=== PATIENT | female | born 1995 | race Caucasian/White ===

== ENCOUNTER → 2024-09-26 07:55 | Outpatient (CLI) | payer MEDICARE, MEDICAID, SELFPAY ==
--- OUTSIDE RECORDS SUMMARY | 2024-09-26 07:58 | XMS_ITS | Continuity of Care Document ---
Author Organization [facility], [facility] Address [address] [place] [address] Assessment No assessment recorded. Plan of Treatment Reminders Order Date Submit Date Provider Last Modified By Organization Details Last Modified Time Details Appointments None recorded. Lab None recorded. Referral physical therapist referral 2024 025 [email or web address] [facility], [address], [place], [address], 5 13:11:52 physical therapist referral 2024 025 [email or web address] [facility], [address], [place], [address], 5 13:11:52 Procedures None recorded. Surgeries None recorded. Imaging XR, knee, 3 view 2024 025 [email or web address] 8 Not available 13:19:42 XR, wrist, 3 or more view 2024 025 [email or web address] 8 [facility], [address] [place] [address] , [place], [address], 13:19:42 Medication Orders None recorded. Patient TargetsNo targets recorded. Patient InstructionsNo instructions recorded. Reason for Referral Physical Therapist Referral for Pain of right knee joint Referring Physician: [facility], Encounter Date: 09/21/2024 Physical Therapist Referral for Pain of left wrist Referring Physician: [facility], Encounter Date: 09/21/2024 Results Created Date Observation Date Name Description Value Unit Range Abnormal Flag Note LastModifiedBy Organization Detail LastModifiedTime 09/04/19 25 US, abdom en, compl ete No observ ation record ed. [email or web address] Not Available 2024 15:51:14 Result Notes None recorded. Problems Name Problem SNOMED Code Status Onset Date Resolution Date Notes Provider Name and Address Organization Details Recorded Time Fibromyalgia 494627585 Active 2024 Yahaira EvansCARLOS glover [address], [place], [address], [place] - [facility] 5 11:12:18 Obsessive-comp ulsive disorder 455376616 Active 2024 Yahaira PandeyROBBIEC [address], [place], [address], [place] - [facility] 5 11:12:28 Bipolar disorder 22538136 Active 2024 Yahaira EvansROBBIE gloverC [address], [place], [address], [place] - [facility] 5 11:12:36 Migraine 54976756 Active 2024 Yahaira Pandey ROBBIEC [address], [place], [address], [place] - [facility] 5 11:12:44 Iron deficiency 69921226 Active 2024 Yahaira Pandey ROBBIEC [address], [place], [address], [place] - [facility] 5 09:36:47 Problem Notes None recorded. Procedures Surgical History Date Name Laterality Status Provider Name and Address Organization Details Recorded Time 11/17/19 25 Hysterectomy completed Zonia Valadez [place] - [facility] 07/05/2024 10:21:49 12/10/19 24 Hysterectomy completed Zonia Allyson [place] - [facility] 06/26/2024 10:42:30 11/17/19 24 Adnexal surgery completed Zonia Valadez [place] - [facility] 07/05/2024 10:21:49 04/18/19 04 ENT Surgery completed Zonia Valadez [place] - [facility] 07/05/2024 10:21:49 Wrist arthroscopy/surge ry completed Zoniafaith Valadez [place] - [facility] 06/26/2024 10:41:14 Elbow arthroscopy/surge ry completed Zonia Allyson [place] - [facility] 06/26/2024 10:41:27 Ankle arthroscopy/surge ry completed Zonia Allyson [place] - [facility] 06/26/2024 10:41:34 tonsillectomy completed Zoniafaith Valadez [place] - [facility] 06/26/2024 10:41:45 adenoid excision completed Zonia Allyson [place] - [facility] 06/26/2024 10:41:59 Imaging Results None recorded. Procedure Notes None recorded. Medical Equipment None Reported. Medications Name Sig Start Date Stop Date Status Note LastModified by Organization Details LastModified Time naltrexone 50 mg tablet Take 1 tablet every day by oral route as directed . 2024 active Not Available Not Available Not Avai lable gabapentin 800 mg tablet Take 1 tablet 3 times a day by oral route as directed . active Not Available Not Available No t Available lithium carbonate 300 mg capsule Take 1 capsule twice a day by oral route as directed . active Not Available Not Available No t Available rizatriptan 10 mg disintegrati ng tablet Take 1 tablet as needed by oral route. 07/23 completed Not Available Not Available Not Available ferrous sulfate 325 mg (65 mg iron) tablet Take 1 tablet 3 times a day by oral route for 30 days. 2024 active Not Available Not Available Not Avai lable vitamin B complex tablet Take 1 tablet every day by oral route for 30 days. 2024 active Not Available Not Available Not Avai lable fluoxetine 20 mg capsule Take 1 capsule every day by oral route as directed . active Not Available Not Available No t Available Ubrelvy 100 mg tablet TAKE ONE (1) TABLET BY MOUTH NEEDED MAY REPEAT IN TWO HOURS IF NEEDED 2024 active Not Available Not Available Not Avai lable Caplyta 42 mg capsule Take 1 capsule every day by oral route as directed . active Not Available Not Available No t Available Qulipta 30 mg tablet active Not Available Not Available No t Available Vitals Date Recorded Body height Body mass index (BMI) Body weight Body temperature Heart rate Oxygen saturation Oxygen saturation in Arterial blood by Pulse oximetry Respiratory rate Systolic blood pressure Diastolic blood pressure Provider Name and Address Organization Details Last Updated DateTime 06/06/202 5 172.72 cm 35.8 kg/m2 604770. 61 g 98.2 [degF] 95 /min 99 % 99 % 18 /min 118 mm[Hg] 76 mm[Hg] Zonia Valadez [place] - [facility] 13:06:37 Social History Question Answer Notes LastModified by Organizat ion Details LastModified Time Tobacco Smoking Status Never Smoker Zonia Valadez null, [place] - [facility] 06/26/2024 10:40:46 Do You Have An Advance Directive? No Information not available 07/05/2024 Is Blood Transfusion Acceptable In An Emergency? Yes Information not available 07/05/2024 What Is Your Level Of Caffeine Consumption? Heavy Information not available 07/05/2024 How Much Tobacco Do You Chew? None Information not available 07/05/2024 Are You Deaf Or Do You Have Serious Difficulty Hearing? No Information not available 07/05/2024 What Type Of Diet Are You Following? SPECIFIC Information not available 07/05/2024 What Is The Highest Grade Or Level Of School You Have Completed Or The Highest Degree You Have Received? [id number] Information not available 07/05/2024 What Was The Date Of Your Most Recent Tobacco Screening? 06/26/2024 Information not available 06/26/2024 How Many Children Do You Have? 0 Information not available 07/05/2024 Do You Use Protection Against STDs? Always Information not available 07/05/2024 What Is Your Relationship Status? Single Information not available 07/05/2024 Do You Use Your Seat Belt Or Car Seat Routinely? Yes Information not available 07/05/2024 Are You Sexually Active? No Information not available 07/05/2024 Do You Have Smoke And Carbon Monoxide Detectors In Your Home? Yes Information not available 07/05/2024 Are You Passively Exposed To Smoke? No Information no t available 07/05/2024 Do You Use Sunscreen Routinely? Yes Information not available 07/05/2024 Sex: Female Functional Status Question Answer Note LastModified by Organizat ion Details LastModified Time How many times per week do you consume alcohol? Less than 1 time per week Information not available 06/26/2024 Do you use any illicit or recreational drugs? No Information not available 06/26/2024 Do you or have you ever used any other forms of tobacco or nicotine? No Information not available 06/26/2024 What is your level of alcohol consumption? None Information not available 07/05/2024 Do you or have you ever used smokeless tobacco? Never used smokeless tobacco Information not available 07/05/2024 Are you currently employed? No Information not available 07/05/2024 Are you able to care for yourself? Yes Information not available 07/05/2024 Do you or have you ever used e-cigarettes or vape? Never used electronic cigarettes Information not available 07/05/2024 What is your exercise level? Moderate Information not available 07/05/2024 Mental Status Question Answer Note LastModified by Organization D etails LastModified Time Do you feel stressed (tense, restless, nervous, or anxious, or unable to sleep at night)? [id number] Information not available 07/05/2024 Family History Relationship Description Onset Age of this Age Resolved Age Notes LastModified by Organization Details LastModified Time Father Heart disease [email or web address] Not available 2024 10:21:24 Father Depressive disorder [email or web address] Not available 2024 10:39:45 Father Hypercholest erolemia [email or web address] Not available 2024 10:21:24 Father Harmful pattern of use of alcohol [email or web address] Not available 2024 10:21:24 Father Hypertensive disorder [email or web address] Not available 2024 10:21:24 Father Osteoporosis [email or web address] Not avai lable 07/05/2024 10:21:24 Mother Anxiety disorder [email or web address] Not available 2024 10:40:04 Mother Depressive disorder [email or web address] Not available 2024 10:21:24 Maternal Grandmother Malignant tumor of breast tfogleman Not available 2024 10:21:24 Maternal Grandmother Malignant tumor of cervix tfogleman Not available 2024 10:21:24 Maternal Grandmother Malignant neoplasm of ovary tfogleman Not available 2024 10:21:24 Maternal Grandmother Arthritis tfogleman Not available 10:21:24 Sister Substance abuse [email or web address] Not available 2024 10:21:24 Medical History Condition Response Anxiety Disorder Y Eating Disorder Y Muscle, Joint, or Bone Problems Y Obesity Y Endometriosis Y Vision or Eye Problems Y Arthritis Y Ovarian Cyst Y Fibromyalgia Y Gynecological History Statement/Question Response Abnormal Pap N Flow Heavy Date of LMP 12/01/2023 Post Menopausal Bleeding N STIs/STDs N HPV Vaccine Y Duration of Flow (days) 0 Age at Menarche 17 Current Control Method Hysterectom y Frequency of Cycle (Q days) 0 Sexually Active? N Hormone Replacement Therapy N Obstetrics History GPAL:G 0 P 0 0 0 0 Past Encounters Encounter ID Performer Location Encounter Start Date Encounter Closed Date Diagnosis/Indication Diagnosis SNOMED-CT Code Diagnosis ICD10 Code Diagnosis Note [id number] Yahaira Pandey PA-C [facility] [address] [place] [address] 08/30/2024 09:35:23 08/30/2024 10:23:14 Iron deficiency 81768095 E61.1 Body mass index 30+ - obesity 364718543 Z68.36 Obesity 107150815 E66.9 Loss of hair 754673230 L 65.9 Abdominal discomfort 433 54153 R10.9 [id number] Yahaira Pandey PA-C [facility] [address] [place] [address] 09/21/2024 13:01:04 09/21/2024 13:19:42 Pain of right knee joint 1257628623 26591 M25.561 Pain of left wrist 98749 19176 62660 M25.532 Health Concerns Section Related Observation LastModified by Organization Detai ls LastModified Time None Recorded Concern Status LastModified by Organization Details LastModified Time None Recorded Payers Encounter Date Sequence Insurance Name Policy Number Policy Gaxiola Covered Member ID Gaxiola Member ID Guarantor Name 09/21/2024 1 [facility] (MEDICARE REPLACEMENT/A DVANTAGE - PPO) RICH Haynes [id number] Pravin Haynes Notes Date Note Type Note Provider Name and Address Organization Details Recorded Time 09/21/2024 text/html Pt is a 28 yo fe male with R knee pain that worsened Sep 01 2024 after stepping into a hole and hyperextending the knee. She reports having joint problems all her life. She is requesting custom made braces for the knee and wrist. I explained that braces take the place of the normal body anatomy and can decrease muscle tone, prevent the ability of strentfthening the joints and can prolong pain syndromes. Giving a brace at this juncture would be detrimental. She would be better served doing PT to strengthen her muscles to prevent future injuries. She is agreeable to PT. She also has L wrist pain. 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 Yahaira Pandey PA-C [address], [place], [address], [place] - [facility] 09/21/2024 13:22:52 OBGyn Episode No OBEpisode recorded.
--- OUTSIDE RECORDS SUMMARY | 2024-09-26 07:58 | XMS_ITS | Clinical Summary ---
Author Organization [facility] Address [address] [place] [address] Phone Care Team Providers Care Crop Picker Name Role Phone Marlene Nieto NP Primary Care Provider [phone] Shailesh Perez PT Unavailable Allergies Active Allergy Reactions Criticality Noted Date Comments Cottonseed Oil Hives,Itching 03/02/2023 Erythema and itching, swelling at injection site of testosterone CYPIONATE Fluoxetine Other (See Comments) 05/14/2019 Anxiety even with low dose Iodine Anaphylaxis High 04/29/2018 Shellfish Containing Products Anaphylaxis High 07/30/2021 Shellfish Derived Anaphylaxis High 08/24/2022 Shrimp Anaphylaxis High 07/22/2022 Medications testosterone enanthate (DELATESTRYL) 200 mg/mL IM Oil Inject 60 mg into the muscle once a week. 03/30/2023 Active BD TUBERCULIN SYRINGE 1 mL 25 gauge x 5/8 Misc Syringe Inject 1 Each into the muscle once a week. 02/24/2023 Active cetirizine (ZYRTEC) 10 mg Oral Tablet Take 10 mg by mouth daily. 04/12/2023 Active lurasidone (LATUDA) 40 mg Oral Tablet Take 40 mg by mouth daily. 04/19/2023 Active EPINEPHrine (EPIPEN) 0.3 mg/0.3 mL Inj Auto-InjectorIn dications:Fibro myalgia Inject 0.3 ml into the muscle as needed for Anaphylaxis. 2 mL 1 06/10/2023 Active Walker Misc MiscIndications :Weakness,Falls frequently,Fibr omyalgia 1 Each by Misc.(Non-Tremayne g; Combo Route) route daily. 07/01/2023 Active naltrexone (REVIA) 50 mg Oral Tablet Take 50 mg by mouth daily. 08/21/2023 Active lithium (LITHOBID) 300 mg Oral Tablet Sustained Release Take 300 mg by mouth 2 times daily. 08/03/2023 Active gabapentin (NEURONTIN) 400 mg Oral CapsuleIndicati ons:Fibromyalgi a Take 2 Capsules by mouth 3 times daily. 540 Capsule 2 02/28/2024 Active Active Problems Problem Noted Date Diagnosed Date Encounter for Medicare annual wellness exam 10/2023 Assessment & Plan (08/23/2023 11:42 AM EDT): Annual Medicare Wellness Visit completed. Lab work ordered. Care gaps addressed. Screenings reviewed. Patient to finish a HPV vaccination series through [employer]. Patient to inquire after cervical cancer screening through the [facility]. Generalized osteoarthritis of multiple sites 10/2023 Assessment & Plan (08/23/2023 11:39 AM EDT): Discussed presence of arthritis and recommended treatment therapies. Encourage increased physical activity and mobility exercises. Obsessive compulsive disorder 08/01/2023 Allergy to shellfish 06/06/2023 Assessment & Plan (06/06/2023 1:31 PM EST): Prescription for EpiPen sent to pharmacy. Patient aware to repeat use if no improvement of symptoms within 10 minutes if EMS has not responded. Patient aware to be seen in the emergency department if they do need to utilize an EpiPen. Bipolar disorder in partial remission 06/02/2023 Overview (06/06/2023): Last Assessment & Plan: Remains in care with counseling and psychiatry Falls frequently 05/19/2023 Assessment & Plan (08/23/2023 11:43 AM EDT): Utilizing Rolator. Falls decreased with use of rollator. Encouraged continued rollator use. Assessment & Plan (06/06/2023 1:31 PM EST): Utilizing cane. Assessment & Plan (05/19/2023 4:51 PM EST): Patient notes falling frequently at home. Utilizing cane in the home but would like wheelchair for assistance when out shopping. Chronic pain of both knees 05/19/2023 Assessment & Plan (05/19/2023 4:52 PM EST): Patient reports chronic pain in knees. Notes this makes ambulating difficult. Requesting wheelchair for ambulation assistance. Weakness 05/19/2023 Assessment & Plan (08/23/2023 11:41 AM EDT): PT recommended bariatric rollator. Prescription was sent to [facility]. Improvement of mobility and decrease falls with use of bariatric rollator. Assessment & Plan (05/19/2023 4:51 PM EST): Patient reports generalized weakness. Recommend referral to physical therapy for mobility assessment. Myalgia 05/19/2023 Otalgia of both ears 04/20/2023 Assessment & Plan (04/20/2023 11:59 AM EST): Symptoms intermittent. Likely secondary to eustachian tube dysfunction with allergy symptoms. Instructed to use Fluticasone nasal spray - 1 spray, ear nare, daily. Instructed to spray the medication in bilateral nares at a perpendicular angle then pinch nose and blow gently to milk the spray into the eustachian tube. Advised to continue use of Cetrizine 10 mg daily (or other preferred OTC antihistamine) until symptoms resolve. Injection site reaction 02/14/2023 Assessment & Plan (02/14/2023 3:15 PM EDT): Advised patient that it appears they are having an immunization injection site reaction with reactionary lymph nodes near the site of injection. No concern for cellulitis at this time. Only mild erythema at injection site. Encouraged to continue alternating acetaminophen/ibuprofen and encouraged to try utilizing heat/ice therapy for discomfort. Advised that if they develop erythema or swelling around the injection site, or if lymphadenopathy worsens/doesn't continue to improve, to follow up sooner in office. Patient already scheduled for annual wellness next week. Generalized anxiety disorder 11/15/2022 Post traumatic stress disorder (PTSD) 11/15/2022 Piercing 08/20/2022 Assessment & Plan (08/20/2022 4:05 PM EDT): Concern for infection around piercing. We will treat empirically with amoxicillin. Advised that if symptoms worsen or do not improve in the next 2-3 days, advised to call and we will add on Metronidazole. Gender dysphoria 07/26/2022 Overview (08/23/2023): Following with [facility] affirming services Assessment & Plan (08/23/2023 8:49 AM EDT): Currently undergoing HRT. Tolerating well. Assessment & Plan (08/20/2022 11:32 AM EDT): Currently undergoing HRT. Tolerating well. Morbid obesity 07/22/2022 Assessment & Plan (08/23/2023 11:40 AM EDT): Wt Readings from Last 3 Encounters: 08/23/23 290 lb (131.5 kg) 06/06/23 292 lb (132.5 kg) 05/19/23 296 lb (134.3 kg) Complicates care. Encouraged continued dietary and lifestyle modifications for weight loss. Encouraged increased overall activity, regular mobility exercise Assessment & Plan (06/06/2023 1:30 PM EST): Weight in office today 292 pounds, BMI 44.40 Weight at last office visit 286 lbs, BMI 43.49 Encouraged continued lifestyle modifications. Complicates care. Assessment & Plan (05/19/2023 4:49 PM EST): Weight at last office visit 286 lbs, BMI 43.49 Patient refused weight check again today. Encouraged continued lifestyle modifications. Complicates care. Assessment & Plan (08/20/2022 2:05 PM EDT): Weight at last office visit 286 lbs, BMI 43.49 Patient refused weight check today. Encouraged continued lifestyle modifications. Likely to see further weight loss with testosterone therapy and increased activity/dietary modifications. Assessment & Plan (07/22/2022 5:25 PM EDT): Weight in office 286 lb BMI 43.49. Patient notes that she started exercising recently. Advised patient that weight loss of 15 pounds over a 6-week timeframe is significant. Advised patient that a sustainable weight loss should have a goal of 1 to 2 pounds per week. Discussed the possibility of referral to [facility] surgical Associates. Encourage patient to look into the bariatric surgical information sessions provided by [facility]. Advised that she would be able to find further information regarding qualifications and expectations for these surgical and nonsurgical options. We will hold off on referral for now. Encouraged continued dietary and lifestyle modifications. Bipolar 1 disorder 07/22/2022 Assessment & Plan (08/23/2023 8:48 AM EDT): Following with psychiatry through [facility]. Assessment & Plan (08/20/2022 2:04 PM EDT): On the wait list to established with new psychiatry provider through [facility]. Assessment & Plan (07/22/2022 5:26 PM EDT): Patient given information for [place] therapy group and advised to reach out to them to establish care with local psychiatric provider. Personality disorder 07/22/2022 Assessment & Plan (08/23/2023 8:48 AM EDT): Following with psychiatry through [facility]. Also to establish with psychiatry through the [facility]. Other fpc (current) drug therapy Assessment & Plan (07/22/2022 5:26 PM EDT): Long-term use of antipsychotics which can cause increased lipid and blood glucose levels. Monitoring lab work ordered today. Lorenzo use 07/22/2022 Assessment & Plan (08/20/2022 11:29 AM EDT): Lorenzo levels within normal range. Assessment & Plan (07/22/2022 5:26 PM EDT): Level ordered today along with other monitoring lab work. Fibromyalgia 07/22/2022 Assessment & Plan (08/23/2023 8:46 AM EDT): Patient has established with the [facility]. Doing well on current treatment regimen. Assessment & Plan (06/06/2023 1:31 PM EST): Patient notes increased pain during flares. Requesting referral to pain management clinic. Referral to [facility] to be completed. Assessment & Plan (05/19/2023 4:50 PM EST): Taking gabapentin for pain. Patient reports regular low impact exercises. Patient notes increased pain and weakness secondary to fibromyalgia. Requesting wheelchair for ambulation assistance. Would recommend having a mobility examination as this is likely to be required by insurance prior to approval. Referral to PT placed today for mobility assessment. Assessment & Plan (08/20/2022 2:03 PM EDT): Improvement of pain with increased dose of gabapentin. Continue with current dosing. Follow-up in 6 months. Assessment & Plan (07/22/2022 5:29 PM EDT): Advised patient that I am happy to take over her gabapentin prescription until she is able to establish care with rheumatology. Advised that I would not recommend suddenly increasing dose to higher levels. Instructed to slowly increase dose of gabapentin. Instructed to take 800 mg in the AM, 400 mg in the afternoon, and 400 mg in the evening for 1-2 weeks, see if symptoms improve. If no improvement, increase to 800 mg in the AM, 800 mg in the afternoon, and 400 mg in the evening for 1-2 weeks, see if symptoms improve. If no improvement, increase to 800 mg three times a day for 1-2 weeks, see if symptoms improve. Follow up in 4 weeks to evaluate for improvement of symptoms. Obstructive sleep apnea 08/03/2021 Overview (08/23/2023): PSG 07/2021: AHI 6.1 (supine AHI 12, right side AHI 0) with 02 kumar of 88%. CPAP recommended due to daytime somnolence, as well as weight loss. Assessment & Plan (08/23/2023 8:47 AM EDT): Continue following with sleep medicine. Subclinical hypothyroidism 12/05/2019 Family history of breast cancer 05/21/2019 History of self injurious behavior 01/29/2019 Mixed anxiety and depressive disorder 01/29/2019 Resolved Problems Problem Noted Date Diagnosed Date Resolved Date Chronic midline low back toby n without sciatica 11/15/2023 01/23/2024 Fibromyalgia 06/20/2023 06/20/2023 General weakness 06/20/2023 06/20/2023 Frequent falls 06/20/2023 06/20/2023 Elevated blood pressure read ing in office without diagnosis of hypertension 07/22/20222023 Assessment & Plan (08/20/2022 2:05 PM EDT): Blood pressure in office 124/82. No current medications needed. Lab work up to date. Assessment & Plan (07/22/2022 5:33 PM EDT): Blood pressure elevated in office at 142/82. Patient is currently incorporating more dietary and lifestyle modifications. Patient notes anxiety with new appointment. Will recheck at next office visit in 1 month. Immunizations Immunization Administration Dates Next Due HPV 9 Valent 02/24/2023,10/10/2020 Influenza Patient Reported 03/01/2022,,03/17/2020,06/15 Influenza Vaccine Quadrivalent 02/12/2023 Influenza Vaccine Quadrivalent PF 2022,03/01/2022,03/17/2021,03/17,06/15/2019 Meningococcal Conjugate 11/22/2014 Moderna SARS-CoV-2 Vaccine 1 2+ Yrs (Light blue border) 04/08/2021,08/27/2020,07/30/2020 Tdap 06/15/2019 Surgical History Surgery Date Site/Laterality Comments WRIST SURGERY 04/18/2015 - 04/17/2016 Left ELBOW SURGERY 04/18/2015 - 04/17/2016 Right ANKLE SURGERY 04/18/2014 - 04/17/2015 Right Medical History Medical History Date Comments Anxiety disorder Bipolar disorder (HCC) Fibromyalgia Family History Medical History Relation Name Comments Mental Retardation Brother 1 autism Mental Retardation Brother 2 autism Depression Father Cancer Maternal Grandmother Mental Illness Maternal Grandmother bipol ar, anxiety Mental Illness Mother bipolar, anxi ety No Known Problems Sister Relation Name Status Comments Brother 1 Alive Brother 2 Alive Father Alive Maternal Grandmother Mother Alive Sister Alive Social History Tobacco Use Types Packs/Day Years Used Date Smoking Tobacco: Never Smokeless Tobacco: Never Tobacco Cessation:Counseling Given: Not Answered Alcohol Use Standard Drinks/Week Comments Not Currently 0 (1 standard drink = 0.6 oz pur e alcohol) Overall Financial Resource Strain (CARDIA) Answe r Date Recorded How hard is it for you to pa y for the very basics like food, housing, medical care, and heating? Hard 06/02/2023 PHQ-2 Answer Date Recorded PHQ-2 Total Score 4 08/18/2023 Hunger Vital Sign Answer Date Recorded Within the past 12 months, y ou worried that your food would run out before you got the money to buy more. Sometimes true Within the past 12 months, t he food you bought just didn't last and you didn't have money to get more. Often true PRAPARE - Transportation Answer Date Re corded In the past 12 months, has l ack of transportation kept you from medical appointments or from getting medications? Yes 05/19 In the past 12 months, has l ack of transportation kept you from meetings, work, or from getting things needed for daily living? Yes 06/02/2023 Housing Stability Vital Sign Answer Rafiq e Recorded In the last 12 months, was t here a time when you were not able to pay the mortgage or rent on time? No 06/02/2023 In the last 12 months, how many places have you lived? 1 06/02/2023 In the last 12 months, was t here a time when you did not have a steady place to sleep or slept in a fpc (including now)? No 06/02/2023 Comments No Sex and Gender Information Value Date Recorded Sex Assigned at Female 07/22/2022 3:11 PM EDT Legal Sex Female 3:08 PM EST Gender Identity asexual 07/22/2022 5:11 PM EDT Sexual Orientation Choose not to disclose 2022 3:11 PM EDT Obstetrics History Last Filed Vital Signs Vital Sign Reading Time Taken Comments Blood Pressure 119/72 12/25/2023 11:17 PM EDT Pulse 67 12/25/2023 11:17 PM EDT Temperature 37.1 C (98.8 F) 12/25/2023 8:57 PM EDT Respiratory Rate 22 12/25/2023 8:57 PM EDT Oxygen Saturation 98% 12/25/2023 11:17 PM EDT Inhaled Oxygen Concentration - - Weight 124 kg (273 lb 5.9 oz) 12/25/2023 8:57 PM EDT Height 172.7 cm (5' 8 ) 12/25/2023 8:57 PM EDT Body Mass Index 41.57 12/25/2023 8:57 PM EDT Plan of Treatment Health Maintenance Due Date Last Done Comments Pap Smear 2017 Cervical Cancer Screening 08/20/2020 COVID-19 Vaccine ( season) 2023 02/12/2023, 04/08/2021, 08/27/2020, Additional history exists Wellness Exam Medicare 08/23/2024 08/23/2023 HPV/Pap Cotest 2026 08/19/2020 DTaP/TDaP/Td (2 - Td or Tdap) 06/15/2029 06/15/2019 Influenza Vaccine Completed 01/18/2024, , 02/12/2023, Additional history exists HIV Screening Discontinued Hepatitis B Vaccine Discontinued Meningococcal B Vaccine Aged Out No l onger eligible based on patient's age to complete this topic Pneumococcal Vaccine 0-49 Aged Out No longer eligible based on patient's age to complete this topic Insurance MEDICAID [place] [employer] MEDICARE PPO MR Care Teams Crop Picker Relationship Specialty Start Date End Date Marlene Nieto NP [facility] [place] [address] PCP - General Nurse Practitioner-Family 07/22/22 Shailesh Perez, PT [facility] [place] [address] [place] [address] [phone] Physical Therapist Physical Therapist 06/20/23
--- OUTSIDE RECORDS SUMMARY | 2024-09-26 07:58 | XMS_ITS | Continuity of Care Document ---
Author Organization [facility] Address [address] [place] [address] Assessment No assessment recorded. Plan of Treatment Reminders Order Date Submit Date Provider Last Modified By Organization Details Last Modified Time Details Appointments None recorded. Lab hormone panel, serum or plasma 2024 025 [facility], [address], [address] [address], [place], [address], 22:09:17 iron + total iron-keith ng capacity (TIBC), serum 2024 025 [facility], [address], [place] [address], [place], [address], 5 22:09:18 ferritin, serum or plasma 2024 025 [facility], [address], [address] [address], [place], [address], 5 22:09:18 CBC w/ auto diff 2024 025 [facility], [address] [place] [address], [place], [address], 5 22:09:17 Referral None recorded. Procedures None recorded. Surgeries None recorded. Imaging US, abdomen, complete 2024 025 KERI Not available 13:56:50 Medication Orders None recorded. Patient TargetsNo targets recorded. Patient Instructions Encounter Date Encounter Id Patient Instructions Last Modified By Organization Details Last Modified Time 08/30/2024 [id number] learning about healthy weight ehimes Not available 08/30/2024 10:24:53 body mass index: care instructions ehimes Not available 08/30/2024 10:24:53 Will call with lab results ehimes Not available 08/30/2024 10:17:11 Reason for Referral None Reported. Results Created Date Observation Date Name Description Value Unit Range Abnormal Flag Note LastModifiedBy Organization Detail LastModifiedTime 09/04/19 25 US, abdom en, compl ete No observ ation record ed. [email or web address] Not Available 2024 15:51:14 Result Notes None recorded. Problems Name Problem SNOMED Code Status Onset Date Resolution Date Notes Provider Name and Address Organization Details Recorded Time Fibromyalgia 022848033 Active 2024 Yahaira Pandey PA-C [address], [place], [address], [place] - [facility] 5 11:12:18 Obsessive-comp ulsive disorder 899527525 Active 2024 Yahaira Pandey PA-C [address], [place], [address], [place] - [facility] 5 11:12:28 Bipolar disorder 87354076 Active 2024 Yahaira Pandey PA-C [address], [place], [address], [place] [facility] 5 11:12:36 Migraine 90835189 Active 2024 Yahaira Pandey PA-C [address], [place], [address], [place] [facility] 5 11:12:44 Iron deficiency 78570447 Active 2024 Yahaira Pandey PA-C [address], [place], [address], [place] - [facility] 5 09:36:47 Problem Notes None recorded. Procedures Surgical History Date Name Laterality Status Provider Name and Address Organization Details Recorded Time 11/17/19 25 Hysterectomy completed Zonia Valadez [place] - [facility] 07/05/2024 10:21:49 12/10/19 24 Hysterectomy completed Zonia Valadez [place] - [facility] 06/26/2024 10:42:30 08/01/20 24 Adnexal surgery completed Zonia Valadez [place] - [facility] 07/05/2024 10:21:49 04/18/19 04 ENT Surgery completed Zonia Allyson [place] - [facility] 07/05/2024 10:21:49 Wrist arthroscopy/surge ry completed Zonia Nathanman [place] - [facility] 06/26/2024 10:41:14 Elbow arthroscopy/surge ry completed Zonia Allyson [place] - [facility] 06/26/2024 10:41:27 Ankle arthroscopy/surge ry completed Zonia Nathanman [place] - [facility] 06/26/2024 10:41:34 tonsillectomy completed Zonia H[place] - [facility] 06/26/2024 10:41:45 adenoid excision completed Zonia HALE - [facility] 06/26/2024 10:41:59 Imaging Results [...] and Address Organization Details Last Updated DateTime 172.72 cm 36.9 kg/m2 898150. 15 g 98.2 [degF] 107 /min 99 % 99 % 18 /min 118 mm[Hg] 78 mm[Hg] Zonia Valadez [place] - [facility] 09:43:51 Social History Question Answer Notes LastModified by [...] Or The Highest Degree You Have Received? [id number] Information not available 07/05/2024 What Was The [...] anxious, or unable to sleep at night)? [id number] Information not available 07/05/2024 Family History Relationship [...] SNOMED-CT Code Diagnosis ICD10 Code Diagnosis Note [id number] Yahaira Pandey PA-C [facility] [address] [place] [address] 08/30/2024 09:35:23 08/30/2024 10:23:14 Iron deficiency 51219274 E61.1 Body mass index 30+ - obesity 500909789 Z68.36 Obesity 849652930 E66.9 Loss of hair 725502687 L 65.9 Abdominal discomfort 433 97994 R10.9 Health Concerns Section Related Observation LastModified by Organization Detai ls LastModified Time None Recorded Concern Status LastModified by Organization Details LastModified Time None Recorded Payers Encounter Date Sequence Insurance Name Policy Number Policy Gaxiola Covered Member ID Gaxiola Member ID Guarantor Name 08/30/2024 1 [facility] (MEDICARE REPLACEMENT/A DVANTAGE - PPO) RICH Haynes [id number] Pravin Haynes Notes Date Note Type Note Provider Name and Address Organization Details Recorded Time 08/30/2024 text/html Pt is a 28 yo female with hx of iron deficiency. We are rechecking labs today.She is concerned about hair loss. She wants her hormones checked. SHe has 1 ovary remaining.She also has abdominal discomfort since having her hysterectomy 11/2023.Also has lesions on the R shoulder, posterior aspect. Yahaira Pandey PA-C [address], [place], [address], [place] - [facility] 08/30/2024 10:21:30 OBGyn Episode No OBEpisode recorded.
--- OUTSIDE RECORDS SUMMARY | 2024-09-26 07:58 | XMS_ITS | Clinical Summary ---
Author Organization [facility] Address [address] [place] [address] Care Team Providers Care Mechanical Energy Engineer Name Role Phone Christine Ladd PA-C Primary Care Provider + Allergies Active Allergy Reactions Criticality Noted Date Comments Iodine Anaphylaxis High 07/30/2021 Shellfish Allergy Anaphylaxis High 07/30/2021 Social History Tobacco Use Types Packs/Day Years Used Date Smoking Tobacco: Never Assessed Sex and Gender Information Value Date Recorded Sex Assigned at Not on file Legal Sex Male 10:38 AM EDT Gender Identity Not on file Sexual Orientation Not on file Plan of Treatment Not on file Care Teams Mechanical Energy Engineer Relationship Specialty Start Date End Date Christine Ladd PA-C [address] [place] [address] PCP - General 07/13/21
--- OUTSIDE RECORDS SUMMARY | 2024-09-26 07:58 | XMS_ITS | Data Portability ---
Author Organization [facility] Address [address] [facility] [place] [address] Assessment Encounter Date Assessment Date Assessment LastModified by Organization Details LastModified Time 06/26/2024 06/26/2024 Supplied her with a hand/wrist brace for her left hand. Referral sent for a nerve conduction study. Recommended her to continue taking the Aleve as needed for pain relief and to rest it as much as possible. Pt understands to make a follow-up appointment after her nerve conduction study is completed. [email or web address] Not available 06/26/2024 11:46:11 Plan of Treatment Reminders Order Date Submit Date Provider Last Modified By Organization Details Last Modified Time Details Appointments None recorded. Lab hormone panel, serum or plasma 2024 025 KERI [facility], [address], [address], [place], [address], 22:09:17 iron + total iron-bindin g capacity (TIBC), serum 2024 025 KERI [facility], [address], [place] [address], [place], [address], 22:09:18 ferritin, serum or plasma 2024 025 KERI [facility], [address], [place] [address], [place], [address], 22:09:18 CBC w/ auto diff 2024 025 KERI [facility], [address], [address] [address], [place], [address], 5 22:09:17 magnesium, serum or plasma 2024 025 KERI [facility], [address], [address] [address], [place], [address], 5 09:15:57 vitamin D, 25-hydroxy, total, serum 2024 025 KERI [facility], [address], [place] [address], [place], [address], 5 09:15:55 CBC w/ auto diff 2024 025 KERI [facility], [address], [place] [address], [place], [address], 5 09:15:52 iron + total iron-bindin g capacity (TIBC), serum 2024 025 KERI [facility], [address], [place] [address], [place], [address], 5 09:15:54 TSH + free T4, serum 2024 025 KERI [facility], [address], [address] [address], [place], [address], 5 09:15:52 vitamin B12, serum 2024 025 KERI [facility], [address], [place] [address], [place], [address], 5 09:15:57 thiamine, QN, blood 2024 025 KERI [facility], [address], [place] [address], [place], [address], 5 09:15:56 vitamin B6 + metabolites panel, serum or plasma 2024 025 KERI [facility], [address], [address] [address], [place], [address], 5 09:15:55 BMP, serum or plasma 2024 025 KERI [facility], [address], [place], [address], 5 09:15:53 Referral physical therapist [facility] 2024 0[email or web address], [address], [place], [address], 5 13:11:52 physical therapist referral 2024 025 [email or web address], [address], [place], [address], 5 13:11:52 Procedures None recorded. Surgeries None recorded. Imaging XR, knee, 3 view 2024 025 [email or web address] 8 Not available 5 13:19:42 XR, wrist, 3 or more view 2024 025 [email or web address] 8 [facility], [address] [facility] , [place], [address], 5 13:19:42 US, abdomen, complete 2024 025 KERI Not available 13:56:50 electromyog lindsay + nerve conduction study 2024 025 [facility], [address] [facility] , [place], [address], 5 16:48:00 Medication Orders Qulipta 30 mg tablet 2024 025 KER[facility], [address], [place], [address], 5 15:26:09 Qulipta 30 mg tablet 2024 025 [facility], [address], [facility], [address], 10:37:14 Ubrelvy 100 mg tablet 2024 025 K[facility], [address], [place], [address], 10:37:14 Patient TargetsNo targets recorded. Patient Instructions Encounter Date Encounter Id Patient Instructions Last Modified By Organization Details Last Modified Time 07/05/2024 [id number] Rx and samples given of ubrelvy ehimes Not available 07/05/2024 10:44:29 08/30/2024 [id number] learning about healthy weight ehimes Not available 08/30/2024 10:24:53 body mass index: care instructions ehimes Not available 08/30/2024 10:24:53 Will call with lab results ehimes Not available 08/30/2024 10:17:11 Reason for Referral Physical Therapist Referral for Pain of right knee joint Referring Physician: [facility], Encounter Date: 09/21/2024 Physical Therapist Referral for Pain of left wrist Referring Physician: [facility], Encounter Date: 09/21/2024 Results Created Date Observation Date Name Description Value Unit Range Abnormal Flag Note LastModifiedBy Organization Detail LastModifiedTime 07/24/1907/24/2024 TSH+F REE T4 TSH 1.220 uIU/m L 0.450- 4.500 normal Not Available [facility] ([facility]) [address] [place], [address], 07/27/2024 09:15:52 07/24/1907/24/2024 TSH+F REE T4 T4,free(dire ct) 0.93 NG/dL 0.82-1 .77 normal Not Available [facility] ([facility]) [address] [facility], [place], [address], 07/27/2024 09:15:52 07/24/19 25 07/24/2024 CBC WITH DIFFE RENTI AL/PL ATELE T WBC 10.9 x10e3 /uL 3.4-10 .8 above high normal Not Available [facility] ([facility]) [address] [facility], [place], [address], 07/27/2024 09:15:52 07/24/19 25 07/24/2024 CBC WITH DIFFE RENTI AL/PL ATELE T RBC 4.84 x10e6 /uL 3.77-5 .28 normal Not Available [facility] ([facility]) [address] [place], [address], 07/27/2024 09:15:52 07/24/19 25 07/24/2024 CBC WITH DIFFE RENTI AL/PL ATELE T hemoglobin 13.4 g/dL 11.1-1 5.9 normal Not Available [facility] ([facility]) [address] [place], [address], 07/27/2024 09:15:52 07/24/19 25 07/24/2024 CBC WITH DIFFE RENTI AL/PL ATELE T hematocrit 42.5 % 34.0-4 6.6 normal Not Available [facility] ([facility]) [address] [place], [address], 07/27/2024 09:15:52 07/24/1907/24/2024 CBC WITH DIFFE RENTI AL/PL ATELE T MCV 88 fL 79-97 normal Not Available [facility] ([facility]) [address] [place], [address], 07/27/2024 09:15:52 07/24/19 25 07/24/2024 CBC WITH DIFFE RENTI AL/PL ATELE T MCH 27.7 pg 26.6-3 3.0 normal Not Available [facility] ([facility]) [address] [place], [address], 07/27/2024 09:15:52 07/24/19 25 07/24/2024 CBC WITH DIFFE RENTI AL/PL ATELE T MCHC 31.5 g/dL 31.5-3 5.7 normal Not Available [facility] ([facility]) [address] [facility], [place], [address], 07/27/2024 09:15:52 07/24/19 25 07/24/2024 CBC WITH DIFFE RENTI AL/PL ATELE T RDW 12.6 % 11.7-1 5.4 Not Available [facility] ([facility]) [address] [facility], [place], [address], 07/27/2024 09:15:52 07/24/19 25 07/24/2024 CBC WITH DIFFE RENTI AL/PL ATELE T platelets 386 x10e3 /uL 150-45 0 normal Not Available [facility] ([facility]) [address] [facility], [place], [address], 07/27/2024 09:15:52 07/24/19 25 07/24/2024 CBC WITH DIFFE RENTI AL/PL ATELE T neutrophils 66 % not estab. normal Not Available [facility] ([facility]) [address] [facility], [place], [address], 07/27/2024 09:15:52 07/24/19 25 07/24/2024 CBC WITH DIFFE RENTI AL/PL ATELE T lymphs 26 % not estab. normal Not Available [facility] ([facility]) [address] [facility], [place], [address], 07/27/2024 09:15:52 07/24/19 25 07/24/2024 CBC WITH DIFFE RENTI AL/PL ATELE T monocytes 5 % not estab. normal Not Available [facility] ([facility]) [address] [facility], [place], [address], 07/27/2024 09:15:52 07/24/19 25 07/24/2024 CBC WITH DIFFE RENTI AL/PL ATELE T eos 2 % not estab. normal Not Available [facility] ([facility]) [address] [place], [address], 07/27/2024 09:15:52 07/24/19 25 07/24/2024 CBC WITH DIFFE RENTI AL/PL ATELE T basos 1 % not estab. normal Not Available [facility] ([facility]) [address] [facility], [place], [address], 07/27/2024 09:15:52 07/24/19 25 07/24/2024 CBC WITH DIFFE RENTI AL/PL ATELE T immature cells BIOMETRICS HEAD Not Available [facility] ([facility]) [address] [place], [address], 07/27/2024 09:15:52 07/24/19 25 07/24/2024 CBC WITH DIFFE RENTI AL/PL ATELE T neutrophils (absolute) 7.2 x10e3 /uL 1.4-7. 0 above high normal Not Available [facility] ([facility]) [address] [place], [address], 07/27/2024 09:15:52 07/24/19 25 07/24/2024 CBC WITH DIFFE RENTI AL/PL ATELE T lymphs (absolute) 2.8 x10e3 /uL 0.7-3. 1 normal Not Available [facility] ([facility]) [address] [place], [address], 07/27/2024 09:15:52 07/24/19 25 07/24/2024 CBC WITH DIFFE RENTI AL/PL ATELE T monocytes(ab solute) 0.6 x10e3 /uL 0.1-0. 9 normal Not Available [facility] ([facility]) [address] [place], [address], 07/27/2024 09:15:52 07/24/19 25 07/24/2024 CBC WITH DIFFE RENTI AL/PL ATELE T eos (absolute) 0.2 x10e3 /uL 0.0-0. 4 normal Not Available [facility] ([facility]) [address] [facility], [place], [address], 07/27/2024 09:15:52 07/24/19 25 07/24/2024 CBC WITH DIFFE RENTI AL/PL ATELE T baso (absolute) 0.1 x10e3 /uL 0.0-0. 2 normal Not Available [facility] ([facility]) [address] [facility], [place], [address], 07/27/2024 09:15:52 07/24/19 25 07/24/2024 CBC WITH DIFFE RENTI AL/PL ATELE T immature granulocytes 0 % not estab. Not Available [facility] ([facility]) [address] [facility], [place], [address], 07/27/2024 09:15:52 07/24/19 25 07/24/2024 CBC WITH DIFFE RENTI AL/PL ATELE T immature grans (abs) 0.0 x10e3 /uL 0.0-0. 1 Not Available [facility] ([facility]) [address] [facility], [place], [address], 07/27/2024 09:15:52 07/24/19 25 07/24/2024 CBC WITH DIFFE RENTI AL/PL ATELE T NRBC BIOMETRICS HEAD Not Available [facility] ([facility]) [address] [facility], [place], [address], 07/27/2024 09:15:52 07/24/19 25 07/24/2024 CBC WITH DIFFE RENTI AL/PL ATELE T hematology comments: BIOMETRICS HEAD Not Available [facility] ([facility]) [address] [place], [address], 07/27/2024 09:15:52 07/24/19 25 07/24/2024 BASIC METAB OLIC PANEL (8) glucose 77 mg/dL 70-99 normal Not Available [facility] ([facility]) [address] [place], [address], 07/27/2024 09:15:53 07/24/19 25 07/24/2024 BASIC METAB OLIC PANEL (8) BUN 11 mg/dL 6-20 normal Not Available [facility] ([facility]) [address] [place], [address], 07/27/2024 09:15:53 07/24/19 25 07/24/2024 BASIC METAB OLIC PANEL (8) creatinine 0.98 mg/dL 0.57-1 .00 normal Not Available [facility] ([facility]) [address] [place], [address], 07/27/2024 09:15:53 07/24/19 25 07/24/2024 BASIC METAB OLIC PANEL (8) eGFR 81 mL/mi n/1.7 3 >59 normal Not Available [facility] ([facility]) [address] [place], [address], 07/27/2024 09:15:53 07/24/19 25 07/24/2024 BASIC METAB OLIC PANEL (8) BUN/creatini ne ratio 11 9-23 normal Not Available [facility] ([facility]) [address] [place], [address], 07/27/2024 09:15:53 07/24/19 25 07/24/2024 BASIC METAB OLIC PANEL (8) sodium 138 mmol/ L 134-14 4 normal Not Available [facility] ([facility]) [address] [place], [address], 07/27/2024 09:15:53 07/24/19 25 07/24/2024 BASIC METAB OLIC PANEL (8) potassium 4.8 mmol/ L 3.5-5. 2 normal Not Available [facility] ([facility]) [address] [facility] [place], [address], 07/27/2024 09:15:53 07/24/19 25 07/24/2024 BASIC METAB OLIC PANEL (8) chloride 104 mmol/ L 96-106 normal Not Available [facility] ([facility]) [address] [place], [address], 07/27/2024 09:15:53 07/24/19 25 07/24/2024 BASIC METAB OLIC PANEL (8) carbon dioxide, total 21 mmol/ L 20-29 normal Not Available [facility] ([facility]) [address] [place], [address], 07/27/2024 09:15:53 07/24/19 25 07/24/2024 BASIC METAB OLIC PANEL (8) calcium 9.1 mg/dL 8.7-10 .2 normal Not Available [facility] ([facility]) [address] [place], [address], 07/27/2024 09:15:53 07/24/19 25 07/24/2024 IRON AND TIBC iron bind.cap.(TI BC) 343 ug/dL 250-45 0 normal Not Available [facility] ([facility]) [address] [facility], [place], [address], 07/27/2024 09:15:54 07/24/19 25 07/24/2024 IRON AND TIBC UIBC 311 ug/dL 131-42 5 normal Not Available [facility] ([facility]) [address] [place], [address], 07/27/2024 09:15:54 07/24/19 25 07/24/2024 IRON AND TIBC iron 32 ug/dL 27-159 normal Not Available [facility] ([facility]) [address] [place], [address], 07/27/2024 09:15:54 07/24/19 25 07/24/2024 IRON AND TIBC iron saturation 9 % 15-55 alert low Not Available [facility] ([facility]) [address] [facility], [place], [address], 07/27/2024 09:15:54 07/24/19 25 07/25/2024 VITAM IN B6, PLASM A vitamin B6 10.9 ug/L 3.4-65 .2 normal Defic iency : <3.4 Rachana nal: 3.4 - 5.1 Adequ ate: >5.1 Not Available [facility] ([facility]) [address] [facility], [place], [address], 07/27/2024 09:15:55 07/24/19 25 07/24/2024 VITAM IN D, 25-HY DROXY vitamin D, 25-hydroxy 50.1 NG/mL 30.0-1 00.0 Vitam in D defic iency has been defin ed by the Insti tute of Medic ine and an Endoc rine Socie ty pract ice guide line as a level of serum 25-OH vitam in D less than 20 ng/mL (1,2) . The Endoc rine Socie ty went on to furth er defin e vitam in D insuf ficie ncy as a level betwe en 21 and 29 ng/mL (2). 1. IOM (Inst itute of Medic ine). 2010. Dieta ry refer ence zak es for calci um and D. Kelsey rashid [place]: The Natio nal [facility] Press . 2. Jammie pelaez MF, Leena friedman [place], [place] off-F errar i ROJO, et al. Evalu ation , treat ment, and preve ntion of vitam in D defic iency : an Endoc rine Socie ty clini sully pract ice guide line. JCEM. 2010; 96(7) :1911 -30. Not Available [facility] ([facility]) [address] [facility], [place], [address], 07/27/2024 09:15:55 07/24/1907/27/2024 VITAM IN B1 (THIA MINE) , BLOOD vit. B1, whole blood 162.9 nmol/ L 66.5-2 00.0 Not Available [facility] ([facility]) [address] [place], [address], 07/27/2024 09:15:56 07/24/19 25 07/24/2024 VITAM IN B12 vitamin B12 414 pg/mL 232-12 45 normal Not Available [facility] ([facility]) [address] [place], [address], 07/27/2024 09:15:57 07/24/19 25 07/24/2024 MAGNE SIUM magnesium 2.1 mg/dL 1.6-2. 3 normal Not Available [facility] ([facility]) [address] [place], [address], 07/27/2024 09:15:57 08/31/19 25 08/31/2024 LH+FS H+EST ROGEN LH 3.4 mIU/m L normal Adult Femal e Range Folli cular phase 2.4 - 12.6 Ovula tion phase 14.0 - 95.6 Lutea l phase 1.0 - 11.4 Postm enopa usal 7.7 - 58.5 Not Available [facility] ([facility]) [address] [place], [address], 09/01/2024 22:09:16 08/31/19 25 08/31/2024 LH+FS H+EST ROGEN FSH 1.2 mIU/m L Adult Femal e Range Folli cular phase 3.5 - 12.5 Ovula tion phase 4.7 - 21.5 Lutea l phase 1.7 - 7.7 Postm enopa usal 25.8 - 134.8 Not Available [facility] ([facility]) [address] [place], [address], 09/01/2024 22:09:16 08/31/1909/01/2024 LH+FS H+EST ROGEN estrogens, total 704 pg/mL normal Prepu yessica l < 40 Femal e Cycle : 1-10 Days 16 - 328 11-20 Days 34 - 501 21-30 Days 48 - 350 Post- Menop ausal 40 - 244 Not Available [facility] ([facility]) [address] [place], [address], 09/01/2024 22:09:16 08/31/1908/31/2024 CBC WITH DIFFE RENTI AL/PL ATELE T WBC 10.2 x10e3 /uL 3.4-10 .8 normal Not Available [facility] ([facility]) [address] [place], [address], 09/01/2024 22:09:17 08/31/19 25 08/31/2024 CBC WITH DIFFE RENTI AL/PL ATELE T RBC 4.49 x10e6 /uL 3.77-5 .28 normal Not Available [facility] ([facility]) [address] [place], [address], 09/01/2024 22:09:17 08/31/1908/31/2024 CBC WITH DIFFE RENTI AL/PL ATELE T hemoglobin 12.6 g/dL 11.1-1 5.9 normal Not Available [facility] ([facility]) [address] [place], [address], 09/01/2024 22:09:17 08/31/1908/31/2024 CBC WITH DIFFE RENTI AL/PL ATELE T hematocrit 40.4 % 34.0-4 6.6 normal Not Available [facility] ([facility]) [address] [place], [address], 09/01/2024 22:09:17 08/31/19 25 08/31/2024 CBC WITH DIFFE RENTI AL/PL ATELE T MCV 90 fL 79-97 normal Not Available [facility] ([facility]) [address] [place], [address], 09/01/2024 22:09:17 08/31/19 25 08/31/2024 CBC WITH DIFFE RENTI AL/PL ATELE T MCH 28.1 pg 26.6-3 3.0 normal Not Available [facility] ([facility]) [address] [facility], [place], [address], 09/01/2024 22:09:17 08/31/1908/31/2024 CBC WITH DIFFE RENTI AL/PL ATELE T MCHC 31.2 g/dL 31.5-3 5.7 below low normal Not Available [facility] ([facility]) [address] [facility], [place], [address], 09/01/2024 22:09:17 08/31/19 25 08/31/2024 CBC WITH DIFFE RENTI AL/PL ATELE T RDW 13.5 % 11.7-1 5.4 Not Available [facility] ([facility]) [address] [facility], [place], [address], 09/01/2024 22:09:17 08/31/1908/31/2024 CBC WITH DIFFE RENTI AL/PL ATELE T platelets 325 x10e3 /uL 150-45 0 normal Not Available [facility] ([facility]) [address] [place], [address], 09/01/2024 22:09:17 08/31/1908/31/2024 CBC WITH DIFFE RENTI AL/PL ATELE T neutrophils 61 % not estab. normal Not Available [facility] ([facility]) [address] [place], [address], 09/01/2024 22:09:17 08/31/1908/31/2024 CBC WITH DIFFE RENTI AL/PL ATELE T lymphs 28 % not estab. normal Not Available [facility] ([facility]) [address] [place], [address], 09/01/2024 22:09:17 08/31/19 25 08/31/2024 CBC WITH DIFFE RENTI AL/PL ATELE T monocytes 8 % not estab. normal Not Available [facility] ([facility]) [address] [place], [address], 09/01/2024 22:09:17 08/31/19 25 08/31/2024 CBC WITH DIFFE RENTI AL/PL ATELE T eos 2 % not estab. normal Not Available [facility] ([facility]) [address] [place], [address], 09/01/2024 22:09:17 08/31/19 25 08/31/2024 CBC WITH DIFFE RENTI AL/PL ATELE T basos 1 % not estab. normal Not Available [facility] ([facility]) [address] [place], [address], 09/01/2024 22:09:17 08/31/19 25 08/31/2024 CBC WITH DIFFE RENTI AL/PL ATELE T immature cells BIOMETRICS HEAD Not Available [facility] ([facility]) [address] [place], [address], 09/01/2024 22:09:17 08/31/19 25 08/31/2024 CBC WITH DIFFE RENTI AL/PL ATELE T neutrophils (absolute) 6.2 x10e3 /uL 1.4-7. 0 normal Not Available [facility] ([facility]) [address] [place], [address], 09/01/2024 22:09:17 08/31/19 25 08/31/2024 CBC WITH DIFFE RENTI AL/PL ATELE T lymphs (absolute) 2.8 x10e3 /uL 0.7-3. 1 normal Not Available [facility] ([facility]) [address] [place], [address], 09/01/2024 22:09:17 08/31/19 25 08/31/2024 CBC WITH DIFFE RENTI AL/PL ATELE T monocytes(ab solute) 0.8 x10e3 /uL 0.1-0. 9 normal Not Available [facility] ([facility]) [address] [facility], [place], [address], 09/01/2024 22:09:17 08/31/1908/31/2024 CBC WITH DIFFE RENTI AL/PL ATELE T eos (absolute) 0.2 x10e3 /uL 0.0-0. 4 normal Not Available [facility] ([facility]) [address] [place], [address], 09/01/2024 22:09:17 08/31/19 25 08/31/2024 CBC WITH DIFFE RENTI AL/PL ATELE T baso (absolute) 0.1 x10e3 /uL 0.0-0. 2 normal Not Available [facility] ([facility]) [address] [place], [address], 09/01/2024 22:09:17 08/31/1908/31/2024 CBC WITH DIFFE RENTI AL/PL ATELE T immature granulocytes 0 % not estab. Not Available [facility] ([facility]) [address] [place], [address], 09/01/2024 22:09:17 08/31/1908/31/2024 CBC WITH DIFFE RENTI AL/PL ATELE T immature grans (abs) 0.0 x10e3 /uL 0.0-0. 1 Not Available [facility] ([facility]) [address] [place], [address], 09/01/2024 22:09:17 08/31/19 25 08/31/2024 CBC WITH DIFFE RENTI AL/PL ATELE T NRBC BIOMETRICS HEAD Not Available [facility] ([facility]) [address] [place], [address], 09/01/2024 22:09:17 08/31/19 25 08/31/2024 CBC WITH DIFFE [address]/SINTIA Love hematology comments: BIOMETRICS HEAD Not Available [facility] ([facility]) [address] [facility], [place], [address], 09/01/2024 22:09:17 08/31/19 25 08/31/2024 IRON AND TIBC iron bind.cap.(TI BC) 309 ug/dL 250-45 0 normal Not Available [facility] ([facility]) [address] [place], [address], 09/01/2024 22:09:18 08/31/19 25 08/31/2024 IRON AND TIBC UIBC 226 ug/dL 131-42 5 normal Not Available [facility] ([facility]) [address] [place], [address], 09/01/2024 22:09:18 08/31/19 25 08/31/2024 IRON AND TIBC iron 83 ug/dL 27-159 normal Not Available [facility] ([facility]) [address] [place], [address], 09/01/2024 22:09:18 08/31/19 25 08/31/2024 IRON AND TIBC iron saturation 27 % 15-55 normal Not Available [facility] ([facility]) [address] [place], [address], 09/01/2024 22:09:18 08/31/19 25 08/31/2024 CHRIS TIN ferritin 54 NG/mL 15-150 normal Not Available [facility] ([facility]) [address] [place], [address], 09/01/2024 22:09:18 07/06/19 25 07/03/2024 elect romyo gram + nerve condu ction study No observ ation record ed. [email or web address] Garza [facility] [address] [place], [place], [address], 07/06/2024 09:03:20 09/04/19 25 US, abdom en, compl ete No observ ation record ed. [email or web address] Not Available 2024 15:51:14 Result Notes None recorded. Problems Name Problem SNOMED Code Status Onset Date Resolution Date Notes Provider Name and Address Organization Details Recorded Time Fibromyalgia 258558670 Active 2024 Yaahira Pandey PA-C [address], [place], [address], [place] - [facility] 11:12:18 Obsessive-comp ulsive disorder 170732302 Active 2024 Yahaira Pandey PA-C [address], [place], [address], [place] - [facility] 5 11:12:28 Bipolar disorder 88670643 Active 2024 Yahaira Pandey PA-C [address], [place], [address], [place] [facility] 5 11:12:36 Migraine 92026852 Active 2024 Yahaira Pandey PA-C [address], [place], [address], [place] [facility] 5 11:12:44 Iron deficiency 66388424 Active 2024 Yahaira Pandey PA-C [address], [place], [address], [place] - [facility] 5 09:36:47 Problem Notes None recorded. Procedures Surgical History Date Name Laterality Status Provider Name and Address Organization Details Recorded Time 11/17/19 25 Hysterectomy completed Zonia Valadez [place] - [facility] 07/05/2024 10:21:49 12/10/19 24 Hysterectomy completed Zonia Valadez [place] [facility] 06/26/2024 10:42:30 11/17/19 24 Adnexal surgery completed Zonia Valadez [place] [facility] 07/05/2024 10:21:49 04/18/19 04 ENT Surgery completed Zonia Valadez [place] [facility] 07/05/2024 10:21:49 Wrist arthroscopy/surge ry completed Zonia Allyson [place] - [facility] 06/26/2024 10:41:14 Elbow arthroscopy/surge ry completed Zonia Allyson [place] [facility] 06/26/2024 10:41:27 Ankle arthroscopy/surge ry completed Zonia Allyson [place] [facility] 06/26/2024 10:41:34 tonsillectomy completed Zonia Al[place]son [place] [facility] 06/26/2024 10:41:45 adenoid excision completed Zonia Allyson [place] [facility] 06/26/2024 10:41:59 Imaging Results None [...] No t Available Vitals Date Recorded Body weight Body temperature Heart rate Oxygen saturation Oxygen saturation in Arterial blood by Pulse oximetry Respiratory rate Body mass index (BMI) Body height Systolic blood pressure Diastolic blood pressure Provider Name and Address Organization Details Last Updated DateTime 5 860191. 19 g 97.6 [degF] 90 /min 98 % 98 % 18 /min 38.1 kg/m2 172.72 cm 122 mm[Hg] 80 mm[Hg] Zonia Girmaleman [place] - [facility] 5 10:35:53 Date Recorded Body height Body temperature Heart rate Oxygen saturation Oxygen saturation in Arterial blood by Pulse oximetry Respiratory rate Systolic blood pressure Diastolic blood pressure Provider Name and Address Organization Details Last Updated DateTime 5 172.72 cm 97.8 [degF] 82 /min 98 % 98 % 18 /min 118 mm[Hg] 76 mm[Hg] Zonia Nathanman [place] - [facility] 5 10:21:15 Date Recorded Body height Body mass index (BMI) Body weight Body temperature Heart rate Oxygen saturation Oxygen saturation in Arterial blood by Pulse oximetry Respiratory rate Systolic blood pressure Diastolic blood pressure Provider Name and Address Organization Details Last Updated DateTime 5 172.72 cm 37.9 kg/m2 117427. 9 g 98.1 [degF] 94 /min 99 % 99 % 18 /min 122 mm[Hg] 80 mm[Hg] Zonia Nathanman [place] - [facility] 5 14:46:43 Date Recorded Body height Body mass index (BMI) Body weight Body temperature Heart rate Oxygen saturation Oxygen saturation in Arterial blood by Pulse oximetry Respiratory rate Systolic blood pressure Diastolic blood pressure Provider Name and Address Organization Details Last Updated DateTime 5 172.72 cm 36.9 kg/m2 965577. 15 g 98.2 [degF] 107 /min 99 % 99 % 18 /min 118 mm[Hg] 78 mm[Hg] Zonia Girmaleting [place] - [facility] 5 09:43:51 Date Recorded Body height Body mass index (BMI) Body weight Body temperature Heart rate Oxygen saturation Oxygen saturation in Arterial blood by Pulse oximetry Respiratory rate Systolic blood pressure Diastolic blood pressure Provider Name and Address Organization Details Last Updated DateTime 5 172.72 cm 35.8 kg/m2 340049. 61 g 98.2 [degF] 95 /min 99 % 99 % 18 /min 118 mm[Hg] 76 mm[Hg] Zonia Fogleman [place] - [facility] 13:06:37 Social History Question [...] Or The Highest Degree You Have Received? [id number] Information not available 07/05/2024 What Was The [...] anxious, or unable to sleep at night)? [id number] Information not available 07/05/2024 Family History Relationship [...] Joint, or Bone Problems Y Obesity Y Vision or Eye Problems Y Endometriosis Y Arthritis Y Ovarian Cyst Y Fibromyalgia [...] SNOMED-CT Code Diagnosis ICD10 Code Diagnosis Note [id number] Yahaira Pandey PA-C [address] [address] 06/26/2024 10:21:46 06/26/2024 11:49:56 Carpal tunnel syndrome of left wrist 7478623916 13492 G56.02 [id number] Yahaira Pandey PA-C [address] [address] 07/05/2024 10:06:00 07/05/2024 10:51:48 Migraine 24677316 G43.880 [id number] Yahaira Pandey PA-C [address] [address] 07/23/2024 14:30:08 07/23/2024 16:24:57 Paresthesia 01615319 R20.2 Migraine 93134801 G43.90 9 [id number] Yahaira Pandey PA-C [address] [address] 08/30/2024 09:35:23 08/30/2024 10:23:14 Iron deficiency 40706202 E61.1 Body mass index 30+ - obesity 086308966 Z68.36 Obesity 280875810 E66.9 Loss of hair 955441707 L 65.9 Abdominal discomfort 433 87930 R10.9 [id number] Yahaira Pandey PA-C [address] [address] 09/21/2024 13:01:04 09/21/2024 13:19:42 Pain of right knee joint 7753914296 68555 M25.561 Pain of left wrist 70322 71539 70414 M25.532 Health Concerns Section Related Observation LastModified by Organization Detai ls LastModified Time None Recorded Concern Status LastModified by Organization Details LastModified Time None Recorded Advance Directives Directive N: Payers Insurance Date Sequence Insurance Name Policy Number Policy Gaxiola Covered Member ID Gaxiola Member ID Guarantor Name 09/19/2024 1 [facility] (MEDICARE REPLACEMENT/A DVANTAGE - PPO) ALEXIADSNP Pravin Haynes [id number] Pravin Haynes Notes Date Note Type Note Provider Name and Address Organization Details Recorded Time 06/26/2024 text/html 28 yo F presents to [facility] care and left hand pain that has been occurring for years. States the hand pain has worsened in the past few months. States gripping and moving hand is painful. States she notices the tingling more when she moves it for extended period. States she had plates and screws after having multiple fractures in the wrist in 2018. Suspected tendonitis in 2020 and thus removed plates and screws in 2020. 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 She is left-handed and primarily uses that hand. States she has various wrist braces that are not given relief anymore. Aleve is her medication of choice that she only uses when its bad around once a week. Reports not driving with her left hand due to the pain and need to shake it. She sees outside psychology for her psychological needs. Positive PHQ9 score of 5 today. Denies depression. Has a history of Fibromyalgia which is controlled through a pain clinic. They prescribe her tizanidine, Naltrexone and Gabapentin. Has a history of OCD and Bipolar disorder. [facility] via telehealth follows these diagnoses. They prescribe her Fluoxetine and [place]. States she sees counseling via telehealth about once week. Has history of Vestibular Migraines. Previous PCP had been prescribing Rizatripatn for these. States she recently had a [facility] in [place] do a dull psychological evaluation in which she will receive the results in a month. Yahaira Pandey PA-C [facility] [address], [place], [address], [facility] - [facility] 06/26/2024 12:02:51 07/05/2024 text/html 28 yo female wit h migraine flare for the past 10 days. She has been staying in a dark room, in bed. She had to take rizatriptan 1-2 x per day. She usually takes once per week. This happens usually 3 times a year due to weather/seasonal change.She has never had anyone discuss daily medication for prevention. Although she has tried and failed cymbalta for fibromyalgia. Yahaira Pandey PA-C [address], [place], [address], [facility] - [facility] 07/05/2024 10:44:45 07/23/2024 text/html 06/26/24: 28 yo F presents to [facility] care and left hand pain that has been occurring for years. States the hand pain has worsened in the past few months. States gripping and moving hand is painful. States she notices the tingling more when she moves it for extended period. States she had plates and screws after having multiple fractures in the wrist in 2018. Suspected tendonitis in 2020 and thus removed plates and screws in 2020. 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 She is left-handed and primarily uses that hand. States she has various wrist braces that are not given relief anymore. Aleve is her medication of choice that she only uses when its bad around once a week. Reports not driving with her left hand due to the pain and need to shake it. She sees outside psychology for her psychological needs. Positive PHQ9 score of 5 today. Denies depression. Has a history of Fibromyalgia which is controlled through a pain clinic. They prescribe her tizanidine, Naltrexone and Gabapentin. Has a history of OCD and Bipolar disorder. [facility] follows these diagnoses. They prescribe her Fluoxetine and [place]. States she sees counseling via telehealth about once week. Has history of Vestibular Migraines. Previous PCP had been prescribing Rizatripatn for these. 07/23/24: Patient returns for follow-up. She had EMG nerve conduction study on the left upper extremity. This was essentially normal. Given the fact that she has had previous trauma to the wrist I suspect it is arthritis related to injury. Will check labs for full evaluation.She is doing very well with qulipta and ubrelvy. Her migraines have gone from multiple times a day to twice a week. Yahaira Pandey PA-C [address], [place], [address], [facility] - [facility] 07/23/2024 15:33:06 08/30/2024 text/html Pt is a 28 yo fe male with hx of iron deficiency. We are rechecking labs today.She is concerned about hair loss. She wants her hormones checked. SHe has 1 ovary remaining.She also has abdominal discomfort since having her hysterectomy 11/2023.Also has lesions on the R shoulder, posterior aspect. Yahaira Pandey PA-C [address], [place], [address], [facility] - [facility] 08/30/2024 10:21:30 09/21/2024 text/html Pt is a 28 yo [...] syndrome. Yahaira Pandey PA-C [address], [place], [address], [facility] - [facility] 09/21/2024 13:22:52 OBGyn Episode No OBEpisode recorded.
== END ==
LOC: SL 07:56
PROVIDERS: PCP Specialist; Visit Provider Specialist
DX: G47.33 Obstructive sleep apnea (adult) (pediatric) (principal); G43.909 Migraine, unspecified, not intractable, without status migrainosus; G47.36 Sleep related hypoventilation in conditions classified elsewhere; R06.83 Snoring
CPT/HCPCS: G0399

== ENCOUNTER 2024-10-16 09:50 | Outpatient (CLI) | payer MEDICARE, MEDICAID, SELFPAY ==
--- OUTSIDE RECORDS SUMMARY | 2024-10-16 09:54 | XMS_ITS | Clinical Summary ---
Author Organization [facility] Address [address] [place] [address] Care Team Providers Care Paper Gluing Operator Name Role Phone Christine Ladd PA-C Primary [...] of Treatment Not on file Care Teams Paper Gluing Operator Relationship Specialty Start Date End Date Christine Ladd PA-C [address] [place] [address] PCP - General 07/13/21
--- OUTSIDE RECORDS SUMMARY | 2024-10-16 09:54 | XMS_ITS | Continuity of Care Document ---
Author Organization [facility], [facility] Address [address] [place] [address] Assessment No assessment recorded. Plan of Treatment Reminders Order Date Submit Date Provider Last Modified By Organization Details Last Modified Time Details Appointments None recorded. Lab None recorded. Referral physical therapist referral 2024 025 [facility], [address], [place], [address], 5 10:43:27 physical therapist referral 2024 025 [facility], [address], [place], [address], 5 10:43:27 Procedures None recorded. Surgeries None recorded. Imaging XR, knee, 3 view 2024 025 KERI Not available 16:27:26 XR, wrist, 3 or more view 2024 025 [facility], [address] , [place], [address], 5 16:27:49 Medication Orders None recorded. Patient TargetsNo targets [...] compl ete No observ ation record ed. jeferson Not Available 2024 15:51:14 10/06/19 25 10/04/2024 XR, knee, 3 view No observ ation record ed. [email or web address] Not Available 2024 10:10:55 10/06/19 25 10/04/2024 XR, wrist , 3 or more view No observ ation record ed. [email or web address] Zain [facility] [address], [place], [address], 10/08/2024 10:10:55 Result Notes None recorded. Problems Name Problem SNOMED Code Status Onset Date Resolution Date Notes Provider Name and Address Organization Details Recorded Time Fibromyalgia 667771631 Active 2024 Yahaira Pandey PA-C [address], [place], [address], [place] - [facility] 5 11:12:18 Obsessive-comp ulsive disorder 216280779 Active 2024 Yahaira Pandey PA-C [address], [place], [address], [place] - [facility] 5 11:12:28 Bipolar disorder 20530355 Active 2024 Yahaira Pandey PA-C [address], [place], [address], [place] - [facility] 5 11:12:36 Migraine 23684358 Active 2024 Yahaira Pandey PA-C [address], [place], [address], [place] - [facility] 5 11:12:44 Iron deficiency 33884637 Active 2024 Yahaira Pandey PA-C [address], [place], [address], [place] - [facility] 5 09:36:47 Problem Notes None recorded. Procedures Surgical History Date Name Laterality Status Provider Name and Address Organization Details Recorded Time 11/17/19 25 Hysterectomy completed Zonai Girmaleman [place] - [facility] 07/05/2024 10:21:49 12/10/19 24 Hysterectomy completed Zonia Fogleman [place] - [facility] 06/26/2024 10:42:30 11/17/19 24 Adnexal surgery completed Zonia Girmaleman [place] - [facility] 07/05/2024 10:21:49 04/18/19 04 ENT Surgery completed Zonia Girmaleman [place] - [facility] 07/05/2024 10:21:49 Wrist arthroscopy/surge ry completed Zonia Fogleman [place] - [facility] 06/26/2024 10:41:14 Elbow arthroscopy/surge ry completed Zonia Girmaleman [place] - [facility] 06/26/2024 10:41:27 Ankle arthroscopy/surge ry completed Zonia Fogleman [place] - [facility] 06/26/2024 10:41:34 tonsillectomy completed Zonia Nathanman [place] - [facility] 06/26/2024 10:41:45 adenoid excision completed Zonia Nathanman [place] - [facility] 06/26/2024 10:41:59 Imaging Results [...] blood by Pulse oximetry Respiratory rate Systolic And Diastolic Provider Name and Address Organization Details Last Updated DateTime 5 172.72 cm 35.8 kg/m2 429371. 61 g 98.2 [degF] 95 /min 99 % 99 % 18 /min 118/76 mm[Hg] Zonia Evansting [place] - [facility] 5 13:06:37 Social History Question Answer Notes LastModified by Organizat ion Details LastModified Time Tobacco Smoking Status Never Smoker Zonia Rayobetsyting null, [place] - [facility] 06/26/2024 10:40:46 Do [...] Or The Highest Degree You Have Received? [id number] Information not available 07/05/2024 What Was The [...] anxious, or unable to sleep at night)? [id number] Information not available 07/05/2024 Family History Relationship [...] Medical History Condition Response Anxiety Disorder Y Muscle, Joint, or Bone Problems Y Obesity Y Vision or Eye Problems Y Arthritis Y Eating Disorder Y Endometriosis Y Ovarian Cyst Y Fibromyalgia Y Gynecological [...] SNOMED-CT Code Diagnosis ICD10 Code Diagnosis Note [id number] Yahaira Pandey PA-C [facility] [address] [place] [address] 08/30/2024 09:35:23 08/30/2024 10:23:14 Iron deficiency 73492648 E61.1 Body mass index 30+ - obesity 514731319 Z68.36 Obesity 603783621 E66.9 Loss of hair 245767420 L 65.9 Abdominal discomfort 433 73440 R10.9 [id number] Yahaira Pandey PA-C [facility] [address] [place] [address] 09/21/2024 13:01:04 09/21/2024 13:19:42 Pain of right knee joint 0724525837 96605 M25.561 Pain of left wrist 03355 65203 36973 M25.532 Health Concerns Section Related Observation LastModified by Organization Detai ls LastModified Time None Recorded Concern Status LastModified by Organization Details LastModified Time None Recorded Payers Encounter Date Sequence Insurance Name Policy Number Policy Gaxiola Covered Member ID Gaxiola Member ID Guarantor Name 09/21/2024 1 [facility] (MEDICARE REPLACEMENT/A DVANTAGE - PPO) [id number] Pravin Suellen Haynes [id number] Pravin Haynes Notes Date Note Type Note [...] syndrome. Yahaira Pandey PA-C [address], [place], [address], [place] - [facility] 09/21/2024 13:22:52 OBGyn Episode No OBEpisode recorded.
--- OUTSIDE RECORDS SUMMARY | 2024-10-16 09:54 | XMS_ITS | Data Portability ---
Author Organization [facility] Address [address] [place] [address] Assessment Encounter Date Assessment Date Assessment LastModified [...] [address], [address], [place], [address], 22:09:17 iron + total iron-bindin g capacity (TIBC), serum 2024 025 K[facility]I [facility], [address], [place] [address], [place], [address], 22:09:18 ferritin, serum or plasma 2024 025 KERI [facility], [address], [place] [address], [place], [address], 22:09:18 CBC w/ auto diff 2024 025 K[facility]I [facility], [address], [place] [address], [place], [address], 5 22:09:17 magnesium, serum or plasma 2024 025 KERI [facility], [address], [place] [address], [place], [address], 5 09:15:57 vitamin D, 25-hydroxy, total, serum 2024 025 KERI [facility], [address], [place], [place], [address], 5 09:15:55 CBC w/ auto diff 2024 025 KERI [facility], [address], [place] [address], [place], [address], 5 09:15:52 iron + total iron-bindin g capacity (TIBC), serum 2024 025 KEIR [facility], [address], [place] F, [place], [address], 5 09:15:54 TSH + free T4, serum 2024 025 KERI [facility], [address], [place] [address], [place], [address], 5 09:15:52 vitamin B12, serum 2024 025 KERI [facility], [address], [place] [address], [place], [address], 5 09:15:57 thiamine, QN, blood 2024 025 KERI [facility], [address], [place] [address], [place], [address], 5 09:15:56 vitamin B6 + metabolites panel, serum or plasma 2024 025 KERI [facility], [address], [place] [address], [place], [address], 5 09:15:55 BMP, serum or plasma 2024 025 K[facility]I [facility], [address], Darnell [address], [place], [address], 5 09:15:53 Referral physical therapist referral 2024 025 [facility], [address], [place], [address], 5 10:43:27 physical therapist referral 2024 025 [facility], [address], [place], [address], 5 10:43:27 Procedures None recorded. Surgeries None recorded. Imaging XR, knee, 3 view 2024 025 KERI Not available 16:27:26 XR, wrist, 3 or more view 2024 025 [facility], [address] [facility] , [place], [address], 5 16:27:49 US, abdomen, complete 2024 025 KERI Not available 13:56:50 electromyog lindsay + nerve conduction study 2024 025 [facility], [address] [facility] , [place], [address], 5 16:48:00 Medication Orders Qulipta 30 mg tablet 2024 025 [facility], [address], [place], [address], 5 15:26:09 Qulipta 30 mg tablet 2024 025 [facility], [address], [place], [address], 10:37:14 Ubrelvy 100 mg tablet 2024 025 [facility], [address], [place], [address], 10:37:14 Patient TargetsNo targets recorded. Patient Instructions Encounter Date Encounter Id Patient Instructions Last Modified By Organization Details Last Modified Time 07/05/2024 [id number] Rx and samples given of ubrelvy ehimes Not available 07/05/2024 10:44:29 08/30/2024 [id number] learning about healthy weight ehimes Not available [...] L 0.450- 4.500 normal Not Available [facility] ([facility]) [address] [place], [address], 07/27/2024 09:15:52 07/24/1907/24/2024 TSH+F REE T4 T4,free(dire ct) 0.93 NG/dL 0.82-1 .77 normal Not Available [facility] ([facility]) [address] [facility], [place], [address], 07/27/2024 09:15:52 07/24/19 25 07/24/2024 CBC WITH DIFFE RENTI AL/PL ATELE T WBC 10.9 x10e3 /uL 3.4-10 .8 above high normal Not Available [facility] ([facility]) [address] [place], [address], 07/27/2024 09:15:52 07/24/19 25 07/24/2024 CBC WITH DIFFE RENTI AL/PL ATELE T RBC 4.84 x10e6 /uL 3.77-5 .28 normal Not Available [facility] ([facility]) [address] [place], [address], 07/27/2024 09:15:52 07/24/19 25 07/24/2024 CBC WITH DIFFE RENTI AL/PL ATELE T hemoglobin 13.4 g/dL 11.1-1 5.9 normal Not Available [facility] ([facility]) [address] [facility], [place], [address], 07/27/2024 09:15:52 07/24/19 25 07/24/2024 CBC WITH DIFFE RENTI AL/PL ATELE T hematocrit 42.5 % 34.0-4 6.6 normal Not Available [facility] ([facility]) [address] [place], [address], 07/27/2024 09:15:52 07/24/1907/24/2024 CBC WITH DIFFE RENTI AL/PL ATELE T MCV 88 fL 79-97 normal Not Available [facility] ([facility]) [address] [place], [address], 07/27/2024 09:15:52 07/24/19 25 07/24/2024 CBC WITH DIFFE RENTI AL/PL ATELE T MCH 27.7 pg 26.6-3 3.0 normal Not Available [facility] ([facility]) [address] [place], [address], 07/27/2024 09:15:52 07/24/19 25 07/24/2024 CBC WITH DIFFE RENTI AL/PL ATELE T MCHC 31.5 g/dL 31.5-3 5.7 normal Not Available [facility] ([facility]) [address] [facility], [place], [address], 07/27/2024 09:15:52 07/24/19 25 07/24/2024 CBC WITH DIFFE RENTI AL/PL ATELE T RDW 12.6 % 11.7-1 5.4 Not Available [facility] ([facility]) [address] [facility], [place], [address], 07/27/2024 09:15:52 07/24/19 25 07/24/2024 CBC WITH DIFFE RENTI AL/PL ATELE T platelets 386 x10e3 /uL 150-45 0 normal Not Available [facility] ([facility]) [address] [facility], [place], [address], 07/27/2024 09:15:52 07/24/19 25 07/24/2024 CBC WITH DIFFE RENTI AL/PL ATELE T neutrophils 66 % not estab. normal Not Available [facility] ([facility]) [address] [facility], [place], [address], 07/27/2024 09:15:52 07/24/19 25 07/24/2024 CBC WITH DIFFE RENTI AL/PL ATELE T lymphs 26 % not estab. normal Not Available [facility] ([facility]) [address] [facility], [place], [address], 07/27/2024 09:15:52 07/24/19 25 07/24/2024 CBC WITH DIFFE RENTI AL/PL ATELE T monocytes 5 % not estab. normal Not Available [facility] ([facility]) [address] [facility], [place], [address], 07/27/2024 09:15:52 07/24/19 25 07/24/2024 CBC WITH DIFFE RENTI AL/PL ATELE T eos 2 % not estab. normal Not Available [facility] ([facility]) [address] [place], [address], 07/27/2024 09:15:52 07/24/19 25 07/24/2024 CBC WITH DIFFE RENTI AL/PL ATELE T basos 1 % not estab. normal Not Available [facility] ([facility]) [address] [facility], [place], [address], 07/27/2024 09:15:52 07/24/19 25 07/24/2024 CBC WITH DIFFE RENTI AL/PL ATELE T immature cells CAN BANDER OPERATOR Not Available [facility] ([facility]) [address] [place], [address], 07/27/2024 09:15:52 07/24/19 25 07/24/2024 CBC WITH DIFFE RENTI AL/PL ATELE T neutrophils (absolute) 7.2 x10e3 /uL 1.4-7. 0 above high normal Not Available [facility] ([facility]) [address] [place], [address], 07/27/2024 09:15:52 07/24/19 25 07/24/2024 CBC WITH DIFFE RENTI AL/PL ATELE T lymphs (absolute) 2.8 x10e3 /uL 0.7-3. 1 normal Not Available [facility] ([facility]) [address] [place], [address], 07/27/2024 09:15:52 07/24/19 25 07/24/2024 CBC WITH DIFFE RENTI AL/PL ATELE T monocytes(ab solute) 0.6 x10e3 /uL 0.1-0. 9 normal Not Available [facility] ([facility]) [address] [place], [address], 07/27/2024 09:15:52 07/24/19 25 07/24/2024 CBC WITH DIFFE RENTI AL/PL ATELE T eos (absolute) 0.2 x10e3 /uL 0.0-0. 4 normal Not Available [facility] ([facility]) [address] [facility], [place], [address], 07/27/2024 09:15:52 07/24/19 25 07/24/2024 CBC WITH DIFFE RENTI AL/PL ATELE T baso (absolute) 0.1 x10e3 /uL 0.0-0. 2 normal Not Available [facility] ([facility]) [address] [facility], [place], [address], 07/27/2024 09:15:52 07/24/19 25 07/24/2024 CBC WITH DIFFE RENTI AL/PL ATELE T immature granulocytes 0 % not estab. Not Available [facility] ([facility]) [address] [facility], [place], [address], 07/27/2024 09:15:52 07/24/19 25 07/24/2024 CBC WITH DIFFE RENTI AL/PL ATELE T immature grans (abs) 0.0 x10e3 /uL 0.0-0. 1 Not Available [facility] ([facility]) [address] [facility], [place], [address], 07/27/2024 09:15:52 07/24/1907/24/2024 CBC WITH DIFFE RENTI AL/PL ATELE T NRBC CAN BANDER OPERATOR Not Available [facility] ([facility]) [address] [facility], [place], [address], 07/27/2024 09:15:52 07/24/19 25 07/24/2024 CBC WITH DIFFE RENTI AL/PL ATELE T hematology comments: CAN BANDER OPERATOR Not Available [facility] ([facility]) [address] [facility], [place], [address], 07/27/2024 09:15:52 07/24/19 25 07/24/2024 BASIC METAB OLIC PANEL (8) glucose 77 mg/dL 70-99 normal Not Available [facility] ([facility]) [address] [place], [address], 07/27/2024 09:15:53 07/24/19 25 07/24/2024 BASIC METAB OLIC PANEL (8) BUN 11 mg/dL 6-20 normal Not Available [facility] ([facility]) [address] [place], [address], 07/27/2024 09:15:53 07/24/19 25 07/24/2024 BASIC METAB OLIC PANEL (8) creatinine 0.98 mg/dL 0.57-1 .00 normal Not Available [facility] ([facility]) [address] [place], [address], 07/27/2024 09:15:53 07/24/19 25 07/24/2024 BASIC METAB OLIC PANEL (8) eGFR 81 mL/mi n/1.7 3 >59 normal Not Available [facility] ([facility]) [address] [place], [address], 07/27/2024 09:15:53 07/24/19 25 07/24/2024 BASIC METAB OLIC PANEL (8) BUN/creatini ne ratio 11 9-23 normal Not Available [facility] ([facility]) [address] [place], [address], 07/27/2024 09:15:53 07/24/19 25 07/24/2024 BASIC METAB OLIC PANEL (8) sodium 138 mmol/ L 134-14 4 normal Not Available [facility] ([facility]) [address] [place], [address], 07/27/2024 09:15:53 07/24/19 25 07/24/2024 BASIC METAB OLIC PANEL (8) potassium 4.8 mmol/ L 3.5-5. 2 normal Not Available [facility] ([facility]) [address] [place], [address], 07/27/2024 09:15:53 07/24/19 25 07/24/2024 BASIC METAB OLIC PANEL (8) chloride 104 mmol/ L 96-106 normal Not Available [facility] ([facility]) [address] [place], [address], 07/27/2024 09:15:53 07/24/19 25 07/24/2024 BASIC METAB OLIC PANEL (8) carbon dioxide, total 21 mmol/ L 20-29 normal Not Available [facility] ([facility]) [address] [place], [address], 07/27/2024 09:15:53 07/24/19 25 07/24/2024 BASIC METAB OLIC PANEL (8) calcium 9.1 mg/dL 8.7-10 .2 normal Not Available [facility] ([facility]) [address] [place], [address], 07/27/2024 09:15:53 07/24/19 25 07/24/2024 IRON AND TIBC iron bind.cap.(TI BC) 343 ug/dL 250-45 0 normal Not Available [facility] ([facility]) [address] [place], [address], 07/27/2024 09:15:54 07/24/19 25 07/24/2024 IRON AND TIBC UIBC 311 ug/dL 131-42 5 normal Not Available [facility] ([facility]) [address] [place], [address], 07/27/2024 09:15:54 07/24/19 25 07/24/2024 IRON AND TIBC iron 32 ug/dL 27-159 normal Not Available [facility] ([facility]) [address] [place], [address], 07/27/2024 09:15:54 07/24/19 25 07/24/2024 IRON AND TIBC iron saturation 9 % 15-55 alert low Not Available [facility] ([facility]) [address] [facility], [place], [address], 07/27/2024 09:15:54 07/24/19 25 07/25/2024 VITAM IN B6, PLASM A vitamin B6 10.9 ug/L 3.4-65 .2 normal Defic iency : <3.4 Rachana nal: 3.4 - 5.1 Adequ ate: >5.1 Not Available [facility] ([facility]) [address] [facility], [place], [address], 07/27/2024 09:15:55 07/24/19 25 07/24/2024 VITAM IN [...] Medic ine). 2010. Dieta ry refer ence intjose raul es for calci um and D. Kelsey rashid DC: [facility] . 2. Jammie pelaez MF, Leena friedman [place], Parish off-F errar i ROJO, et al. Evalu ation , treat ment, and preve ntion of vitam in D defic iency : an Endoc rine Socie ty clini sully pract ice guide line. JCEM. 2010; 96(7) :1911 -30. Not Available [facility] ([facility]) [address] [facility], [place], [address], 07/27/2024 09:15:55 07/24/1907/27/2024 VITAM IN B1 (THIA MINE) , BLOOD vit. B1, whole blood 162.9 nmol/ L 66.5-2 00.0 Not Available [facility] ([facility]) [address] [place], [address], 07/27/2024 09:15:56 07/24/19 25 07/24/2024 VITAM IN B12 vitamin B12 414 pg/mL 232-12 45 normal Not Available [facility] ([facility]) [address] [place], [address], 07/27/2024 09:15:57 07/24/19 25 07/24/2024 MAGNE SIUM magnesium 2.1 mg/dL 1.6-2. 3 normal Not Available [facility] ([facility]) [address] [place], [address], 07/27/2024 09:15:57 08/31/19 25 08/31/2024 LH+FS H+EST ROGEN LH 3.4 mIU/m L normal Adult Femal e Range Folli cular phase 2.4 - 12.6 Ovula tion phase 14.0 - 95.6 Lutea l phase 1.0 - 11.4 Postm enopa usal 7.7 - 58.5 Not Available [facility] ([facility]) [address] [place], [address], 09/01/2024 22:09:16 08/31/19 25 08/31/2024 LH+FS H+EST ROGEN FSH 1.2 mIU/m L Adult Femal e Range Folli cular phase 3.5 - 12.5 Ovula tion phase 4.7 - 21.5 Lutea l phase 1.7 - 7.7 Postm enopa usal 25.8 - 134.8 Not Available [facility] ([facility]) [address] [place], [address], 09/01/2024 22:09:16 08/31/19 25 09/01/2024 LH+FS H+EST ROGEN estrogens, total 704 pg/mL normal Prepu yessica l < 40 Femal e Cycle : 1-10 Days 16 - 328 11-20 Days 34 - 501 21-30 Days 48 - 350 Post- Menop ausal 40 - 244 Not Available [facility] ([facility]) [address] [place], [address], 09/01/2024 22:09:16 08/31/19 25 08/31/2024 CBC WITH DIFFE RENTI AL/PL ATELE T WBC 10.2 x10e3 /uL 3.4-10 .8 normal Not Available [facility] ([facility]) [address] [place], [address], 09/01/2024 22:09:17 08/31/19 25 08/31/2024 CBC WITH DIFFE RENTI AL/PL ATELE T RBC 4.49 x10e6 /uL 3.77-5 .28 normal Not Available [facility] ([facility]) [address] [place], [address], 09/01/2024 22:09:17 08/31/19 25 08/31/2024 CBC WITH DIFFE RENTI AL/PL ATELE T hemoglobin 12.6 g/dL 11.1-1 5.9 normal Not Available [facility] ([facility]) [address] [place], [address], 09/01/2024 22:09:17 08/31/1908/31/2024 CBC WITH DIFFE RENTI AL/PL ATELE T hematocrit 40.4 % 34.0-4 6.6 normal Not Available [facility] ([facility]) [address] [place], [address], 09/01/2024 22:09:17 08/31/19 25 08/31/2024 CBC WITH DIFFE RENTI AL/PL ATELE T MCV 90 fL 79-97 normal Not Available [facility] ([facility]) [address] [place], [address], 09/01/2024 22:09:17 08/31/19 25 08/31/2024 CBC WITH DIFFE RENTI AL/PL ATELE T MCH 28.1 pg 26.6-3 3.0 normal Not Available [facility] ([facility]) [address] [place], [address], 09/01/2024 22:09:17 08/31/1908/31/2024 CBC WITH DIFFE RENTI AL/PL ATELE T MCHC 31.2 g/dL 31.5-3 5.7 below low normal Not Available [facility] ([facility]) [address] [place], [address], 09/01/2024 22:09:17 08/31/19 25 08/31/2024 CBC WITH DIFFE RENTI AL/PL ATELE T RDW 13.5 % 11.7-1 5.4 Not Available [facility] ([facility]) [address] [facility], [place], [address], 09/01/2024 22:09:17 08/31/1908/31/2024 CBC WITH DIFFE RENTI AL/PL ATELE T platelets 325 x10e3 /uL 150-45 0 normal Not Available [facility] ([facility]) [address] [place], [address], 09/01/2024 22:09:17 08/31/1908/31/2024 CBC WITH DIFFE RENTI AL/PL ATELE T neutrophils 61 % not estab. normal Not Available [facility] ([facility]) [address] [place], [address], 09/01/2024 22:09:17 08/31/1908/31/2024 CBC WITH DIFFE RENTI AL/PL ATELE T lymphs 28 % not estab. normal Not Available [facility] ([facility]) [address] [place], [address], 09/01/2024 22:09:17 08/31/19 25 08/31/2024 CBC WITH DIFFE RENTI AL/PL ATELE T monocytes 8 % not estab. normal Not Available [facility] ([facility]) [address] [facility], [place], [address], 09/01/2024 22:09:17 08/31/1908/31/2024 CBC WITH DIFFE RENTI AL/PL ATELE T eos 2 % not estab. normal Not Available [facility] ([facility]) [address] [place], [address], 09/01/2024 22:09:17 08/31/19 25 08/31/2024 CBC WITH DIFFE RENTI AL/PL ATELE T basos 1 % not estab. normal Not Available [facility] ([facility]) [address] [place], [address], 09/01/2024 22:09:17 08/31/19 25 08/31/2024 CBC WITH DIFFE RENTI AL/PL ATELE T immature cells CAN BANDER OPERATOR Not Available [facility] ([facility]) [address] [place], [address], 09/01/2024 22:09:17 08/31/19 25 08/31/2024 CBC WITH DIFFE RENTI AL/PL ATELE T neutrophils (absolute) 6.2 x10e3 /uL 1.4-7. 0 normal Not Available [facility] ([facility]) [address] [place], [address], 09/01/2024 22:09:17 08/31/19 25 08/31/2024 CBC WITH DIFFE RENTI AL/PL ATELE T lymphs (absolute) 2.8 x10e3 /uL 0.7-3. 1 normal Not Available [facility] ([facility]) [address] [place], [address], 09/01/2024 22:09:17 08/31/19 25 08/31/2024 CBC WITH DIFFE RENTI AL/PL ATELE T monocytes(ab solute) 0.8 x10e3 /uL 0.1-0. 9 normal Not Available [facility] ([facility]) [address] [facility], [place], [address], 09/01/2024 22:09:17 08/31/1908/31/2024 CBC WITH DIFFE RENTI AL/PL ATELE T eos (absolute) 0.2 x10e3 /uL 0.0-0. 4 normal Not Available [facility] ([facility]) [address] [place], [address], 09/01/2024 22:09:17 08/31/1908/31/2024 CBC WITH DIFFE RENTI AL/PL ATELE T baso (absolute) 0.1 x10e3 /uL 0.0-0. 2 normal Not Available [facility] ([facility]) [address] [facility], [place], [address], 09/01/2024 22:09:17 08/31/1908/31/2024 CBC WITH DIFFE RENTI AL/PL ATELE T immature granulocytes 0 % not estab. Not Available [facility] ([facility]) [address] [place], [address], 09/01/2024 22:09:17 08/31/1908/31/2024 CBC WITH DIFFE RENTI AL/PL ATELE T immature grans (abs) 0.0 x10e3 /uL 0.0-0. 1 Not Available [facility] ([facility]) [address] [place], [address], 09/01/2024 22:09:17 08/31/1908/31/2024 CBC WITH DIFFE RENTI AL/PL ATELE T NRBC CAN BANDER OPERATOR Not Available [facility] ([facility]) [address] [place], [address], 09/01/2024 22:09:17 08/31/19 25 08/31/2024 CBC WITH DIFFE KATHARINE AL/SINTIA Love hematology comments: CAN BANDER OPERATOR Not Available [facility] ([facility]) [address] [facility], [place], [address], 09/01/2024 22:09:17 08/31/19 25 08/31/2024 IRON AND TIBC iron bind.cap.(TI BC) 309 ug/dL 250-45 0 normal Not Available [facility] ([facility]) [address] [place], [address], 09/01/2024 22:09:18 08/31/19 25 08/31/2024 IRON AND TIBC UIBC 226 ug/dL 131-42 5 normal Not Available [facility] ([facility]) [address] [place], [address], 09/01/2024 22:09:18 08/31/19 25 08/31/2024 IRON AND TIBC iron 83 ug/dL 27-159 normal Not Available [facility] ([facility]) [address] [place], [address], 09/01/2024 22:09:18 08/31/19 25 08/31/2024 IRON AND TIBC iron saturation 27 % 15-55 normal Not Available [facility] ([facility]) [address] [place], [address], 09/01/2024 22:09:18 08/31/19 25 08/31/2024 CHRIS TIN ferritin 54 NG/mL 15-150 normal Not Available [facility] ([facility]) [address] [place], [address], 09/01/2024 22:09:18 07/06/19 25 07/03/2024 elect romyo gram + nerve condu ction study No observ ation record ed. [email or web address] Garza [facility] [address] [place], [place], [address], 07/06/2024 09:03:20 09/04/19 25 US, abdom en, compl ete No observ ation record ed. tfogleman Not Available 2024 15:51:14 10/06/19 25 10/04/2024 XR, knee, 3 view No observ ation record ed. tfogleman Not Available 2024 10:10:55 10/06/19 25 10/04/2024 XR, wrist , 3 or more view No observ ation record ed. tfogleting [facility] [address] [facility] , [place], [address], 10/08/2024 10:10:55 Result Notes None recorded. Problems Name Problem SNOMED Code Status Onset Date Resolution Date Notes Provider Name and Address Organization Details Recorded Time Fibromyalgia 573900423 Active 2024 Yahaira Pandey PA-C [address], [place], [address], [place] - [facility] 5 11:12:18 Obsessive-comp ulsive disorder 109718233 Active 2024 Yahaira Pandey PA-C [address], [place], [address], [place] - [facility] 5 11:12:28 Bipolar disorder 79209894 Active 2024 Yahaira Pandey PA-C [address], [place], [address], [place] - [facility] 5 11:12:36 Migraine 96893426 Active 2024 Yahaira Pandey PA-C [address], [place], [address], [place] - [facility] 5 11:12:44 Iron deficiency 29463134 Active 2024 Yahaira Pandey PA-C [address], [place], [address], [place] - [facility] 5 09:36:47 Problem Notes None recorded. Procedures Surgical History Date Name Laterality Status Provider Name and Address Organization Details Recorded Time 11/17/19 25 Hysterectomy completed Zonia Girmaleman [place] - [facility] 07/05/2024 10:21:49 12/10/19 24 Hysterectomy completed Zonia Girmaleman [place] - [facility] 06/26/2024 10:42:30 11/17/19 24 Adnexal surgery completed Zonia Girmaleman [place] - [facility] 07/05/2024 10:21:49 04/18/19 04 ENT Surgery completed Zonia Nathanman [place] - [facility] 07/05/2024 10:21:49 Wrist arthroscopy/surge ry completed Zonia Fogleman [place] - [facility] 06/26/2024 10:41:14 Elbow arthroscopy/surge ry completed Zonia Girmaleman [place] - [facility] 06/26/2024 10:41:27 Ankle arthroscopy/surge ry completed Zonia Girmaleman [place] - [facility] 06/26/2024 10:41:34 tonsillectomy completed [...] Body mass index (BMI) Body height Systolic And Diastolic Provider Name and Address Organization Details Last Updated DateTime 5 407727. 19 g 97.6 [degF] 90 /min 98 % 98 % 18 /min 38.1 kg/m2 172.72 cm 122/80 mm[Hg] Zonia Girmabetsyting [facility] 5 10:35:53 Date Recorded Body height Body temperature Heart rate Oxygen saturation Oxygen saturation in Arterial blood by Pulse oximetry Respiratory rate Systolic And Diastolic Provider Name and Address Organization Details Last Updated DateTime 5 172.72 cm 97.8 [degF] 82 /min 98 % 98 % 18 /min 118/76 mm[Hg] Zoniafaith Valadez [place] - [facility] 5 10:21:15 Date Recorded Body height Body mass index (BMI) Body weight Body temperature Heart rate Oxygen saturation Oxygen saturation in Arterial blood by Pulse oximetry Respiratory rate Systolic And Diastolic Provider Name and Address Organization Details Last Updated DateTime 5 172.72 cm 37.9 kg/m2 215137. 9 g 98.1 [degF] 94 /min 99 % 99 % 18 /min 122/80 mm[Hg] Zoniafaith Rayobetsyting [employer] - [facility] 5 14:46:43 Date Recorded Body height Body mass index (BMI) Body weight Body temperature Heart rate Oxygen saturation Oxygen saturation in Arterial blood by Pulse oximetry Respiratory rate Systolic And Diastolic Provider Name and Address Organization Details Last Updated DateTime 5 172.72 cm 36.9 kg/m2 912078. 15 g 98.2 [degF] 107 /min 99 % 99 % 18 /min 118/78 mm[Hg] Zonia Valadez [employer] - [facility] 5 09:43:51 Date Recorded Body height Body mass index (BMI) Body weight Body temperature Heart rate Oxygen saturation Oxygen saturation in Arterial blood by Pulse oximetry Respiratory rate Systolic And Diastolic Provider Name and Address Organization Details Last Updated DateTime 172.72 cm 35.8 kg/m2 954484. 61 g 98.2 [degF] 95 /min 99 % 99 % 18 /min 118/76 mm[Hg] Zonia Valadez [place] - [facility] 13:06:37 [...] Or The Highest Degree You Have Received? [id number] Information not available 07/05/2024 What Was The [...] anxious, or unable to sleep at night)? [id number] Information not available 07/05/2024 Family History Relationship [...] [email or web address] available 10:21:24 Sister Substance abuse [email or web address] Not available 2024 10:21:24 Medical History Condition [...] SNOMED-CT Code Diagnosis ICD10 Code Diagnosis Note [id number] Yahaira Pandey PA-C [address] [address] 06/26/2024 10:21:46 06/26/2024 11:49:56 Carpal tunnel syndrome of left wrist 7985694166 37752 G56.02 [id number] Yahaira Pandey PA-C [address] [address] 07/05/2024 10:06:00 07/05/2024 10:51:48 Migraine 51217547 G43.970 [id number] Yahaira Pandey PA-C [address] [address] 07/23/2024 14:30:08 07/23/2024 16:24:57 Paresthesia 21425852 R20.2 Migraine 56454518 G43.90 9 [id number] Yahaira Pandey PA-C [address] [address] 08/30/2024 09:35:23 08/30/2024 10:23:14 Iron deficiency 11825802 E61.1 Body mass index 30+ - obesity 176090733 Z68.36 Obesity 441524073 E66.9 Loss of hair 209325112 L 65.9 Abdominal discomfort 433 70806 R10.9 [id number] Yahaira Pandey PA-C [facility] [address] [place] [address] 09/21/2024 13:01:04 09/21/2024 13:19:42 Pain of right knee joint 5465252450 29201 M25.561 Pain of left wrist 89248 47283 67230 M25.532 Health Concerns Section Related Observation LastModified by Organization Detai ls LastModified Time None Recorded Concern Status LastModified by Organization Details LastModified Time None Recorded Advance Directives Directive N: Payers Insurance Date Sequence Insurance Name Policy Number Policy Gaxiola Covered Member ID Gaxiola Member ID Guarantor Name 10/04/2024 1 [facility] (MEDICARE REPLACEMENT/A DVANTAGE - PPO) ALEXIADSEMILY Haynes [id number] Pravin Haynes Notes Date Note Type Note Provider Name and Address Organization Details Recorded Time 06/26/2024 text/html 28 yo F presents to [facility] and left hand pain that has been [...] screws in 2020. 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 [...] these diagnoses. They prescribe her Fluoxetine and Headrick. States she sees counseling via telehealth about once week. Has history of Vestibular Migraines. Previous PCP had been prescribing Rizatripatn for these. States she recently had a [facility] in [place] do a dull psychological evaluation in which she will receive the results in a month. Yahaira Pandey PA-C [address], [place], [address], [facility] - [facility] 06/26/2024 12:02:51 07/05/2024 text/html 28 [...] fibromyalgia. Yahaira Pandey PA-C [address], [place], [address], [facility] - [facility] 07/05/2024 10:44:45 07/23/2024 text/html 06/26/24: 28 yo F presents to [facility] and left hand pain that has been [...] screws in 2020. 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 [...] these diagnoses. They prescribe her Fluoxetine and Headrick. States she sees counseling via telehealth about [...] week. Yahaira Pandey PA-C [address], [place], [address], [facility] - [facility] 07/23/2024 15:33:06 08/30/2024 text/html Pt is a 28 yo fe male with hx of iron deficiency. We are rechecking labs today.She is concerned about hair loss. She wants her hormones checked. SHe has 1 ovary remaining.She also has abdominal discomfort since having her hysterectomy 11/2023.Also has lesions on the R shoulder, posterior aspect. Yahaira Pandey PA-C [address], [place], [address], [facility] - [facility] 08/30/2024 10:21:30 09/21/2024 text/html Pt [...] syndrome. Yahaira Pandey PA-C [address], [place], [address], [facility] - [facility] 09/21/2024 13:22:52 OBGyn Episode No OBEpisode recorded.
--- OUTSIDE RECORDS SUMMARY | 2024-10-16 09:54 | XMS_ITS | Continuity of Care Document ---
Author Organization [facility], [facility] Address [address] [facility] [place] [address] Assessment No assessment recorded. Plan of Treatment Reminders Order Date Submit Date Provider Last Modified By Organization Details Last Modified Time Details Appointments None recorded. Lab hormone panel, serum or plasma 2024 025 [facility], [address], [address], [place], [address], 22:09:17 iron + total iron-keith ng capacity (TIBC), serum 2024 025 [facility], [address], [address], [place], [address], 5 22:09:18 ferritin, serum or plasma 2024 025 K[facility]I [facility], [address], [address] [address], [place], [address], 5 22:09:18 CBC w/ auto diff 2024 025 [facility], [address], [address] [address], [place], [address], 5 22:09:17 Referral None recorded. Procedures None recorded. Surgeries None recorded. Imaging US, abdomen, complete 2024 025 KERI Not available 13:56:50 Medication Orders None recorded. Patient TargetsNo targets recorded. Patient Instructions Encounter Date Encounter Id Patient Instructions Last Modified By Organization Details Last Modified Time 08/30/2024 [id number] learning about healthy weight ehimes Not available 08/30/2024 10:24:53 body mass index: care instructions ehimes Not available 08/30/2024 10:24:53 Will call with lab results ehimes Not available 08/30/2024 10:17:11 Reason for Referral None Reported. Results Created Date Observation Date Name Description Value Unit Range Abnormal Flag Note LastModifiedBy Organization Detail LastModifiedTime 09/04/19 US, abdom en, compl ete No observ ation record ed. tfogleman Not Available 2024 15:51:14 10/06/19 25 10/04/2024 XR, knee, 3 view No observ ation record ed. tfogleman Not Available 2024 10:10:55 10/06/19 25 10/04/2024 XR, wrist , 3 or more view No observ ation record ed. [email or web address] [facility] [address] , [place], [address], 10/08/2024 10:10:55 Result Notes None recorded. Problems Name Problem SNOMED Code Status Onset Date Resolution Date Notes Provider Name and Address Organization Details Recorded Time Fibromyalgia 569839959 Active 2024 Yahaira Pandey PA-C [address], [place], [address], [place] - [facility] 5 11:12:18 Obsessive-comp ulsive disorder 244605403 Active 2024 Yahaira Pandey PA-C [address], [place], [address], [place] - [facility] 5 11:12:28 Bipolar disorder 26914549 Active 2024 Yahaira Pandey PA-C [address], [place], [address], [place] - [facility] 5 11:12:36 Migraine 49091149 Active 2024 Yahaira Pandey PA-C [address], [place], [address], [place] - [facility] 5 11:12:44 Iron deficiency 85626519 Active 2024 Yahaira Pandey PA-C [address], [place], [address], [place] - [facility] 09:36:47 Problem Notes None recorded. Procedures Surgical History Date Name Laterality Status Provider Name and Address Organization Details Recorded Time 11/17/19 25 Hysterectomy completed Zonia Fogleman [place] - [facility] 07/05/2024 10:21:49 12/10/19 24 Hysterectomy completed Zonia Fogleman [place] - [facility] 06/26/2024 10:42:30 11/17/19 24 Adnexal surgery completed Zonia Fogleman [place] - [facility] 07/05/2024 10:21:49 04/18/19 04 ENT Surgery completed Zonia Girmaleman [place] - [facility] 07/05/2024 10:21:49 Wrist arthroscopy/surge ry completed Zonia Fogleman [place] - [facility] 06/26/2024 10:41:14 Elbow arthroscopy/surge ry completed Zonia Girmaleman [place] - [facility] 06/26/2024 10:41:27 Ankle arthroscopy/surge ry completed Zonia Fogleman [place] - [facility] 06/26/2024 10:41:34 tonsillectomy completed Zonia Girmaleman [place] - [facility] 06/26/2024 10:41:45 adenoid excision completed Zonia Girmaleman [place] - [facility] 06/26/2024 10:41:59 Imaging Results [...] Last Updated DateTime 172.72 cm 36.9 kg/m2 398704. 15 g 98.2 [degF] 107 /min 99 % 99 % 18 /min 118/78 mm[Hg] Zonia Valadez [place] - [facility] 09:43:51 Social History Question Answer Notes LastModified by [employer] ion Details LastModified Time Tobacco Smoking Status [...] Or The Highest Degree You Have Received? [id number] Information not available 07/05/2024 What Was The [...] anxious, or unable to sleep at night)? [id number] Information not available 07/05/2024 Family History Relationship [...] available 2024 10:21:24 Medical History Condition Response Eating Disorder Y Ovarian Cyst Y Anxiety Disorder Y Muscle, Joint, or Bone Problems Y Obesity Y Vision or Eye Problems Y Arthritis Y Endometriosis Y Fibromyalgia Y Gynecological History Statement/Question Response [...] SNOMED-CT Code Diagnosis ICD10 Code Diagnosis Note [id number] Yahaira Pandey PA-C [facility] [address] [place] [address] 08/30/2024 09:35:23 08/30/2024 10:23:14 Iron deficiency 61013254 E61.1 Body mass index 30+ - obesity 175333202 Z68.36 Obesity 497163023 E66.9 Loss of hair 737001882 L 65.9 Abdominal discomfort 433 19402 R10.9 Health Concerns Section Related Observation LastModified by Organization Detai ls LastModified Time None Recorded Concern Status LastModified by Organization Details LastModified Time None Recorded Payers Encounter Date Sequence Insurance Name Policy Number Policy Gaxiola Covered Member ID Gaxiola Member ID Guarantor Name 08/30/2024 1 [facility] (MEDICARE REPLACEMENT/A DVANTAGE - PPO) ALEXIADSEMILY Haynes [id number] Pravin Haynes Notes Date Note Type Note [...] R shoulder, posterior aspect. Yahaira Pandey PA-C [facility] [address], [place], [address], [place] - [facility] 08/30/2024 10:21:30 OBGyn Episode No OBEpisode recorded.
[2024-10-16 10:13] LABS: Hematocrit 42.9 % (37.0-47.0); Hemoglobin 13.5 g/dL (12.2-16.2); Immature Granulocytes % 0.3 %; Mean Corpuscular HGB Conc 31.5 g/dL (31.8-35.4); Mean Corpuscular Hemoglobin 29.0 pg (27.0-31.2); Mean Corpuscular Volume 92.1 fl (81-99); Nucleated Red Blood Cells % 0 %; Platelet Count 350 K/mm3 (142-424); Red Blood Count 4.66 M/mm3 (4.20-5.40); Red Cell Distribution Width-SD 46.2 fL; White Blood Count 9.4 K/mm3 (4.8-10.8)
[2024-10-16 10:37] LABS: Albumin Level 4.4 g/dl (3.5-5.0); Chloride 108 mmol/L (98-107); Potassium 4.0 mmoL/L (3.5-5.1)
[2024-10-16 10:39] LABS: Alanine Aminotransferase 20 U/L (12-78); Aspartate Amino Transferase 29 U/L (14-36); Blood Urea Nitrogen 9 mg/dl (7-17); Creatinine,Serum 1.00 mg/dl (0.52-1.04); Estimated Glomerular Filt Rate 67 ml/min (>60); GFR (African American) 80 ML/MIN (>60)
[2024-10-16 10:40] LABS: Albumin/Globulin Ratio 1.8 (1.1-1.8); Alkaline Phosphatase 67 U/L (38-126); Bilirubin,Total 0.6 mg/dl (0.2-1.3); Calcium 9.3 mg/dl (8.4-10.2); Carbon Dioxide 25 mmol/L (22.0-30.0); Globulin 2.4 g/dL (1.3-3.2); Glucose 98 mg/dl (74-100); Total Protein,Serum 6.8 g/dl (6.3-8.2)
[2024-10-16 11:14] LABS: Anion Gap 10.0 mEq/L (5-15); Sodium 139 mmol/L (136-145)
== END 2024-10-16 23:59 | disposition home or self-care (01) ==
LOC: PREOP 09:51
PROVIDERS: Visit Provider Surgery
DX: Z01.812 Encounter for preprocedural laboratory examination (principal); K80.20 Calculus of gallbladder without cholecystitis without obstruction
CPT/HCPCS: 80053; 85025

== ENCOUNTER 2024-10-22 06:08 | Day surgery (SDC) | payer MEDICARE, MEDICAID, SELFPAY ==
[2024-10-16 13:07] VITALS: BMI 33.3
[2024-10-22] VITALS (10 sets, daily range): BP systolic 112–153; BP diastolic 68–90; PULSE 69–79; RESP 16–20; TEMP 36.1–38; O2SAT 97–99
[2024-10-22] MEDS: LACTATED RINGERS 1000ML 1,000 ML 25 ML IV (06:37)
--- NOTE | 2024-10-22 06:45 | EXP.GEN.HP ---
HPI HPI HPI: Patient is a 28-year-old from [facility] with history of obstructive sleep apnea, OCD, fibromyalgia, bipolar who was a self-referral for gallstones. She has had symptoms of right upper quadrant postprandial pain for about a year. Initially she thought that this may be secondary to her undergoing laparoscopic hysterectomy last summer. She describes right-sided tenderness. Occasionally she has diarrhea following of the pain. This is intermittent but progressive in nature. She did undergo ultrasound at outside facility which reportedly reveals a 1.7 cm gallstone. She presented as a self-referral as she is interested in cholecystectomy. [facility] Disclaimer: The information contained in this section may have been updated after the patient was seen, as this information can be updated by other users. Medical History Substance abuse Migraines ANITHA (obstructive sleep apnea) Unable to tolerate CPAP in the past. Significant weight loss since initial diagnosis. Vertigo Dizziness Ocular migraine OCD (obsessive compulsive disorder) Fibromyalgia Allergies Bipolar 1 disorder Surgical History Hx of wisdom tooth extraction History of tonsillectomy and adenoidectomy History of ankle surgery History of hysterectomy History of elbow surgery History of surgery on left wrist Family History Substance abuse Father Mother Coronary artery disease Father Alcoholism Father Mother Hyperlipidemia Father Heart attack Father FHx: mental illness Father Mother Adopted Father Family history of CHF (congestive heart failure) Hypertension Father Social History (Updated 10/22/24 @ 06:26 by Gemini Alicia RN) Smoking Status: Never smoker second hand exposure: No alcohol intake: current substance use type: denies use current occupational status: disabled Travel in the last 8 weeks?: Inside the [place] Have you lived/traveled outside US in past 30 days?: No Contact w/someone who lives/traveled outside US past 30 days?: No Exposure to someone with infectious disease in past 14 days?: No Do you have a fever (greater than 100.4 F or 38 C)?: No Have you tested positive for COVID-19?: No Exposed to someone with COVID-19 in past 14 days?: No Do you have a sore throat?: No Do you have a cough?: No Do you have any weakness?: No Are you experiencing any nausea/vomitting?: No Do you have any diarrhea?: No Are you experiencing any unusual bleeding?: No Do you have any muscle aches/pain?: No Do you have any abdominal pain?: No Are you experiencing loss of taste or smell?: No Other Medical History Have you received the Pneumonia Vaccine: Yes Meds Home Medications and Allergies Home Medications ?Medication ?Instructions ?Recorded ?Confirmed ?Type epinephrine 0.3 mg/0.3 mL 0.3 mg IM DAILY PRN Anaphylaxis 05/14/24 10/22/24 History injection, auto-injector gabapentin 400 mg capsule 400 mg PO TID 05/14/24 10/22/24 History lithium carbonate 300 mg 300 mg PO DAILY 05/14/24 10/22/24 History tablet,extended release naltrexone 50 mg tablet 50 mg PO DAILY 05/14/24 10/22/24 History atogepant 30 mg tablet (Qulipta) 30 mg PO DAILY 09/03/24 10/22/24 History fluoxetine 40 mg capsule 40 mg PO ONCE 09/03/24 10/22/24 History lumateperone 21 mg capsule 42 mg PO DAILY 09/13/24 10/22/24 History (Caplyta) ondansetron HCl 4 mg tablet 4 mg PO Q6H PRN Nausea 10/16/24 10/22/24 History rimegepant 75 mg disintegrating 75 mg PO DAILY 10/16/24 10/22/24 History tablet (Nurtec ODT) tizanidine 4 mg capsule 4 mg PO BID PRN . 10/16/24 10/22/24 History New Prescriptions to Start Prescriptions: Allergies Allergy/AdvReac Type Severity Reaction Status Date / Time iodine Allergy Severe Anaphylaxis Verified 10/22/24 06:21 shellfish derived Allergy Severe Anaphylaxis Verified 10/22/24 06:21 Exam Data for Last 24 hours Vital signs and Labs for Last 24 Hours: Temp Pulse Resp BP Pulse Ox O2 Del Method 97.7 F 73 18 147/85 H 99 Room Air 10/22/24 06:25 10/22/24 06:25 10/22/24 06:25 10/22/24 06:25 10/22/24 06:25 10/22/24 06:25 Constitutional Constitutional: no acute distress *Routine HEENT Exam Head: Present normocephalic Eye: Present EOMI and PERRL ENT: Present mucous membranes moist *Routine Neck Exam Neck: Present supple; Absent lymphadenopathy *Routine Respiratory Exam Respiratory: Present CTA bilaterally *Routine Cardiovascular Exam Cardiovascular: Present RRR *Routine Abdominal Exam Abdominal: Present soft and normoactive bowel sounds; Absent tenderness *Routine Rectal Exam Rectal:: deferred *Routine Genitalia Exam Genitalia:: deferred *Routine Extremities Exam Extremities: Absent cyanosis, clubbing or edema *Routine Skin Exam Skin: Present warm; Absent rash *Routine Neurological Exam Neurological: Present alert and oriented X3 Assessment and Plan *Assessment and plan (1) Chronic cholecystitis with calculus: Status: Acute Category: Medical Code(s): K80.10 - Calculus of gallbladder with chronic cholecystitis without obstruction Plan Patient has a 1.6 cm stone in the neck of the gallbladder with normal common bile duct. I feel it may be reasonable to pursue cholecystectomy. I did explain that there is the possibility for alternative etiology to symptoms. Patiient understands. I explained to the nature and details of the proposed procedure along with associated risks and expected outcome. Patient understands and agrees to proceed.
--- NOTE | 2024-10-22 06:54 | P.PNANES_ITS ---
[facility] Disclaimer: The information contained in this section may have been updated after the patient was seen, as this information can be updated by other users. Medical History Substance abuse Migraines ANITHA (obstructive sleep apnea) Unable to tolerate CPAP in the past. Significant weight loss since initial diagnosis. Vertigo Dizziness Ocular migraine OCD (obsessive compulsive disorder) Fibromyalgia Allergies Bipolar 1 disorder Surgical History Hx of wisdom tooth extraction History of tonsillectomy and adenoidectomy History of ankle surgery History of hysterectomy History of elbow surgery History of surgery on left wrist Family History Father Substance abuse Coronary artery disease Alcoholism Hyperlipidemia Heart attack FHx: mental illness Adopted Hypertension Mother Substance abuse Alcoholism FHx: mental illness Other Family history of CHF (congestive heart failure) Social History (Updated 10/22/24 @ 06:26 by Gemini Alicia RN) Smoking Status: Never smoker second hand exposure: No alcohol intake: current substance use type: denies use current occupational status: disabled Travel in the last 8 weeks?: Inside the [place] Have you lived/traveled outside US in past 30 days?: No Contact w/someone who lives/traveled outside US past 30 days?: No Exposure to someone with infectious disease in past 14 days?: No Do you have a fever (greater than 100.4 F or 38 C)?: No Have you tested positive for COVID-19?: No Exposed to someone with COVID-19 in past 14 days?: No Do you have a sore throat?: No Do you have a cough?: No Do you have any weakness?: No Are you experiencing any nausea/vomitting?: No Do you have any diarrhea?: No Are you experiencing any unusual bleeding?: No Do you have any muscle aches/pain?: No Do you have any abdominal pain?: No Are you experiencing loss of taste or smell?: No [facility] Anesthesia Checklist Patient Identification Patient Identification: Arm Band and Family Structural Data Admitted From: Home Planned Operative Procedure/s: Lap Mirta Consent for Planned Operative Procedure(s) Verified: Yes Verified Documents: Surgical Consent and History and Physical NPO Status Verified Time NPO: 00:00 Additional verifications Patient : No Anesthesia Reactions: No Hx Blood Transfusions: No Blood Transfusion Reaction: No Cephalosporin Allergy: No Previous Colonoscopy: No Airway Assessment Mallampati Score:: Class II C-Spine Mobility Assessed: Yes TMJ Mobility Assessed: Yes Dentition: Good Dentition Neurological Assessment Level of Consciousness: Awake, Alert, Appropriate and Follows Commands Hx Seizures: Yes (One month ago, takes Gabapentin.) Numbness or tingling in extremities: No Anesthesia Plan Anesthesia Risk discussed: Yes ASA Class: II Anesthesia Type: General Preoperative Comments Pre-Operative Comments: PONV. History of seizure.
[2024-10-22] MEDS: LIDOCAINE 1% 20ML MDV 20 ML (07:39)
[2024-10-22] MEDS: SODIUM CHLORIDE IRRIG SOLUTION 3,000 ML 3000 ML IR (07:41)
--- NOTE | 2024-10-22 08:05 | EXP.OP.NOTE ---
Date of procedure: 10/22/24 Pre-op Diagnosis:: Symptomatic gallstones Post-op Diagnosis:: Same Procedure performed:: Laparoscopic cholecystectomy Surgeon:: Adam Cline MD Anesthesia: JORGE Estimated blood loss (mL): 15 Operative findings:: She had a somewhat distended gallbladder with a small to moderate gallstone. Operative note:: Consent was obtained patient was taken to the operating room. Patient was positioned in a supine position. General anesthesia was induced via endotracheal tube. Abdomen was prepped and draped in the standard surgical fashion. Subumbilical skin incision was made and while performing abdominal wall lift Veress needle was inserted. CO2 pneumoperitoneum was achieved to 15 mmHg. 11 mm optical trocar was inserted at the umbilicus. Patient was positioned in reverse Trendelenburg left side down. A couple 5 mm trocars were inserted in the right upper abdomen. 11 mm trocar was inserted in the epigastrium. Gallbladder was identified and grasped retracted anteriorly and superiorly over the dome of the liver. Infundibulum/Ladd's pouch of the gallbladder was retracted anterior laterally. Blunt dissection was carried out at the neck of the gallbladder bluntly incising the visceral peritoneum. Cystic duct and cystic artery were clearly identified and dissected free. Cystic duct was isolated, multiply clipped, and sharply divided. Cystic artery was carefully coagulated with ultrasonic harmonic sunshine and divided. Gallbladder was dissected free from the liver in a retrograde fashion using ultrasonic harmonic sunshine. Gallbladder was placed within an Endo Catch retrieval device and removed from the peritoneal cavity via the umbilical trocar site. Gallbladder fossa was inspected for hemostasis which was assured. Very limited irrigation was performed. Trocars were removed the CO2 pneumoperitoneum was evacuated. Fascia at the umbilicus was closed with a 0 Vicryl suture. Local anesthetic was infiltrated. Skin incision was closed with 4-0 Monocryl subcuticular fashion. The epidermis was oversewn with a running 5-0 fast absorbing plain gut at the epigastric trocar site. Steri-Strips and dressings were applied. Condition: stable Disposition: PACU Complications:: None immediately apparent
--- NOTE | 2024-10-22 08:17 | P.PNANES_ITS ---
[facility] Anesthesia Record Part I Anesthesia Record I Intake, IV Amount: 700 Hydration: Adequate Estimated blood loss (mL): 15 Urine output (mL): 0 Blood Products used (#): none Blood Pressure: 146/84 SaO2: 98 Pulse Rate: 78 Airway Patency: Patent Respiratory Rate: 18 Temperature: 98.5 F Patient is:: Drowsy and Stable Stable to PACU at:: 08:14
[2024-10-22] MEDS: MORPHINE 2MG/ML SYRINGE 2 MG IV ×2 (08:30→08:37)
[2024-10-22] MEDS: MEPERIDINE 50MG/ML 1ML SYRINGE 50 MG (08:40)
--- NOTE | 2024-10-23 10:19 | P.PNANES_ITS ---
[facility] Anesthesia Record Part II Anesthesia Record Part II Discharge Time: 08:44 Destination: Surgical Day Care (OP Surgery) PACU nurse assessment reviewed?: Yes Patient Condition:: Good Anesthesia Complications:: None Swallowing reflex intact?: Yes Airway Patency: Patent Cyanosis?: No Blood Pressure: 153/81 SaO2: 98 Respiratory Rate: 16 Pulse Rate: 70 Temperature: 98.5 F Mental Status: Alert & Oriented Pain level:: 5 Nausea and/or vomitting:: None Intake, IV Amount: 0 Hydration: Adequate
[2024-10-23 10:21] VITALS: BP 153/81; PULSE 70; RESP 16; TEMP 36.9; O2SAT 98
== END 2024-10-22 09:16 | disposition home or self-care (01) ==
PROVIDERS: Visit Provider Surgery
PROC: 0FT44ZZ Resection of Gallbladder, Percutaneous Endoscopic Approach (ICD-10-PCS; CPT 47562; principal; 2024-10-22 07:30)
DX: K80.10 Calculus of gallbladder with chronic cholecystitis without obstruction (principal); G47.33 Obstructive sleep apnea (adult) (pediatric); M79.7 Fibromyalgia; F42.9 Obsessive-compulsive disorder, unspecified; G43.B0 Ophthalmoplegic migraine, not intractable; F31.9 Bipolar disorder, unspecified; Z90.710 Acquired absence of both cervix and uterus; Z79.899 Other long term (current) drug therapy; Z88.8 Allergy status to other drugs, medicaments and biological substances; Z91.013 Allergy to seafood
CPT/HCPCS: 47562; 88304; 96374; J0690; J1100; J2003; J2175; J2250; J2270; J2405; J2704; J2795; J3010; J7120

== ENCOUNTER → 2025-01-31 20:14 | Outpatient (CLI) | payer MEDICARE, MEDICAID, SELFPAY ==
--- OUTSIDE RECORDS SUMMARY | 2025-01-31 20:17 | XMS_ITS | Data Portability ---
Author Organization [facility] Address [address] [place] [address] Assessment No assessment recorded. Plan of Treatment Reminders Order Date Submit Date Provider Last Modified By Organization Details Last Modified Time Details Appointments None recorded. Lab CBC w/ auto diff 2024 025 KERI [facility], [address], [address], [place], [address], 5 04:10:48 vitamin D, 25-hydrox y, total, serum 2024 025 KERI [facility], [address], [address], [place], [address], 5 07:14:39 iron + total iron-bind ing capacity (TIBC), serum 2024 025 KERI [facility], [address], [address] [address], [place], [address], 5 07:14:38 ferritin, serum or plasma 2024 025 KERI [facility], [address], [address] [address], [place], [address], 5 07:14:40 CBC w/ auto diff 2024 025 KERI [facility], [address], [address] [address], [place], [address], 5 07:14:37 vitamin B12, serum 2024 025 KERI [facility], [address], [address], [place], [address], 5 07:14:40 TSH, ultra-sen sitive, serum 2024 025 KERI [facility], [address], [address] [address], [place], [address], 5 07:14:39 BMP, serum or plasma 2024 025 KERI [facility], [address], [address] [address], [place], [address], 5 07:14:38 hormone panel, serum or plasma 2024 025 KERI [facility], [address], [address], [place], [address], 5 22:09:17 iron + total iron-bind ing capacity (TIBC), serum 2024 025 KERI [facility], [address], [address], [place], [address], 5 22:09:18 ferritin, serum or plasma 2024 025 KERI [facility], [address], [address] [address], [place], [address], 5 22:09:18 CBC w/ auto diff 2024 025 KERI [facility], [address], [address] [address], [place], [address], 5 22:09:17 Referral physical therapist referral 2024 025 [email or web address] [facility], [address], [place], [address], 10:04:47 pain managemen t referral 2024 025 KERI [facility], [address] [facility] [address] , [place] [address], [place], [address], 5 08:14:15 physical therapist referral 2024 025 [facility]f [facility], [address], [place], [address], 5 18:40:10 physical therapist referral 2024 025 [facility]f [facility], [address], [place], [address], 5 18:40:10 Procedures None recorded. Surgeries None recorded. Imaging XR, knee, 3 view 2024 025 KERI Not available 5 16:27:26 XR, wrist, 3 or more view 2024 025 [facility], [address] [facility] , [place], [address], 5 16:27:49 US, abdomen, complete 2024 025 KERI Not available 5 13:56:50 Medication Orders albuterol sulfate HFA 90 mcg/actua tion aerosol inhaler 2024 025 KERI [facility] [address], [place], [address], 5 09:43:40 methocarb hardeep 500 mg tablet 2024 025 KERI [facility], [address], [place], [address], 5 10:59:05 Patient TargetsNo targets recorded. Patient Instructions Encounter Date Encounter Id Patient Instructions Last Modified By Organization Details Last Modified Time 08/30/2024 [id number] learning about healthy weight ehimes Not available 08/30/2024 10:24:53 body mass index: care instructions ehimes Not available 08/30/2024 10:24:53 Will call with l ab results ehimes Not available 08/30/2024 10:17:11 11/27/2024 [id number] learning about healthy weight ehimes Not available 11/27/2024 10:56:10 body mass index: care instructions ehimes Not available 11/27/2024 10:56:10 01/01/2025 [id number] complete PFT w/ post bronchodilator spirometry* KERI Not available 01/11/2025 09:04:59 Will follow-up o n labs and PFTs. The tenderness over the mons pubis is the likely insertion points of musculature. I do not feel any abnormalities there. Reassurance given. ehimes Not available 01/01/2025 10:33:58 Reason for Referral Physical Therapist Referral for Pain of right knee joint Referring Physician: Yahaira Pandey [facility], Encounter Date: 09/21/2024 Physical Therapist Referral for Pain of left wrist Referring Physician: Yahaira Pandey [facility], Encounter Date: 09/21/2024 Pain Management Referral for Fibromyalgia Referring Physician: Yahaira Pandey [facility], Encounter Date: 11/27/2024 Physical Therapist Referral for Pain of right knee joint Referring Physician: Yahaira Pandey [facility], Encounter Date: 01/15/2025 Results Created Date Observation Date Name Description Value Unit Range Abnormal Flag Note LastModifiedBy Organization Detail LastModifiedTime 08/31/1908/31/2024 LH+FS H+EST ROGEN LH 3.4 mIU/m L normal Adult Femal e Range Folli cular phase 2.4 - 12.6 Ovula tion phase 14.0 - 95.6 Lutea l phase 1.0 - 11.4 Postm enopa usal 7.7 - 58.5 Not Available [facility] ([facility]) [address] [facility] [address], [place], [address], 09/01/2024 22:09:16 0508/31/2024 LH+FS H+EST ROGEN FSH 1.2 mIU/m L Adult Femal e Range Folli cular phase 3.5 - 12.5 Ovula tion phase 4.7 - 21.5 Lutea l phase 1.7 - 7.7 Postm enopa usal 25.8 - 134.8 Not Available [facility] ([facility]) [address] [place], [address], 09/01/2024 22:09:16 08/31/19 25 09/01/2024 LH+FS H+EST ROGEN estrogens, total 704 pg/mL normal Prepu yessica l < 40 Femal e Cycle : 1-10 Days 16 - 328 11-20 Days 34 - 501 21-30 Days 48 - 350 Post- Menop ausal 40 - 244 Not Available [facility] ([facility]) [address] [place], [address], 09/01/2024 22:09:16 08/31/19 25 08/31/2024 CBC WITH DIFFE RENTI AL/PL ATELE T WBC 10.2 x10e3 /uL 3.4-10 .8 normal Not Available [facility] ([facility]) [address] [place], [address], 09/01/2024 22:09:17 08/31/19 25 08/31/2024 CBC WITH DIFFE RENTI AL/PL ATELE T RBC 4.49 x10e6 /uL 3.77-5 .28 normal Not Available [facility] ([facility]) [address] [place], [address], 09/01/2024 22:09:17 08/31/19 25 08/31/2024 CBC WITH DIFFE RENTI AL/PL ATELE T hemoglobin 12.6 g/dL 11.1-1 5.9 normal Not Available [facility] ([facility]) [address] [place], [address], 09/01/2024 22:09:17 08/31/1908/31/2024 CBC WITH DIFFE RENTI AL/PL ATELE T hematocrit 40.4 % 34.0-4 6.6 normal Not Available [facility] ([facility]) [address] [place], [address], 09/01/2024 22:09:17 08/31/19 25 08/31/2024 CBC WITH DIFFE RENTI AL/PL ATELE T MCV 90 fL 79-97 normal Not Available [facility] ([facility]) [address] [place], [address], 09/01/2024 22:09:17 08/31/1908/31/2024 CBC WITH DIFFE RENTI AL/PL ATELE T MCH 28.1 pg 26.6-3 3.0 normal Not Available [facility] ([facility]) [address] [facility], [place], [address], 09/01/2024 22:09:17 08/31/1908/31/2024 CBC WITH DIFFE RENTI AL/PL ATELE T MCHC 31.2 g/dL 31.5-3 5.7 below low normal Not Available [facility] ([facility]) [address] [place], [address], 09/01/2024 22:09:17 08/31/1908/31/2024 CBC WITH DIFFE RENTI AL/PL ATELE T RDW 13.5 % 11.7-1 5.4 Not Available [facility] ([facility]) [address] [place], [address], 09/01/2024 22:09:17 08/31/1908/31/2024 CBC WITH DIFFE RENTI AL/PL ATELE T platelets 325 x10e3 /uL 150-45 0 normal Not Available [facility] ([facility]) [address] [place], [address], 09/01/2024 22:09:17 08/31/19 08/31/2024 CBC WITH DIFFE RENTI AL/PL ATELE T neutrophils 61 % not estab. normal Not Available [facility] ([facility]) [address] [facility], [place], [address], 09/01/2024 22:09:17 08/31/19 25 08/31/2024 CBC WITH DIFFE RENTI AL/PL ATELE T lymphs 28 % not estab. normal Not Available [facility] ([facility]) [address] [facility], [place], [address], 09/01/2024 22:09:17 08/31/1908/31/2024 CBC WITH DIFFE RENTI AL/PL ATELE T monocytes 8 % not estab. normal Not Available [facility] ([facility]) [address] [facility] [address], [place], [address], 09/01/2024 22:09:17 08/31/19 25 08/31/2024 CBC WITH DIFFE RENTI AL/PL ATELE T eos 2 % not estab. normal Not Available [facility] ([facility]) [address] [place], [address], 09/01/2024 22:09:17 08/31/1908/31/2024 CBC WITH DIFFE RENTI AL/PL ATELE T basos 1 % not estab. normal Not Available [facility] ([facility]) [address] [place], [address], 09/01/2024 22:09:17 08/31/1908/31/2024 CBC WITH DIFFE RENTI AL/PL ATELE T immature cells BAKERY CHEF Not Available [facility] ([facility]) [address] [place], [address], 09/01/2024 22:09:17 08/31/19 25 08/31/2024 CBC WITH DIFFE RENTI AL/PL ATELE T neutrophils (absolute) 6.2 x10e3 /uL 1.4-7. 0 normal Not Available [facility] ([facility]) [address] [facility] [address], [place], [address], 09/01/2024 22:09:17 08/31/19 25 08/31/2024 CBC WITH DIFFE RENTI AL/PL ATELE T lymphs (absolute) 2.8 x10e3 /uL 0.7-3. 1 normal Not Available [facility] ([facility]) [address] [facility] [address], [place], [address], 09/01/2024 22:09:17 08/31/19 25 08/31/2024 CBC WITH DIFFE RENTI AL/PL ATELE T monocytes(ab solute) 0.8 x10e3 /uL 0.1-0. 9 normal Not Available [facility] ([facility]) [address] [facility], [place], [address], 09/01/2024 22:09:17 08/31/19 25 08/31/2024 CBC WITH DIFFE RENTI AL/PL ATELE T eos (absolute) 0.2 x10e3 /uL 0.0-0. 4 normal Not Available [facility] ([facility]) [address] [facility] [address], [place], [address], 09/01/2024 22:09:17 08/31/19 25 08/31/2024 CBC WITH DIFFE RENTI AL/PL ATELE T baso (absolute) 0.1 x10e3 /uL 0.0-0. 2 normal Not Available [facility] ([facility]) [address] [place], [address], 09/01/2024 22:09:17 08/31/1908/31/2024 CBC WITH DIFFE RENTI AL/PL ATELE T immature granulocytes 0 % not estab. Not Available [facility] ([facility]) [address] [place], [address], 09/01/2024 22:09:17 08/31/19 08/31/2024 CBC WITH DIFFE RENTI AL/PL ATELE T immature grans (abs) 0.0 x10e3 /uL 0.0-0. 1 Not Available [facility] ([facility]) [address] [place], [address], 09/01/2024 22:09:17 08/31/19 25 08/31/2024 CBC WITH DIFFE RENTI AL/PL ATELE T NRBC BAKERY CHEF Not Available [facility] ([facility]) [address] [facility] [address], [place], [address], 09/01/2024 22:09:17 08/31/1908/31/2024 CBC WITH DIFFE RENTI AL/PL ATELE T hematology comments: BAKERY CHEF Not Available [facility] ([facility]) [address] [facility] [address], [place], [address], 09/01/2024 22:09:17 08/31/1908/31/2024 IRON AND TIBC iron bind.cap.(TI BC) 309 ug/dL 250-45 0 normal Not Available [facility] ([facility]) [address] [place], [address], 09/01/2024 22:09:18 08/31/1908/31/2024 IRON AND TIBC UIBC 226 ug/dL 131-42 5 normal Not Available [facility] ([facility]) [address] [place], [address], 09/01/2024 22:09:18 08/31/19 25 08/31/2024 IRON AND TIBC iron 83 ug/dL 27-159 normal Not Available [facility] ([facility]) [address] [place], [address], 09/01/2024 22:09:18 08/31/19 25 08/31/2024 IRON AND TIBC iron saturation 27 % 15-55 normal Not Available [facility] ([facility]) [address] [place], [address], 09/01/2024 22:09:18 08/31/19 25 08/31/2024 CHRIS TIN ferritin 54 NG/mL 15-150 normal Not Available [facility] ([facility]) [address] [place], [address], 09/01/2024 22:09:18 01/02/2001/02/2025 CBC WITH DIFFE RENTI AL/PL ATELE T WBC 14.0 x10e3 /uL 3.4-10 .8 above high normal Not Available [facility] ([facility]) [address] [place], [address], 01/02/2025 07:14:37 01/02/2001/02/2025 CBC WITH DIFFE RENTI AL/PL ATELE T RBC 4.66 x10e6 /uL 3.77-5 .28 normal Not Available [facility] ([facility]) [address] [place], [address], 01/02/2025 07:14:37 01/02/2001/02/2025 CBC WITH DIFFE RENTI AL/PL ATELE T hemoglobin 13.6 g/dL 11.1-1 5.9 normal Not Available [facility] ([facility]) [address] [place], [address], 01/02/2025 07:14:37 01/02/2001/02/2025 CBC WITH DIFFE RENTI AL/PL ATELE T hematocrit 42.9 % 34.0-4 6.6 normal Not Available [facility] ([facility]) [address] [place], [address], 01/02/2025 07:14:37 01/02/2001/02/2025 CBC WITH DIFFE RENTI AL/PL ATELE T MCV 92 fL 79-97 normal Not Available [facility] ([facility]) [address] [place], [address], 01/02/2025 07:14:37 01/02/20 25 01/02/2025 CBC WITH DIFFE RENTI AL/PL ATELE T MCH 29.2 pg 26.6-3 3.0 normal Not Available [facility] ([facility]) [address] [facility], [place], [address], 01/02/2025 07:14:37 01/02/20 25 01/02/2025 CBC WITH DIFFE RENTI AL/PL ATELE T MCHC 31.7 g/dL 31.5-3 5.7 normal Not Available [facility] ([facility]) [address] [place], [address], 01/02/2025 07:14:37 01/02/20 25 01/02/2025 CBC WITH DIFFE RENTI AL/PL ATELE T RDW 12.6 % 11.7-1 5.4 Not Available [facility] ([facility]) [address] [facility] [address], [place], [address], 01/02/2025 07:14:37 01/02/2001/02/2025 CBC WITH DIFFE RENTI AL/PL ATELE T platelets 402 x10e3 /uL 150-45 0 normal Not Available [facility] ([facility]) [address] [facility] [address], [place], [address], 01/02/2025 07:14:37 01/02/2001/02/2025 CBC WITH DIFFE RENTI AL/PL ATELE T neutrophils 62 % not estab. normal Not Available [facility] ([facility]) [address] [place], [address], 01/02/2025 07:14:37 01/02/20 25 01/02/2025 CBC WITH DIFFE RENTI AL/PL ATELE T lymphs 29 % not estab. normal Not Available [facility] ([facility]) [address] [place], [address], 01/02/2025 07:14:37 01/02/20 25 01/02/2025 CBC WITH DIFFE RENTI AL/PL ATELE T monocytes 6 % not estab. normal Not Available [facility] ([facility]) [address] [facility] [address], [place], [address], 01/02/2025 07:14:37 01/02/20 25 01/02/2025 CBC WITH DIFFE RENTI AL/PL ATELE T eos 2 % not estab. normal Not Available [facility] ([facility]) [address] [facility] [address], [place], [address], 01/02/2025 07:14:37 01/02/2001/02/2025 CBC WITH DIFFE RENTI AL/PL ATELE T basos 1 % not estab. normal Not Available [facility] ([facility]) [address] [facility] [address], [place], [address], 01/02/2025 07:14:37 01/02/2001/02/2025 CBC WITH DIFFE RENTI AL/PL ATELE T immature cells BAKERY CHEF Not Available [facility] ([facility]) [address] [place], [address], 01/02/2025 07:14:37 01/02/20 25 01/02/2025 CBC WITH DIFFE RENTI AL/PL ATELE T neutrophils (absolute) 8.6 x10e3 /uL 1.4-7. 0 above high normal Not Available [facility] ([facility]) [address] [place], [address], 01/02/2025 07:14:37 01/02/20 25 01/02/2025 CBC WITH DIFFE RENTI AL/PL ATELE T lymphs (absolute) 4.0 x10e3 /uL 0.7-3. 1 above high normal Not Available [facility] ([facility]) [address] [place], [address], 01/02/2025 07:14:37 01/02/20 25 01/02/2025 CBC WITH DIFFE RENTI AL/PL ATELE T monocytes(ab solute) 0.9 x10e3 /uL 0.1-0. 9 normal Not Available [facility] ([facility]) [address] [facility] [address], [place], [address], 01/02/2025 07:14:37 01/02/20 25 01/02/2025 CBC WITH DIFFE RENTI AL/PL ATELE T eos (absolute) 0.3 x10e3 /uL 0.0-0. 4 normal Not Available [facility] ([facility]) [address] [facility] [address], [place], [address], 01/02/2025 07:14:37 01/02/20 25 01/02/2025 CBC WITH DIFFE RENTI AL/PL ATELE T baso (absolute) 0.1 x10e3 /uL 0.0-0. 2 normal Not Available [facility] ([facility]) [address] [facility], [place], [address], 01/02/2025 07:14:37 01/02/2001/02/2025 CBC WITH DIFFE RENTI AL/PL ATELE T immature granulocytes 0 % not estab. Not Available [facility] ([facility]) [address] [facility] [address], [place], [address], 01/02/2025 07:14:37 01/02/2001/02/2025 CBC WITH DIFFE RENTI AL/PL ATELE T immature grans (abs) 0.0 x10e3 /uL 0.0-0. 1 Not Available [facility] ([facility]) [address] [place], [address], 01/02/2025 07:14:37 01/02/20 25 01/02/2025 CBC WITH DIFFE RENTI AL/PL ATELE T NRBC BAKERY CHEF Not Available [facility] ([facility]) [address] [place], [address], 01/02/2025 07:14:37 01/02/20 25 01/02/2025 CBC WITH DIFFE KATHARINE AL/PL FLORECITA T hematology comments: BAKERY CHEF Not Available [facility] ([facility]) [address] [facility] [address], [place], [address], 01/02/2025 07:14:37 01/02/20 25 01/02/2025 BASIC METAB OLIC PANEL (8) glucose 84 mg/dL 70-99 normal Not Available [facility] ([facility]) [address] [place], [address], 01/02/2025 07:14:38 01/02/20 25 01/02/2025 BASIC METAB OLIC PANEL (8) BUN 8 mg/dL 6-20 normal Not Available [facility] ([facility]) [address] [place], [address], 01/02/2025 07:14:38 01/02/20 25 01/02/2025 BASIC METAB OLIC PANEL (8) creatinine 0.91 mg/dL 0.57-1 .00 normal Not Available [facility] ([facility]) [address] [place], [address], 01/02/2025 07:14:38 01/02/20 25 01/02/2025 BASIC METAB OLIC PANEL (8) eGFR 88 mL/mi n/1.7 3 >59 normal Not Available [facility] ([facility]) [address] [place], [address], 01/02/2025 07:14:38 01/02/20 25 01/02/2025 BASIC METAB OLIC PANEL (8) BUN/creatini ne ratio 9 9-23 normal Not Available [facility] ([facility]) [address] [place], [address], 01/02/2025 07:14:38 01/02/20 25 01/02/2025 BASIC METAB OLIC PANEL (8) sodium 139 mmol/ L 134-14 4 normal Not Available [facility] ([facility]) [address] [place], [address], 01/02/2025 07:14:38 01/02/20 25 01/02/2025 BASIC METAB OLIC PANEL (8) potassium 4.2 mmol/ L 3.5-5. 2 normal Not Available [facility] ([facility]) [address] [place], [address], 01/02/2025 07:14:38 01/02/20 25 01/02/2025 BASIC METAB OLIC PANEL (8) chloride 108 mmol/ L 96-106 above high normal Not Available [facility] ([facility]) [address] [place], [address], 01/02/2025 07:14:38 01/02/20 25 01/02/2025 BASIC METAB OLIC PANEL (8) carbon dioxide, total 17 mmol/ L 20-29 below low normal Not Available [facility] ([facility]) [address] [place], [address], 01/02/2025 07:14:38 01/02/20 25 01/02/2025 BASIC METAB OLIC PANEL (8) calcium 9.4 mg/dL 8.7-10 .2 normal Not Available [facility] ([facility]) [address] [place], [address], 01/02/2025 07:14:38 01/02/2001/02/2025 IRON AND TIBC iron bind.cap.(TI BC) 330 ug/dL 250-45 0 normal Not Available [facility] ([facility]) [address] [place], [address], 01/02/2025 07:14:38 01/02/20 25 01/02/2025 IRON AND TIBC UIBC 277 ug/dL 131-42 5 normal Not Available [facility] ([facility]) [address] [place], [address], 01/02/2025 07:14:38 01/02/2001/02/2025 IRON AND TIBC iron 53 ug/dL 27-159 normal Not Available [facility] ([facility]) [address], [place], [address], 01/02/2025 07:14:38 01/02/2001/02/2025 IRON AND TIBC iron saturation 16 % 15-55 normal Not Available [facility] ([facility]) [address], [place], [address], 01/02/2025 07:14:38 01/02/2001/02/2025 TSH TSH 2.250 uIU/m L 0.450- 4.500 normal Not Available [facility] ([facility]) [address], [place], [address], 01/02/2025 07:14:39 01/02/2001/02/2025 VITAM IN D, 25-HY DROXY vitamin D, 25-hydroxy 34.3 NG/mL 30.0-1 00.0 Vitam in D defic [...] Kelsey rashid [place]: The [facility] . 2. Jammie pelaez [place], Leena friedman [place], [place] off-[facility] errar i ROJO, et al. Evalu ation , treat ment, and preve ntion of vitam in D defic iency : an Endoc rine Socie ty clini sully pract ice guide line. JCEM. 2010; 96(7) :1911 -30. Not Available [facility] ([facility]) [address] [facility] [place], [address], 01/02/2025 07:14:39 01/02/20 25 01/02/2025 VITAM IN B12 vitamin B12 438 pg/mL 232-12 45 normal Not Available [facility] ([facility]) [address] [facility] [place], [address], 01/02/2025 07:14:40 01/02/20 25 01/02/2025 CHRIS TIN ferritin 60 NG/mL 15-150 normal Not Available [facility] ([facility]) [address] [facility] [place], [address], 01/02/2025 07:14:40 01/16/20 25 01/16/2025 CBC WITH DIFFE RENTI AL/PL ATELE T WBC 13.0 x10e3 /uL 3.4-10 .8 above high normal Not Available [facility] ([facility]) [address] [place], [address], 01/16/2025 04:10:48 01/16/20 25 01/16/2025 CBC WITH DIFFE RENTI AL/PL ATELE T RBC 4.64 x10e6 /uL 3.77-5 .28 normal Not Available [facility] ([facility]) [address] [place], [address], 01/16/2025 04:10:48 01/16/20 25 01/16/2025 CBC WITH DIFFE RENTI AL/PL ATELE T hemoglobin 13.5 g/dL 11.1-1 5.9 normal Not Available [facility] ([facility]) [address] [place], [address], 01/16/2025 04:10:48 01/16/20 25 01/16/2025 CBC WITH DIFFE RENTI AL/PL ATELE T hematocrit 43.8 % 34.0-4 6.6 normal Not Available [facility] ([facility]) [address] [facility], [place], [address], 01/16/2025 04:10:48 01/16/20 25 01/16/2025 CBC WITH DIFFE RENTI AL/PL ATELE T MCV 94 fL 79-97 normal Not Available [facility] ([facility]) [address] [facility], [place], [address], 01/16/2025 04:10:48 01/16/20 25 01/16/2025 CBC WITH DIFFE RENTI AL/PL ATELE T MCH 29.1 pg 26.6-3 3.0 normal Not Available [facility] ([facility]) [address] [facility], [place], [address], 01/16/2025 04:10:48 01/16/20 25 01/16/2025 CBC WITH DIFFE RENTI AL/PL ATELE T MCHC 30.8 g/dL 31.5-3 5.7 below low normal Not Available [facility] ([facility]) [address] [facility], [place], [address], 01/16/2025 04:10:48 01/16/20 25 01/16/2025 CBC WITH DIFFE RENTI AL/PL ATELE T RDW 12.6 % 11.7-1 5.4 Not Available [facility] ([facility]) [address] [facility], [place], [address], 01/16/2025 04:10:48 01/16/20 25 01/16/2025 CBC WITH DIFFE RENTI AL/PL ATELE T platelets 416 x10e3 /uL 150-45 0 normal Not Available [facility] ([facility]) [address] [facility], [place], [address], 01/16/2025 04:10:48 01/16/20 25 01/16/2025 CBC WITH DIFFE RENTI AL/PL ATELE T neutrophils 69 % not estab. normal Not Available [facility] ([facility]) [address] [facility], [place], [address], 01/16/2025 04:10:48 01/16/20 25 01/16/2025 CBC WITH DIFFE RENTI AL/PL ATELE T lymphs 23 % not estab. normal Not Available [facility] ([facility]) [address] [facility], [place], [address], 01/16/2025 04:10:48 01/16/20 25 01/16/2025 CBC WITH DIFFE RENTI AL/PL ATELE T monocytes 5 % not estab. normal Not Available [facility] ([facility]) [address] [facility], [place], [address], 01/16/2025 04:10:48 01/16/20 25 01/16/2025 CBC WITH DIFFE RENTI AL/PL ATELE T eos 2 % not estab. normal Not Available [facility] ([facility]) [address] [facility], [place], [address], 01/16/2025 04:10:48 01/16/20 25 01/16/2025 CBC WITH DIFFE RENTI AL/PL ATELE T basos 1 % not estab. normal Not Available [facility] ([facility]) [address] [facility] [address], [place], [address], 01/16/2025 04:10:48 01/16/20 25 01/16/2025 CBC WITH DIFFE RENTI AL/PL ATELE T immature cells BAKERY CHEF Not Available [facility] ([facility]) [address] [place], [address], 01/16/2025 04:10:48 01/16/20 25 01/16/2025 CBC WITH DIFFE RENTI AL/PL ATELE T neutrophils (absolute) 8.8 x10e3 /uL 1.4-7. 0 above high normal Not Available [facility] ([facility]) [address] [place], [address], 01/16/2025 04:10:48 01/16/20 25 01/16/2025 CBC WITH DIFFE RENTI AL/PL ATELE T lymphs (absolute) 3.0 x10e3 /uL 0.7-3. 1 normal Not Available [facility] ([facility]) [address] [facility] [address], [place], [address], 01/16/2025 04:10:48 01/16/20 25 01/16/2025 CBC WITH DIFFE RENTI AL/PL ATELE T monocytes(ab solute) 0.7 x10e3 /uL 0.1-0. 9 normal Not Available [facility] ([facility]) [address], [place], [address], 01/16/2025 04:10:48 01/16/20 25 01/16/2025 CBC WITH DIFFE RENTI AL/PL ATELE T eos (absolute) 0.3 x10e3 /uL 0.0-0. 4 normal Not Available [facility] ([facility]) [address], [place], [address], 01/16/2025 04:10:48 01/16/20 25 01/16/2025 CBC WITH DIFFE RENTI AL/PL ATELE T baso (absolute) 0.1 x10e3 /uL 0.0-0. 2 normal Not Available [facility] ([facility]) [address] [facility] [address], [place], [address], 01/16/2025 04:10:48 01/16/20 25 01/16/2025 CBC WITH DIFFE RENTI AL/PL ATELE T immature granulocytes 0 % not estab. Not Available [facility] ([facility]) [address], [place], [address], 01/16/2025 04:10:48 01/16/20 25 01/16/2025 CBC WITH DIFFE RENTI AL/PL ATELE T immature grans (abs) 0.0 x10e3 /uL 0.0-0. 1 Not Available [facility] ([facility]) [address], [place], [address], 01/16/2025 04:10:48 01/16/20 25 01/16/2025 CBC WITH DIFFE RENTI AL/PL ATELE T NRBC BAKERY CHEF Not Available [facility] ([facility]) [address], [place], [address], 01/16/2025 04:10:48 01/16/20 25 01/16/2025 CBC WITH DIFFE RENTI AL/PL ATELE T hematology comments: BAKERY CHEF Not Available [facility] ([facility]) [address], [place], [address], 01/16/2025 04:10:48 09/04/19 US, abdom en, compl ete No observ ation record ed. jeferson Not Available 2024 15:51:14 10/06/19 25 10/04/2024 XR, knee, 3 view No observ ation record ed. jeferson Not Available 2024 10:10:55 10/06/19 25 10/04/2024 XR, wrist , 3 or more view No observ ation record ed. jeferson [facility] [address] , [place], [address], 10/08/2024 10:10:55 01/02/20 25 09/18/2024 home sleep testi ng (PROC ) No observ ation record ed. [facility] (Med Record) [address], [place], [address], 01/01/2025 11:47:39 01/12/20 25 01/02/2025 compl ete PFT w/ [facility] hodil ator jelly metry * No observ ation record ed. jeferson [facility] (Medical Records) [address] [facility] , [place], [address], 01/14/2025 13:35:25 Result Notes None recorded. Problems Name Problem SNOMED Code Status Onset Date Resolution Date Notes Provider Name and Address Organization Details Recorded Time Fibromyalgia 881063379 Active 2024 Yahaira Pandey CARLOS [address], [place], [address], [place] - [facility] 11:12:18 Obsessive-comp ulsive disorder 843620908 Active 2024 Yahaira Pandey CARLOS [address], [place], [address], [place] - [facility] 5 11:12:28 Bipolar disorder 32881801 Active 2024 Yahaira Pandey CARLOS [address], [place], [address], [place] - [facility] 5 11:12:36 Migraine 00388950 Active 2024 Yahaira Pandey CARL[address], [place], [address], [place] - [facility] 5 11:12:44 Iron deficiency 78544176 Active 2024 RAFAL DuquePratibha [address], [place], [address], [place] - [facility] 09:36:47 Problem Notes None recorded. Procedures Surgical History Date Name Laterality Status Provider Name and Address Organization Details Recorded Time 12/10/19 24 Hysterectomy completed Zonia Valadez [place] - [facility] 06/26/2024 10:42:30 11/17/19 24 Adnexal surgery completed Zonia Valadez [place] - [facility] 07/05/2024 10:21:49 04/18/19 04 ENT Surgery completed Zonia Allyson [place] - [facility] 07/05/2024 10:21:49 Wrist arthroscopy/surge ry completed Zonia Girmaleman [place] - [facility] 06/26/2024 10:41:14 Elbow arthroscopy/surge ry completed Zonia Nathanman [place] - [facility] 06/26/2024 10:41:27 Ankle arthroscopy/surge ry completed Zonia Nathanman [place] - [facility] 06/26/2024 10:41:34 tonsillectomy completed Zonia Allyson [place] - [facility] 06/26/2024 10:41:45 adenoid excision completed Zonia Valadez [place] - [facility] 06/26/2024 10:41:59 Imaging Results None recorded. Procedure Notes None recorded. Medical Equipment None Reported. Medications Name Sig Start Date Stop Date Status Note LastModified by Organization Details LastModified Time methocarbam ol 500 mg tablet Take 2 tablets 3 times a day by oral route as needed for 30 days. 2024 active Not Available Not Available Not Avai lable naltrexone 50 mg tablet Take 1 tablet every day by oral route as directed. 2024 active Not Available Not Available Not Avai lable ondansetron 8 mg disintegrat ing tablet DISSOLVE ONE (1) TABLET ON TOP OF TONGUE TWICE DAILY NEEDED 2024 active Not Available Not Available Not Avai lable gabapentin 800 mg tablet Take 1 tablet 3 times a day by oral route as directed. active Not Available Not Available No t Available lithium carbonate 300 mg capsule Take 1 capsule twice a day by oral route as directed. active Not Available Not Available No t Available rizatriptan 10 mg disintegrat ing tablet Take 1 tablet as needed by oral route. 07/23 completed Not Available Not Available Not Available pantoprazol e 40 mg tablet,papito yed release Take 1 tablet every day by oral route in the morning for 30 days. 2024 active Not Available Not Available Not Avai lable ferrous sulfate 325 mg (65 mg iron) tablet Take 1 tablet 3 times a day by oral route for 30 days. 2024 active Not Available Not Available Not Avai lable vitamin B complex tablet Take 1 tablet every day by oral route for 30 days. 2024 active Not Available Not Available Not Avai lable albuterol sulfate HFA 90 mcg/actuati on aerosol inhaler Inhale 2 puffs every 4 hours by inhalatio n route. 2024 active Not Available Not Available Not Avai lable fluoxetine 20 mg capsule Take 1 capsule every day by oral route as directed. active Not Available Not Available No t Available Ubrelvy 100 mg tablet TAKE ONE (1) TABLET BY MOUTH NEEDED MAY REPEAT IN TWO HOURS IF NEEDED 2024 active Not Available Not Available Not Avai lable Caplyta 42 mg capsule Take 1 capsule every day by oral route as directed. active Not Available Not Available No t Available Qulipta 30 mg tablet active Not Available Not Available No t Available Vitals Date Recorded Body height Body mass index (BMI) Body weight Body temperature Heart rate Oxygen saturation Oxygen saturation in Arterial blood by Pulse oximetry Respiratory rate Pain severity - 0-10 verbal numeric rating [Score] - Reported Systolic And Diastolic Provider Name and Address Organization Details Last Updated DateTime 5 172.72 cm 36.9 kg/m2 577108. 15 g 98.2 [degF] 107 /min 99 % 99 % 18 /min 2 118/78 mm[Hg] Zonia Valadez [place] - [facility] 5 09:43:51 Date Recorded Body height Body mass index (BMI) Body weight Body temperature Heart rate Oxygen saturation Oxygen saturation in Arterial blood by Pulse oximetry Respiratory rate Pain severity - 0-10 verbal numeric rating [Score] - Reported Systolic And Diastolic Provider Name and Address Organization Details Last Updated DateTime 5 172.72 cm 35.8 kg/m2 648722. 61 g 98.2 [degF] 95 /min 99 % 99 % 18 /min 0 118/76 mm[Hg] Zonia Valdaez [place] - [facility] 5 13:06:37 Date Recorded Body height Body mass index (BMI) Body weight Body temperature Heart rate Oxygen saturation Oxygen saturation in Arterial blood by Pulse oximetry Respiratory rate Pain severity - 0-10 verbal numeric rating [Score] - Reported Systolic And Diastolic Provider Name and Address Organization Details Last Updated DateTime 5 172.72 cm 34.1 kg/m2 043463. 39 g 97.9 [degF] 100 /min 96 % 96 % 18 /min 4 122/80 mm[Hg] Zonia Valadez [place] - [facility] 5 10:40:01 Date Recorded Body height Body mass index (BMI) Body weight Body temperature Respiratory rate Oxygen saturation Oxygen saturation in Arterial blood by Pulse oximetry Heart rate Systolic And Diastolic Provider Name and Address Organization Details Last Updated DateTime 5 172.72 cm 33.7 kg/m2 590972. 01 g 97.2 [degF] 16 /min 99 % 99 % 78 /min 124/80 mm[Hg] Muna Patterson RN [address], [place], [address], [place] - [facility] 5 09:30:23 Date Recorded Body height Body mass index (BMI) Body weight Respiratory rate Pain severity - 0-10 verbal numeric rating [Score] - Reported Body temperature Heart rate Oxygen saturation Oxygen saturation in Arterial blood by Pulse oximetry Systolic And Diastolic Provider Name and Address Organization Details Last Updated DateTime 5 172.72 cm 33.3 kg/m2 89498.7 3 g 16 /min 8 97.2 [degF] 76 /min 99 % 99 % 118/78 mm[Hg] Muna Patterson RN [address], [place], [address], [place] - [facility] 5 08:42:43 Social History Question Answer Notes LastModified by Organizat ion Details LastModified Time Tobacco Smoking Status Never Smoker Zonia Allyson [facility], [place] - [facility] 06/26/2024 10:40:46 Do You Have [...] Or The Highest Degree You Have Received? [id number] Information not available 07/05/2024 What Was The [...] 07/05/2024 Are you able to care for yourself independently? Yes Information not available 07/05/2024 Do you or have you ever used e-cigarettes or vape? Never used electronic cigarettes Information not available 07/05/2024 What is your exercise level? Moderate Information not available 07/05/2024 Mental Status Question Answer Note LastModified by Organization D etails LastModified Time Do you feel stressed (tense, restless, nervous, or anxious, or unable to sleep at night)? [id number] Information not available 07/05/2024 Family History Relationship [...] 2024 10:21:24 Maternal Grandmother Malignant neoplasm of breast [email or web address] Not available 2024 10:21:24 Maternal Grandmother Malignant neoplasm of cervix uteri tfogleman Not available 10:21:24 Maternal Grandmother Malignant neoplasm of ovary [...] Diagnosis SNOMED-CT Code Diagnosis ICD10 Code Diagnosis IMO Codes Diagnosis Note [id number] Yahaira Pandey PA-C [facility] [address] [facility] [place] [address] 06/26/2024 10:21:46 06/26/2024 11:49:56 Carpal tunnel syndrome of left wrist 0944833301 03322 G56.02 [id number] Yahaira Pandey PA-C [facility] [address] [facility] [place] [address] 07/05/2024 10:06:00 07/05/2024 10:51:48 Migraine 77147022 G43.180 [id number] Yahaira Pandey PA-C [facility] [address] [place] [address] 07/23/2024 14:30:08 07/23/2024 16:24:57 Paresthesia 46109440 R20.2 09396 Migraine 00797476 G43.90 9 [id number] Yahaira Pandey PA-C [address] [address] 08/30/2024 09:35:23 08/30/2024 10:23:14 Iron deficiency 35240250 E61.1 9881 Body mass index 30+ - obesity 697671028 Z68.36 428282 Obesity 511351762 E66.9 Loss of hair 213693054 L 65.9 96404 Abdominal discomfort 433 80035 R10.9 457750 [id number] Yahaira Pandey PA-C [address] [address] 09/21/2024 13:01:04 09/21/2024 13:19:42 Pain of right knee joint 5566102720 94289 M25.561 517351 Pain of left wrist 89346 62756 06339 M25.532 901757 [id number] Yahaira Pandey PA-C [address] [address] 11/27/2024 10:24:37 11/27/2024 11:09:02 Fibromyalgia 674429781 M79.7 Obese class II 576115165 1 96366 E66.812 Z68.35 4032016 [id number] Yahaira Pandey PA-C [address] [address] 01/01/2025 09:20:56 01/01/2025 10:31:53 Fatigue 67396882 R53.83 [id number] [facility] 914415745 R06.02 01866 [id number] Yahaira Pandey PA-C [address] [address] 01/15/2025 08:36:22 01/15/2025 09:22:47 Leukocytosis 400234280 D72.829 118952 Pain of ri ght knee joint 9156163898 45363 M25.561 [id number] Health Concerns Section Related Observation LastModified by Organization Detai ls LastModified Time None Recorded Concern Status LastModified by Organization Details LastModified Time None Recorded Advance Directives Directive N: Payers Insurance Date Sequence Insurance Name Policy Number Policy Gaxiola Covered Member ID Gaxiola Member ID Guarantor Name 01/21/2025 1 [facility] (MEDICARE REPLACEMENT/A DVANTAGE - PPO) [id number] Pravin Ken [place] [id number] Pravin Haynes Notes Date Note Type Note Provider Name and Address Organization Details Recorded Time 08/30/2024 text/html ROS as noted in the HPI Pt is a 28 yo female with hx of iron deficiency. We are rechecking labs today.She is concerned about hair loss. She wants her hormones checked. SHe has 1 ovary remaining.She also has abdominal discomfort since having her hysterectomy 11/2023.Also has lesions on the R shoulder, posterior aspect. Yahaira Pandey PA-C [address], [place], [address], [facility] 08/30/2024 10:21:30 09/21/2024 text/html ROS as noted in the HPI Pt is a 28 yo female with R knee pain that worsened Sep [...] syndrome. Yahaira Pandey PA-C [address], [place], [address], [facility] 09/21/2024 13:22:52 11/27/2024 text/html ROS as noted in the HPI 29 yo female presents to discuss a new pain management referral. She was getting tizanidine but there was a contraindication with a psych medication she was put on. 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 In the mean time I will swicth her to methocarbamal until she can be seen. Yahaira Pandey PA-C [address], [place], [address], [facility] 11/27/2024 11:08:38 01/01/2025 text/html ROS as noted in the HPI Patient is a 29-year-old female who presents with fatigue that has been ongoing. She has had a sleep study this year which was normal per patient report. Will request a copy of that test. Her last labs 5 months ago were well within normal limits. Will repeat again today. She is on multiple medications for psychiatric disorders which may be contributing to her symptoms including gabapentin 800 mg 3 times a day and methocarbamol 3 times a day. She also reports occasional shortness of breath and feeling like she needs to take a deep breath. She tells me that she has been given albuterol inhalers in the past the 1 she has now is . She thinks that she has asthma. She denies coughing episodes or wheezing at night. She also reports a lump that is tender in the mons pubis. Has been there for about 2 weeks. Yahaira Pandey PA-C [address], [place], [address], [facility] 01/01/2025 10:34:03 01/15/2025 text/html ROS as noted in the HPI Pravin is a 29 yo female who presents for repeat CBC. At her last visit she had a slight elevation. She did not have signs or symptoms of infection. Feels well today. She also continues to have R knee. She was seen for this 3 months ago, but failed to go to PT. She is willing now. Yahaira Pandey PA-C [address], [place], [address], [facility] 01/15/2025 09:04:23 OBGyn Episode No OBEpisode recorded.
--- OUTSIDE RECORDS SUMMARY | 2025-01-31 20:17 | XMS_ITS | Continuity of Care Document ---
Author Organization [facility], [facility] Address [address] [place] [address] Assessment No assessment recorded. Plan of Treatment Reminders Order Date Submit Date Provider Last Modified By Organization Details Last Modified Time Details Appointments None recorded. Lab vitamin D, 25-hydroxy , total, serum 2024 025 [facility], [address], [address], [place], [address], 5 07:14:39 iron + total iron-keith ng capacity (TIBC), serum 2024 025 [facility]I [facility], [address], [address] [address], [place], [address], 5 07:14:38 ferritin, serum or plasma 2024 025 [facility]I [facility], [address], [address] [address], [place], [address], 5 07:14:40 CBC w/ auto diff 2024 025 [facility], [address], [address] [address], [place], [address], 5 07:14:37 vitamin B12, serum 2024 025 [facility], [address], [address] [address], [place], [address], 5 07:14:40 TSH, ultra-sens itive, serum 2024 025 [facility], [address], [address] [address], [place], [address], 07:14:39 BMP, serum or plasma 2024 025 [facility]I [facility], [address], [address] [address], [place], [address], 07:14:38 Referral None recorded. Procedures None recorded. Surgeries None recorded. Imaging None recorded. Medication Orders albuterol sulfate HFA 90 mcg/actuat ion aerosol inhaler 2024 025 [place] [facility], [address], [place], [address], 09:43:40 Patient TargetsNo targets recorded. Patient Instructions Encounter Date Encounter Id Patient Instructions Last Modified By Organization Details Last Modified Time 01/01/2025 [id number] complete PFT w/ post bronchodilator spirometry* KERI Not available 01/11/2025 09:04:59 Will follow-up o n labs and PFTs. The tenderness over the mons pubis is the likely insertion points of musculature. I do not feel any abnormalities there. Reassurance given. ehimes Not available 01/01/2025 10:33:58 Reason for Referral None Reported. Results Created Date Observation Date Name Description Value Unit Range Abnormal Flag Note LastModifiedBy Organization Detail LastModifiedTime 01/02/2001/02/2025 CBC WITH DIFFE RENTI AL/PL ATELE T WBC 14.0 x10e3 /uL 3.4-10 .8 above high normal Not Available [facility] ([facility]) [address] [facility], [place], [address], 01/02/2025 07:14:37 01/02/2001/02/2025 CBC WITH DIFFE RENTI AL/PL ATELE T RBC 4.66 x10e6 /uL 3.77-5 .28 normal Not Available [facility] ([facility]) [address] [facility], [place], [address], 01/02/2025 07:14:37 01/02/20 25 01/02/2025 CBC WITH DIFFE RENTI AL/PL ATELE T hemoglobin 13.6 g/dL 11.1-1 5.9 normal Not Available [facility] ([facility]) [address] [place], [address], 01/02/2025 07:14:37 01/02/2001/02/2025 CBC WITH DIFFE RENTI AL/PL ATELE T hematocrit 42.9 % 34.0-4 6.6 normal Not Available [facility] ([facility]) [address] [place], [address], 01/02/2025 07:14:37 01/02/2001/02/2025 CBC WITH DIFFE RENTI AL/PL ATELE T MCV 92 fL 79-97 normal Not Available [facility] ([facility]) [address] [place], [address], 01/02/2025 07:14:37 01/02/2001/02/2025 CBC WITH DIFFE RENTI AL/PL ATELE T MCH 29.2 pg 26.6-3 3.0 normal Not Available [facility] ([facility]) [address] [place], [address], 01/02/2025 07:14:37 01/02/2001/02/2025 CBC WITH DIFFE RENTI AL/PL ATELE T MCHC 31.7 g/dL 31.5-3 5.7 normal Not Available [facility] ([facility]) [address] [place], [address], 01/02/2025 07:14:37 01/02/2001/02/2025 CBC WITH DIFFE RENTI AL/PL ATELE T RDW 12.6 % 11.7-1 5.4 Not Available [facility] ([facility]) [address] [place], [address], 01/02/2025 07:14:37 01/02/2001/02/2025 CBC WITH DIFFE RENTI AL/PL ATELE T platelets 402 x10e3 /uL 150-45 0 normal Not Available [facility] ([facility]) [address] [facility], [place], [address], 01/02/2025 07:14:37 01/02/2001/02/2025 CBC WITH DIFFE RENTI AL/PL ATELE T neutrophils 62 % not estab. normal Not Available [facility] ([facility]) [address] [facility], [place], [address], 01/02/2025 07:14:37 01/02/2001/02/2025 CBC WITH DIFFE RENTI AL/PL ATELE T lymphs 29 % not estab. normal Not Available [facility] ([facility]) [address] [facility], [place], [address], 01/02/2025 07:14:37 01/02/2001/02/2025 CBC WITH DIFFE RENTI AL/PL ATELE T monocytes 6 % not estab. normal Not Available [facility] ([facility]) [address] [facility], [place], [address], 01/02/2025 07:14:37 01/02/2001/02/2025 CBC WITH DIFFE RENTI AL/PL ATELE T eos 2 % not estab. normal Not Available [facility] ([facility]) [address] [facility], [place], [address], 01/02/2025 07:14:37 01/02/2001/02/2025 CBC WITH DIFFE RENTI AL/PL ATELE T basos 1 % not estab. normal Not Available [facility] ([facility]) [address] [facility], [place], [address], 01/02/2025 07:14:37 01/02/20 25 01/02/2025 CBC WITH DIFFE RENTI AL/PL ATELE T immature cells BILLET CUTTER Not Available [facility] ([facility]) [address] [place], [address], 01/02/2025 07:14:37 01/02/20 25 01/02/2025 CBC WITH DIFFE RENTI AL/PL ATELE T neutrophils (absolute) 8.6 x10e3 /uL 1.4-7. 0 above high normal Not Available [facility] ([facility]) [address] [place], [address], 01/02/2025 07:14:37 01/02/2001/02/2025 CBC WITH DIFFE RENTI AL/PL ATELE T lymphs (absolute) 4.0 x10e3 /uL 0.7-3. 1 above high normal Not Available [facility] ([facility]) [address] [place], [address], 01/02/2025 07:14:37 01/02/20 25 01/02/2025 CBC WITH DIFFE RENTI AL/PL ATELE T monocytes(ab solute) 0.9 x10e3 /uL 0.1-0. 9 normal Not Available [facility] ([facility]) [address] [place], [address], 01/02/2025 07:14:37 01/02/20 25 01/02/2025 CBC WITH DIFFE RENTI AL/PL ATELE T eos (absolute) 0.3 x10e3 /uL 0.0-0. 4 normal Not Available [facility] ([facility]) [address] [place], [address], 01/02/2025 07:14:37 01/02/20 25 01/02/2025 CBC WITH DIFFE RENTI AL/PL ATELE T baso (absolute) 0.1 x10e3 /uL 0.0-0. 2 normal Not Available [facility] ([facility]) [address] [place], [address], 01/02/2025 07:14:37 01/02/20 25 01/02/2025 CBC WITH DIFFE RENTI AL/PL ATELE T immature granulocytes 0 % not estab. Not Available [facility] ([facility]) [address] [facility], [place], [address], 01/02/2025 07:14:37 01/02/20 25 01/02/2025 CBC WITH DIFFE RENTI AL/PL ATELE T immature grans (abs) 0.0 x10e3 /uL 0.0-0. 1 Not Available [facility] ([facility]) [address] [facility], [place], [address], 01/02/2025 07:14:37 01/02/20 25 01/02/2025 CBC WITH DIFFE RENTI AL/PL ATELE T NRBC BILLET CUTTER Not Available [facility] ([facility]) [address] [facility], [place], [address], 01/02/2025 07:14:37 01/02/2001/02/2025 CBC WITH DIFFE RENTI AL/PL ATELE T hematology comments: BILLET CUTTER Not Available [facility] ([facility]) [address] [facility], [place], [address], 01/02/2025 07:14:37 01/02/20 25 01/02/2025 BASIC METAB OLIC PANEL (8) glucose 84 mg/dL 70-99 normal Not Available [facility] ([facility]) [address] [place], [address], 01/02/2025 07:14:38 01/02/2001/02/2025 BASIC METAB OLIC PANEL (8) BUN 8 mg/dL 6-20 normal Not Available [facility] ([facility]) [address] [place], [address], 01/02/2025 07:14:38 01/02/20 25 01/02/2025 BASIC METAB OLIC PANEL (8) creatinine 0.91 mg/dL 0.57-1 .00 normal Not Available [facility] ([facility]) [address] [place], [address], 01/02/2025 07:14:38 01/02/2001/02/2025 BASIC METAB OLIC PANEL (8) eGFR 88 mL/mi n/1.7 3 >59 normal Not Available [facility] ([facility]) [address] [place], [address], 01/02/2025 07:14:38 01/02/2001/02/2025 BASIC METAB OLIC PANEL (8) BUN/creatini ne ratio 9 9-23 normal Not Available [facility] ([facility]) [address] [facility], [place], [address], 01/02/2025 07:14:38 01/02/2001/02/2025 BASIC METAB OLIC PANEL (8) sodium 139 mmol/ L 134-14 4 normal Not Available [facility] ([facility]) [address] [place], [address], 01/02/2025 07:14:38 01/02/2001/02/2025 BASIC METAB OLIC PANEL (8) potassium 4.2 mmol/ L 3.5-5. 2 normal Not Available [facility] ([facility]) [address] [place], [address], 01/02/2025 07:14:38 01/02/2001/02/2025 BASIC METAB OLIC PANEL (8) chloride 108 mmol/ L 96-106 above high normal Not Available [facility] ([facility]) [address] [place], [address], 01/02/2025 07:14:38 01/02/20 25 01/02/2025 BASIC METAB OLIC PANEL (8) carbon dioxide, total 17 mmol/ L 20-29 below low normal Not Available [facility] ([facility]) [address] [facility], [place], [address], 01/02/2025 07:14:38 01/02/2001/02/2025 BASIC METAB OLIC PANEL (8) calcium 9.4 mg/dL 8.7-10 .2 normal Not Available [facility] ([facility]) [address] [facility], [place], [address], 01/02/2025 07:14:38 01/02/2001/02/2025 IRON AND TIBC iron bind.cap.(TI BC) 330 ug/dL 250-45 0 normal Not Available [facility] ([facility]) [address] [facility], [place], [address], 01/02/2025 07:14:38 01/02/2001/02/2025 IRON AND TIBC UIBC 277 ug/dL 131-42 5 normal Not Available [facility] ([facility]) [address] [facility], [place], [address], 01/02/2025 07:14:38 01/02/2001/02/2025 IRON AND TIBC iron 53 ug/dL 27-159 normal Not Available [facility] ([facility]) [address] [facility], [place], [address], 01/02/2025 07:14:38 01/02/2001/02/2025 IRON AND TIBC iron saturation 16 % 15-55 normal Not Available [facility] ([facility]) [address] [place], [address], 01/02/2025 07:14:38 01/02/2001/02/2025 TSH TSH 2.250 uIU/m L 0.450- 4.500 normal Not Available [facility] ([facility]) [address] [place], [address], 01/02/2025 07:14:39 01/02/2001/02/2025 VITAM IN D, 25-HY [...] IOM (Inst itute of Medic ine). 2010. Veronica ry refer ence zak es for calci um and D. Kelsey rashid [place]: [facility] . 2. Jammie pelaez MF, Leena friedman [place], Parish off-F errar i ROJO, et al. Evalu ation , treat ment, and preve ntion of vitam in D defic iency : an Endoc rine Socie ty clini sully pract ice guide line. JCEM. 2010; 96(7) :1911 -30. Not Available [facility] ([facility]) [address] [facility], [place], [address], 01/02/2025 07:14:39 01/02/20 25 01/02/2025 VITAM IN B12 vitamin B12 438 pg/mL 232-12 45 normal Not Available [facility] ([facility]) [address] [place], [address], 01/02/2025 07:14:40 01/02/20 25 01/02/2025 CHRIS TIN ferritin 60 NG/mL 15-150 normal Not Available [facility] ([facility]) [address] [facility], [place], [address], 01/02/2025 07:14:40 01/02/20 25 09/18/2024 home sleep testi wilton (PROC ) No observ ation record ed. [facility] (Med Record) [address], [place], [address], 01/01/2025 11:47:39 01/12/20 25 01/02/2025 compl ete PFT w/ post [facility] hodil ator jelly metry * No observ ation record ed. [facility] (Medical Records) [address] [place], [address], 01/14/2025 13:35:25 Result Notes None recorded. Problems Name Problem SNOMED Code Status Onset Date Resolution Date Notes Provider Name and Address Organization Details Recorded Time Fibromyalgia 444111836 Active 2024 Yahaira Pandey PA-C [address], [place], [address], [place] - [facility] 5 11:12:18 Obsessive-comp ulsive disorder 462955283 Active 2024 Yahaira Pandey PA-C [address], [place], [address], [place] - [facility] 5 11:12:28 Bipolar disorder 73250831 Active 2024 Yahaira Pandey PA-C [address], [place], [address], [place] [facility] 5 11:12:36 Migraine 97017458 Active 2024 Yahaira Pandey PA-C [address], [place], [address], [place] [facility] 5 11:12:44 Iron deficiency 88030124 Active 2024 Yahaira Pandey PA-C [address], [place], [address], [place] - [facility] 5 09:36:47 Problem Notes None recorded. Procedures Surgical History Date Name Laterality Status Provider Name and Address Organization Details Recorded Time 12/10/19 24 Hysterectomy completed Zonia Valadez [place] - [facility] 06/26/2024 10:42:30 11/17/19 24 Adnexal surgery completed Zonia [place] - [facility] 07/05/2024 10:21:49 04/18/19 04 ENT Surgery completed Zonia Fogleman [place] - [facility] 07/05/2024 10:21:49 Wrist arthroscopy/surge [...] Organization Details Last Updated DateTime 172.72 cm 33.7 kg/m2 596135. 01 g 97.2 [degF] 16 /min 99 % 99 % 78 /min 124/80 mm[Hg] Muna Patterson RN [address], [place], [address], [place] - [facility] 5 09:30:23 Social History Question Answer Notes LastModified by Organizat ion Details LastModified Time Tobacco Smoking Status Never Smoker Zonia Valadez [place], [place] - [facility] 06/26/2024 10:40:46 Do You [...] Or The Highest Degree You Have Received? [id number] Information not available 07/05/2024 What Was The [...] anxious, or unable to sleep at night)? [id number] Information not available 07/05/2024 Family History Relationship [...] ICD10 Code Diagnosis IMO Codes Diagnosis Note [id number] Yahaira Pandey PA-C [facility] [address] [place] [address] 01/01/2025 09:20:56 01/01/2025 10:31:53 Fatigue 42692295 R53.83 [id number] Dyspnea 616749259 R06.02 09297 Health Concerns Section Related Observation LastModified by Organization Detai ls LastModified Time None Recorded Concern Status LastModified by Organization Details LastModified Time None Recorded Payers Encounter Date Sequence Insurance Name Policy Number Policy Gaxiola Covered Member ID Gaxiola Member ID Guarantor Name 01/01/2025 1 [facility] (MEDICARE REPLACEMENT/A DVANTAGE - PPO) [id number] Pravin Ken Haynes [id number] Pravin Haynes Notes Date Note Type Note Provider Name and Address Organization Details Recorded Time 01/01/2025 text/html ROS as noted in the [...] weeks. Yahaira Pandey PA-C [address], [place], [address], [place] - [facility] 01/01/2025 10:34:03 OBGyn Episode No OBEpisode recorded.
--- OUTSIDE RECORDS SUMMARY | 2025-01-31 20:17 | XMS_ITS | Continuity of Care Document ---
Author Organization [facility] Address [address] [place] [address] Assessment No assessment recorded. Plan of Treatment Reminders Order Date Submit Date Provider Last Modified By Organization Details Last Modified Time Details Appointments None recorded. Lab CBC w/ auto diff 2024 025 NAPLES [facility], [address], Darnell Amol, [place], [address], 04:10:48 Referral physical therapist referral 2024 025 [email or web address] [facility], [facility] Mukul Zheng, [place], [address], 10:04:47 Procedures None recorded. Surgeries None recorded. Imaging None recorded. Medication Orders None recorded. Patient TargetsNo targets recorded. Patient InstructionsNo instructions recorded. Reason for Referral Physical Therapist Referral for Pain of right knee joint Referring Physician: Yahaira Pandey, Family Medicine, Encounter Date: 01/15/2025 Results Created Date Observation Date Name Description Value Unit Range Abnormal Flag Note LastModifiedBy Organization Detail LastModifiedTime 01/02/2001/02/2025 CBC WITH DIFFE RENTI AL/PL ATELE T WBC 14.0 x10e3 /uL 3.4-10 .8 above high normal Not Available [facility] ([facility]) [address] [facility], [place], [address], 01/02/2025 07:14:37 01/02/2001/02/2025 CBC WITH DIFFE RENTI AL/PL ATELE T RBC 4.66 x10e6 /uL 3.77-5 .28 normal Not Available [facility] ([facility]) [address] [place], [address], 01/02/2025 07:14:37 01/02/2001/02/2025 CBC WITH DIFFE RENTI AL/PL ATELE T hemoglobin 13.6 g/dL 11.1-1 5.9 normal Not Available [facility] ([facility]) [address] [place], [address], 01/02/2025 07:14:37 01/02/2001/02/2025 CBC WITH DIFFE RENTI AL/PL ATELE T hematocrit 42.9 % 34.0-4 6.6 normal Not Available [facility] ([facility]) [address] [place], [address], 01/02/2025 07:14:37 01/02/2001/02/2025 CBC WITH DIFFE RENTI AL/PL ATELE T MCV 92 fL 79-97 normal Not Available [facility] ([facility]) [address] [place], [address], 01/02/2025 07:14:37 01/02/2001/02/2025 CBC WITH DIFFE RENTI AL/PL ATELE T MCH 29.2 pg 26.6-3 3.0 normal Not Available [facility] ([facility]) [address] [place], [address], 01/02/2025 07:14:37 01/02/2001/02/2025 CBC WITH DIFFE RENTI AL/PL ATELE T MCHC 31.7 g/dL 31.5-3 5.7 normal Not Available [facility] ([facility]) [address] [place], [address], 01/02/2025 07:14:37 01/02/2001/02/2025 CBC WITH DIFFE RENTI AL/PL ATELE T RDW 12.6 % 11.7-1 5.4 Not Available [facility] ([facility]) [address] [facility], [place], [address], 01/02/2025 07:14:37 01/02/20 25 01/02/2025 CBC WITH DIFFE RENTI AL/PL ATELE T platelets 402 x10e3 /uL 150-45 0 normal Not Available [facility] ([facility]) [address] [facility], [place], [address], 01/02/2025 07:14:37 01/02/2001/02/2025 CBC WITH DIFFE RENTI AL/PL ATELE T neutrophils 62 % not estab. normal Not Available [facility] ([facility]) [address] [facility], [place], [address], 01/02/2025 07:14:37 01/02/20 25 01/02/2025 CBC WITH DIFFE RENTI AL/PL ATELE T lymphs 29 % not estab. normal Not Available [facility] ([facility]) [address] [facility], [place], [address], 01/02/2025 07:14:37 01/02/2001/02/2025 CBC WITH DIFFE RENTI AL/PL ATELE T monocytes 6 % not estab. normal Not Available [facility] ([facility]) [address] [facility], [place], [address], 01/02/2025 07:14:37 01/02/2001/02/2025 CBC WITH DIFFE RENTI AL/PL ATELE T eos 2 % not estab. normal Not Available [facility] ([facility]) [address] [facility], [place], [address], 01/02/2025 07:14:37 01/02/20 25 01/02/2025 CBC WITH DIFFE RENTI AL/PL ATELE T basos 1 % not estab. normal Not Available [facility] ([facility]) [address] [facility], [place], [address], 01/02/2025 07:14:37 01/02/20 25 01/02/2025 CBC WITH DIFFE RENTI AL/PL ATELE T immature cells CAPTAIN/CHECK AIRMAN Not Available [facility] ([facility]) [address] [facility], [place], [address], 01/02/2025 07:14:37 01/02/20 25 01/02/2025 CBC WITH DIFFE RENTI AL/PL ATELE T neutrophils (absolute) 8.6 x10e3 /uL 1.4-7. 0 above high normal Not Available [facility] ([facility]) [address] [facility], [place], [address], 01/02/2025 07:14:37 01/02/20 25 01/02/2025 CBC WITH DIFFE RENTI AL/PL ATELE T lymphs (absolute) 4.0 x10e3 /uL 0.7-3. 1 above high normal Not Available [facility] ([facility]) [address] [facility], [place], [address], 01/02/2025 07:14:37 01/02/20 25 01/02/2025 CBC WITH DIFFE RENTI AL/PL ATELE T monocytes(ab solute) 0.9 x10e3 /uL 0.1-0. 9 normal Not Available [facility] ([facility]) [address] [place], [address], 01/02/2025 07:14:37 01/02/20 25 01/02/2025 CBC WITH DIFFE RENTI AL/PL ATELE T eos (absolute) 0.3 x10e3 /uL 0.0-0. 4 normal Not Available [facility] ([facility]) [address] [place], [address], 01/02/2025 07:14:37 01/02/20 25 01/02/2025 CBC WITH DIFFE RENTI AL/PL ATELE T baso (absolute) 0.1 x10e3 /uL 0.0-0. 2 normal Not Available [facility] ([facility]) [address] [facility], [place], [address], 01/02/2025 07:14:37 01/02/20 25 01/02/2025 CBC WITH DIFFE RENTI AL/PL ATELE T immature granulocytes 0 % not estab. Not Available [facility] ([facility]) [address] [facility], [place], [address], 01/02/2025 07:14:37 01/02/20 25 01/02/2025 CBC WITH DIFFE RENTI AL/PL ATELE T immature grans (abs) 0.0 x10e3 /uL 0.0-0. 1 Not Available [facility] ([facility]) [address] [place], [address], 01/02/2025 07:14:37 01/02/20 25 01/02/2025 CBC WITH DIFFE RENTI AL/PL ATELE T NRBC CAPTAIN/CHECK AIRMAN Not Available [facility] ([facility]) [address] [place], [address], 01/02/2025 07:14:37 01/02/20 25 01/02/2025 CBC WITH DIFFE RENTI AL/PL ATELE T hematology comments: CAPTAIN/CHECK AIRMAN Not Available [facility] ([facility]) [address] [place], [address], 01/02/2025 07:14:37 01/02/20 25 01/02/2025 BASIC METAB OLIC PANEL (8) glucose 84 mg/dL 70-99 normal Not Available [facility] ([facility]) [address] [place], [address], 01/02/2025 07:14:38 01/02/20 25 01/02/2025 BASIC METAB OLIC PANEL (8) BUN 8 mg/dL 6-20 normal Not Available [facility] ([facility]) [address] [place], [address], 01/02/2025 07:14:38 01/02/2001/02/2025 BASIC METAB OLIC PANEL (8) creatinine 0.91 mg/dL 0.57-1 .00 normal Not Available [facility] ([facility]) [address] [place], [address], 01/02/2025 07:14:38 01/02/20 25 01/02/2025 BASIC METAB OLIC PANEL (8) eGFR 88 mL/mi n/1.7 3 >59 normal Not Available [facility] ([facility]) [address] [place], [address], 01/02/2025 07:14:38 01/02/20 25 01/02/2025 BASIC METAB OLIC PANEL (8) BUN/creatini ne ratio 9 9-23 normal Not Available [facility] ([facility]) [address] [facility], [place], [address], 01/02/2025 07:14:38 01/02/2001/02/2025 BASIC METAB OLIC PANEL (8) sodium 139 mmol/ L 134-14 4 normal Not Available [facility] ([facility]) [address] [place], [address], 01/02/2025 07:14:38 01/02/2001/02/2025 BASIC METAB OLIC PANEL (8) potassium 4.2 mmol/ L 3.5-5. 2 normal Not Available [facility] ([facility]) [address] [place], [address], 01/02/2025 07:14:38 01/02/2001/02/2025 BASIC METAB OLIC PANEL (8) chloride 108 mmol/ L 96-106 above high normal Not Available [facility] ([facility]) [address] [place], [address], 01/02/2025 07:14:38 01/02/20 25 01/02/2025 BASIC METAB OLIC PANEL (8) carbon dioxide, total 17 mmol/ L 20-29 below low normal Not Available [facility] ([facility]) [address] [place], [address], 01/02/2025 07:14:38 01/02/20 25 01/02/2025 BASIC METAB OLIC PANEL (8) calcium 9.4 mg/dL 8.7-10 .2 normal Not Available [facility] ([facility]) [address] [place], [address], 01/02/2025 07:14:38 01/02/20 25 01/02/2025 IRON AND TIBC iron bind.cap.(TI BC) 330 ug/dL 250-45 0 normal Not Available [facility] ([facility]) [address] [place], [address], 01/02/2025 07:14:38 01/02/20 25 01/02/2025 IRON AND TIBC UIBC 277 ug/dL 131-42 5 normal Not Available [facility] ([facility]) [address] [place], [address], 01/02/2025 07:14:38 01/02/20 25 01/02/2025 IRON AND TIBC iron 53 ug/dL 27-159 normal Not Available [facility] ([facility]) [address] [place], [address], 01/02/2025 07:14:38 01/02/20 25 01/02/2025 IRON AND TIBC iron saturation 16 % 15-55 normal Not Available [facility] ([facility]) [address] [place], [address], 01/02/2025 07:14:38 01/02/20 25 01/02/2025 TSH TSH 2.250 uIU/m L 0.450- 4.500 normal Not Available [facility] ([facility]) [address] [facility], [place], [address], 01/02/2025 07:14:39 01/02/2001/02/2025 VITAM IN D, 25-HY [...] Medic ine). 2010. Dieta ry refer ence intak es for calci um and D. Kelsey rashid [place]: [facility] . 2. Jammie pelaez MF, Leena friedman [place], Parish off-F salvador i ROJO, et al. Evalu ation , treat ment, and preve ntion of vitam in D defic iency : an Endoc rine Socie ty clini sully pract ice guide line. JCEM. 2010; 96(7) :1911 -30. Not Available [facility] ([facility]) [address] [facility], [place], [address], 01/02/2025 07:14:39 01/02/2001/02/2025 VITAM IN B12 vitamin B12 438 pg/mL 232-12 45 normal Not Available [facility] ([facility]) [address] [facility], [place], [address], 01/02/2025 07:14:40 01/02/20 25 01/02/2025 CHRIS TIN ferritin 60 NG/mL 15-150 normal Not Available [facility] ([facility]) [address] [facility], [place], [address], 01/02/2025 07:14:40 01/16/20 25 01/16/2025 CBC WITH DIFFE RENTI AL/PL ATELE T WBC 13.0 x10e3 /uL 3.4-10 .8 above high normal Not Available [facility] ([facility]) [address] [facility], [place], [address], 01/16/2025 04:10:48 01/16/20 25 01/16/2025 CBC WITH DIFFE RENTI AL/PL ATELE T RBC 4.64 x10e6 /uL 3.77-5 .28 normal Not Available [facility] ([facility]) [address] [facility], [place], [address], 01/16/2025 04:10:48 01/16/20 25 01/16/2025 CBC WITH DIFFE RENTI AL/PL ATELE T hemoglobin 13.5 g/dL 11.1-1 5.9 normal Not Available [facility] ([facility]) [address] [facility], [place], [address], 01/16/2025 04:10:48 01/16/20 25 01/16/2025 CBC WITH DIFFE RENTI AL/PL ATELE T hematocrit 43.8 % 34.0-4 6.6 normal Not Available [facility] ([facility]) [address] [facility], [place], [address], 01/16/2025 04:10:48 01/16/20 25 01/16/2025 CBC WITH DIFFE RENTI AL/PL ATELE T MCV 94 fL 79-97 normal Not Available [facility] ([facility]) [address] [place], [address], 01/16/2025 04:10:48 01/16/20 25 01/16/2025 CBC WITH DIFFE RENTI AL/PL ATELE T MCH 29.1 pg 26.6-3 3.0 normal Not Available [facility] ([facility]) [address] [place], [address], 01/16/2025 04:10:48 01/16/20 25 01/16/2025 CBC WITH DIFFE RENTI AL/PL ATELE T MCHC 30.8 g/dL 31.5-3 5.7 below low normal Not Available [facility] ([facility]) [address] [facility], [place], [address], 01/16/2025 04:10:48 01/16/20 25 01/16/2025 CBC WITH DIFFE RENTI AL/PL ATELE T RDW 12.6 % 11.7-1 5.4 Not Available [facility] ([facility]) [address] [place], [address], 01/16/2025 04:10:48 01/16/20 25 01/16/2025 CBC WITH DIFFE RENTI AL/PL ATELE T platelets 416 x10e3 /uL 150-45 0 normal Not Available [facility] ([facility]) [address] [place], [address], 01/16/2025 04:10:48 01/16/20 25 01/16/2025 CBC WITH DIFFE RENTI AL/PL ATELE T neutrophils 69 % not estab. normal Not Available [facility] ([facility]) [address] [facility], [place], [address], 01/16/2025 04:10:48 01/16/20 25 01/16/2025 CBC WITH DIFFE RENTI AL/PL ATELE T lymphs 23 % not estab. normal Not Available [facility] ([facility]) [address] [place], [address], 01/16/2025 04:10:48 01/16/20 25 01/16/2025 CBC WITH DIFFE RENTI AL/PL ATELE T monocytes 5 % not estab. normal Not Available [facility] ([facility]) [address] [place], [address], 01/16/2025 04:10:48 01/16/20 25 01/16/2025 CBC WITH DIFFE RENTI AL/PL ATELE T eos 2 % not estab. normal Not Available [facility] ([facility]) [address] [facility], [place], [address], 01/16/2025 04:10:48 01/16/20 25 01/16/2025 CBC WITH DIFFE RENTI AL/PL ATELE T basos 1 % not estab. normal Not Available [facility] ([facility]) [address] [facility], [place], [address], 01/16/2025 04:10:48 01/16/20 25 01/16/2025 CBC WITH DIFFE RENTI AL/PL ATELE T immature cells CAPTAIN/CHECK AIRMAN Not Available [facility] ([facility]) [address] [place], [address], 01/16/2025 04:10:48 01/16/20 25 01/16/2025 CBC WITH DIFFE RENTI AL/PL ATELE T neutrophils (absolute) 8.8 x10e3 /uL 1.4-7. 0 above high normal Not Available [facility] ([facility]) [address] [place], [address], 01/16/2025 04:10:48 01/16/20 25 01/16/2025 CBC WITH DIFFE RENTI AL/PL ATELE T lymphs (absolute) 3.0 x10e3 /uL 0.7-3. 1 normal Not Available [facility] ([facility]) [address] [place], [address], 01/16/2025 04:10:48 01/16/20 25 01/16/2025 CBC WITH DIFFE RENTI AL/PL ATELE T monocytes(ab solute) 0.7 x10e3 /uL 0.1-0. 9 normal Not Available [facility] ([facility]) [address] [place], [address], 01/16/2025 04:10:48 01/16/20 25 01/16/2025 CBC WITH DIFFE RENTI AL/PL ATELE T eos (absolute) 0.3 x10e3 /uL 0.0-0. 4 normal Not Available [facility] ([facility]) [address] [facility], [place], [address], 01/16/2025 04:10:48 01/16/20 25 01/16/2025 CBC WITH DIFFE RENTI AL/PL ATELE T baso (absolute) 0.1 x10e3 /uL 0.0-0. 2 normal Not Available [facility] ([facility]) [address] [facility], [place], [address], 01/16/2025 04:10:48 01/16/20 25 01/16/2025 CBC WITH DIFFE RENTI AL/PL ATELE T immature granulocytes 0 % not estab. Not Available [facility] ([facility]) [address] [facility], [place], [address], 01/16/2025 04:10:48 01/16/20 25 01/16/2025 CBC WITH DIFFE RENTI AL/PL ATELE T immature grans (abs) 0.0 x10e3 /uL 0.0-0. 1 Not Available [facility] ([facility]) [address] [facility], [place], [address], 01/16/2025 04:10:48 01/16/20 25 01/16/2025 CBC WITH DIFFE RENTI AL/PL ATELE T NRBC CAPTAIN/CHECK AIRMAN Not Available [facility] ([facility]) [address] [facility], [place], [address], 01/16/2025 04:10:48 01/16/20 25 01/16/2025 CBC WITH DIFFE RENTI AL/PL ATELE T hematology comments: CAPTAIN/CHECK AIRMAN Not Available [facility] ([facility]) [address] [facility], [place], [address], 01/16/2025 04:10:48 09/1609/18/2024 home sleep testi ng (PROC ) No observ ation record ed. [facility] (Med Record) [address], [place], [address], 01/01/2025 11:47:39 01/12/20 25 01/02/2025 compl ete PFT w/ post cox monett hodil ator jelly metry * No observ ation record ed. [facility] (Medical Records) [facility] , [place], [address], 01/14/2025 13:35:25 Result Notes None recorded. Problems Name Problem SNOMED Code Status Onset Date Resolution Date Notes Provider Name and Address Organization Details Recorded Time Fibromyalgia 574511917 Active 2024 Yahaira Pandey PA-C [address], [place], [address], [place] - [facility] 5 11:12:18 Obsessive-comp ulsive disorder 947933886 Active 2024 Yahaira Pandey PA-C [address], [place], [address], [place] - [facility] 5 11:12:28 Bipolar disorder 10081001 Active 2024 Yahaira Pandey PA-C [address], [place], [address], [place] - [facility] 5 11:12:36 Migraine 86026280 Active 2024 Yahaira Pandey PA-C [address], [place], [address], [place] [facility] 5 11:12:44 Iron deficiency 56323091 Active 2024 Yahaira Pandey PA-C [address], [place], [address], [place] [facility] 09:36:47 Problem Notes None recorded. Procedures Surgical History Date Name Laterality Status Provider Name and Address Organization Details Recorded Time 12/10/19 24 Hysterectomy completed Zonia Valadez [place] - [facility] 06/26/2024 10:42:30 11/17/19 24 Adnexal surgery completed Zonia Valadez [place] - [facility] 07/05/2024 10:21:49 04/18/19 04 ENT Surgery completed Zonia [place] - [facility] 07/05/2024 10:21:49 Wrist arthroscopy/surge ry [...] Updated DateTime 5 172.72 cm 33.3 kg/m2 57868.7 3 g 16 /min 8 97.2 [degF] 76 /min 99 % 99 % 118/78 mm[Hg] Muna Patterson RN [address], [place], [address] [place] - [facility] 08:42:43 Social History Question Answer Notes LastModified by Organizat ion Details LastModified Time Tobacco Smoking Status Never Smoker Zonia Valadez [place], [place] - [facility] 06/26/2024 10:40:46 Do You [...] Or The Highest Degree You Have Received? [id number] Information not available 07/05/2024 What Was The [...] anxious, or unable to sleep at night)? [id number] Information not available 07/05/2024 Family History Relationship [...] ICD10 Code Diagnosis IMO Codes Diagnosis Note [id number] Yahaira Pandey PA-C [facility] [address] [place] [address] 01/01/2025 09:20:56 01/01/2025 10:31:53 Fatigue 38599847 R53.83 [id number] [facility] [id number] R06.02 322[address] [id number] Yahaira Pandey PA-C [facility] [address] [place] [address] 01/15/2025 08:36:22 01/15/2025 09:22:47 Leukocytosis 987404659 D72.829 030487 Pain of ri ght knee joint 9993567908 01765 M25.561 [id number] Health Concerns Section Related Observation LastModified by Organization Detai ls LastModified Time None Recorded Concern Status LastModified by Organization Details LastModified Time None Recorded Payers Encounter Date Sequence Insurance Name Policy Number Policy Gaxiola Covered Member ID Gaxiola Member ID Guarantor Name 01/15/2025 1 [facility] (MEDICARE REPLACEMENT/A DVANTAGE - PPO) RICH Haynes [id number] Pravin Haynes Notes Date Note Type Note Provider Name and Address Organization Details Recorded Time 01/15/2025 text/html ROS as noted in the [...] She is willing now. Yahaira Pandey PA-C [facility] [address], [place], [address], [facility] - [facility] 01/15/2025 09:04:23 OBGyn Episode No OBEpisode recorded.
== END ==
LOC: SL 20:16
PROVIDERS: PCP Physician Assistant Medical; Visit Provider Specialist
DX: G47.34 Idiopathic sleep related nonobstructive alveolar hypoventilation (principal)

== ENCOUNTER 2025-02-27 10:28 | Outpatient (CLI) | payer MEDICARE, MEDICAID, SELFPAY ==
--- OUTSIDE RECORDS SUMMARY | 2025-02-27 10:35 | XMS_ITS | Clinical Summary ---
Author Organization [facility] Address [address] [place] [address], [address] [place] [address] Care Team Providers Care Bleacher Sulfite Pulp Name Role Phone Christine Ladd PA-C Primary [...] of Treatment Not on file Care Teams Bleacher Sulfite Pulp Relationship Specialty Start Date End Date Christine Ladd PA-C [address] [place] [address] PCP - General 07/13/21
--- OUTSIDE RECORDS SUMMARY | 2025-02-27 10:35 | XMS_ITS | Clinical Summary ---
Author Organization [facility] Address [address] [place] [address] Phone Care Team Providers Care Lease Picker Name Role Phone Marlene Nieto NP Primary Care Provider [phone] Shailesh Perez PT Unavailable Allergies Active Allergy [...] to finish a HPV vaccination series through [facility]. Patient to inquire after cervical cancer screening through the gender affirming [facility]. Generalized osteoarthritis of multiple sites [...] Gender dysphoria 07/26/2022 Overview (08/23/2023): Following with [facility] Gender affirming services Assessment & Plan (08/23/2023 [...] surgical information sessions provided by [facility]. Advised that she would be able to find further information regarding qualifications and expectations for these surgical and nonsurgical options. We will hold off on referral for now. Encouraged continued dietary and lifestyle modifications. Bipolar 1 disorder 07/22/2022 Assessment & Plan (08/23/2023 8:48 AM EDT): Following with psychiatry through [facility]. Assessment & Plan (08/20/2022 2:04 PM EDT): On the wait list to established with new psychiatry provider through [facility]. Assessment & Plan (07/22/2022 5:26 PM EDT): Patient given information for [place] therapy group and advised to reach out to them to establish care with local psychiatric provider. Personality disorder 07/22/2022 Assessment & Plan (08/23/2023 8:48 AM EDT): Following with psychiatry through [facility]. Also to establish with psychiatry through the [facility]. Other long term care social worker (current) drug therapy Assessment & Plan (07/22/2022 5:26 PM EDT): Long-term use of antipsychotics which can cause increased lipid and blood glucose levels. Monitoring lab work ordered today. [place] use 07/22/2022 Assessment & Plan (08/20/2022 11:29 AM EDT): [place] levels within normal range. Assessment & Plan [...] Family History Medical History Relation Name Comments Developmental Disability Brother 1 aut ism Developmental Disability Brother 2 aut ism Depression Father Cancer Maternal Grandmother Mental Illness [...] place to sleep or slept in a intermediate (including now)? No 06/02/2023 Comments No Sex and Gender Information Value Date Recorded Sex Assigned at Female 07/22/2022 3:11 PM EDT Legal Sex Female 3:08 PM EST Gender Identity asexual 07/22/2022 5:11 PM EDT Sexual Orientation Choose not to disclose 2022 3:11 PM EDT Last Filed Vital Signs Vital Sign Reading [...] Pap Smear 2017 Cervical Cancer Screening 08/20/2020 Wellness Exam Medicare 08/23/2024 08/23/2023 COVID-19 Vaccine ( season) 2024 02/12/2023, 04/08/2021, 08/27/2020, Additional history exists Influenza Vaccine (#1) 2024 , 02/12/2023, 02/12/2023, Additional history exists HPV/Pap Cotest 2026 08/19/2020 DTaP/TDaP/Td (2 - Td or Tdap) 06/15/2029 06/15/2019 Hepatitis B Vaccine Discontinued Meningococcal B Vaccine Aged Out No l onger eligible based on patient's age to complete this topic Pneumococcal Vaccine 0-49 Aged Out No longer eligible based on patient's age to complete this topic Insurance MEDICAID [place] [employer] MEDICARE PPO MR Care Teams Lease Picker Relationship Specialty Start Date End Date Marlene Nieto NP [facility] [place] [address] PCP - General Nurse Practitioner-Family 07/22/22 Shailesh Perez, [facility] [address] [place] [address] [id number] Physical Therapist Physical Therapist 06/20/23
== END 2025-02-27 23:59 | disposition home or self-care (01) ==
LOC: RT 10:29
PROVIDERS: PCP Physician Assistant Medical; Visit Provider Specialist
DX: I49.1 Atrial premature depolarization (principal); I49.3 Ventricular premature depolarization; I47.29 Other ventricular tachycardia; I95.9 Hypotension, unspecified
CPT/HCPCS: 93270; 93272

== ENCOUNTER 2025-03-11 08:16 | Day surgery (SDC) | payer MEDICARE, MEDICAID, SELFPAY ==
--- OUTSIDE RECORDS SUMMARY | 2025-03-11 08:20 | XMS_ITS | Data Portability ---
Author Organization [facility] Address [address] [place] [address] Assessment No assessment recorded. Plan of Treatment Reminders Order Date Submit Date Provider Last Modified By Organization Details Last Modified Time Details Appointments None recorded. Lab CBC w/ auto diff 2024 025 KERI [facility], [address], [address], [place], [address], 5 04:10:48 vitamin D, 25-hydrox y, total, serum 2024 025 KERI [facility], [address], [address], [place], [address], 5 07:14:39 iron + total iron-bind ing capacity (TIBC), serum 2024 025 KERI [facility], [address], [address], [place], [address], 5 07:14:38 ferritin, serum or plasma 2024 025 KERI [facility], [address], [address], [place], [address], 5 07:14:40 CBC w/ auto diff 2024 025 KERI [facility], [address], [address], [place], [address], 5 07:14:37 vitamin B12, serum 2024 025 KERI [facility], [address], [address], [place], [address], 5 07:14:40 TSH, ultra-sen sitive, serum 2024 025 KERI [facility], [address], [address], [place], [address], 5 07:14:39 BMP, serum or plasma 2024 025 KERI [facility], [address], [address], [place], [address], 5 07:14:38 Referral physical therapist referral 2024 025 [facility]I [facility], [address], [place], [address], 15:15:43 pain managemen t referral 2024 025 KERI [facility], [address] [place] [address] , [facility] [address], [place], [address], 08:14:15 physical therapist referral 2024 025 apurva [facility], [address], [place], [address], 15:15:43 physical therapist referral 2024 025 alf [facility], [address], [place], [address], 18:40:10 Procedures None recorded. Surgeries None recorded. Imaging XR, knee, 3 view 2024 025 KERI Not available 16:27:26 XR, wrist, 3 or more view 2024 025 [facility], [address] [facility] , [place], [address], 16:27:49 Medication Orders albuterol sulfate HFA 90 mcg/actua tion aerosol inhaler 2024 025 [facility], [address], [place], [address], 09:43:40 methocarb hardeep 500 mg tablet 2024 025 [facility], [address], [place], [address], 10:59:05 Patient TargetsNo targets recorded. Patient Instructions Encounter Date Encounter Id Patient Instructions Last Modified By Organization Details Last Modified Time 11/27/2024 [id number] learning about healthy weight ehimes Not available 11/27/2024 10:56:10 body mass index: care instructions ehimes Not available 11/27/2024 10:56:10 01/01/2025 [id number] complete PFT w/ post bronchodilator spirometry* KERI [...] for Pain of left wrist Referring Physician: [facility], Encounter Date: 09/21/2024 Pain Management Referral for Fibromyalgia Referring Physician: [facility], Encounter Date: 11/27/2024 Physical Therapist Referral for Pain of right knee joint Referring Physician: [facility], Encounter Date: 01/15/2025 Results Created Date Observation Date Name Description Value Unit Range Abnormal Flag Note LastModifiedBy Organization Detail LastModifiedTime 08/31/19 25 08/31/2024 LH+FS H+EST ROGEN LH 3.4 mIU/m L normal Adult Femal e Range Folli cular phase 2.4 - 12.6 Ovula tion phase 14.0 - 95.6 Lutea l phase 1.0 - 11.4 Postm enopa usal 7.7 - 58.5 Not Available [facility] ([facility]) [address] [place], [address], 09/01/2024 22:09:16 08/31/19 25 08/31/2024 LH+FS H+EST ROGEN FSH 1.2 mIU/m L Adult Femal e Range Folli cular phase 3.5 - 12.5 Ovula tion phase 4.7 - 21.5 Lutea l phase 1.7 - 7.7 Postm enopa usal 25.8 - 134.8 Not Available [facility] ([facility]) [address] [place], [address], 09/01/2024 22:09:16 08/31/19 25 09/01/2024 LH+FS H+EST ROGEN estrogens, total 704 pg/mL normal Prepu yessica l < 40 Femal e Cycle : 1-10 Days 16 - 328 11-20 Days 34 - 501 21-30 Days 48 - 350 Post- Menop ausal 40 - 244 Not Available [facility] ([facility]) [address] [place], [address], 09/01/2024 22:09:16 08/31/19 25 08/31/2024 CBC WITH DIFFE RENTI AL/PL ATELE T WBC 10.2 x10e3 /uL 3.4-10 .8 normal Not Available [facility] ([facility]) [address] [place], [address], 09/01/2024 22:09:17 08/31/19 25 08/31/2024 CBC WITH DIFFE RENTI AL/PL ATELE T RBC 4.49 x10e6 /uL 3.77-5 .28 normal Not Available [facility] ([facility]) [address] [facility], [place], [address], 09/01/2024 22:09:17 08/31/19 25 08/31/2024 CBC WITH DIFFE RENTI AL/PL ATELE T hemoglobin 12.6 g/dL 11.1-1 5.9 normal Not Available [facility] ([facility]) [address] [facility], [place], [address], 09/01/2024 22:09:17 08/31/19 25 08/31/2024 CBC WITH DIFFE RENTI AL/PL ATELE T hematocrit 40.4 % 34.0-4 6.6 normal Not Available [facility] ([facility]) [address] [facility], [place], [address], 09/01/2024 22:09:17 08/31/1908/31/2024 CBC WITH DIFFE RENTI AL/PL ATELE T MCV 90 fL 79-97 normal Not Available [facility] ([facility]) [address] [place], [address], 09/01/2024 22:09:17 08/31/19 25 08/31/2024 CBC WITH DIFFE RENTI AL/PL ATELE T MCH 28.1 pg 26.6-3 3.0 normal Not Available [facility] ([facility]) [address] [place], [address], 09/01/2024 22:09:17 08/31/19 25 08/31/2024 CBC WITH DIFFE RENTI AL/PL ATELE T MCHC 31.2 g/dL 31.5-3 5.7 below low normal Not Available [facility] ([facility]) [address] [facility], [place], [address], 09/01/2024 22:09:17 08/31/19 25 08/31/2024 CBC WITH DIFFE RENTI AL/PL ATELE T RDW 13.5 % 11.7-1 5.4 Not Available [facility] ([facility]) [address] [place], [address], 09/01/2024 22:09:17 08/31/19 25 08/31/2024 CBC WITH DIFFE RENTI AL/PL ATELE T platelets 325 x10e3 /uL 150-45 0 normal Not Available [facility] ([facility]) [address] [place], [address], 09/01/2024 22:09:17 08/31/19 25 08/31/2024 CBC WITH DIFFE RENTI AL/PL ATELE T neutrophils 61 % not estab. normal Not Available [facility] ([facility]) [address] [facility], [place], [address], 09/01/2024 22:09:17 08/31/19 25 08/31/2024 CBC WITH DIFFE RENTI AL/PL ATELE T lymphs 28 % not estab. normal Not Available [facility] ([facility]) [address] [place], [address], 09/01/2024 22:09:17 08/31/1908/31/2024 CBC WITH DIFFE RENTI AL/PL ATELE T monocytes 8 % not estab. normal Not Available [facility] ([facility]) [address] [place], [address], 09/01/2024 22:09:17 08/31/1908/31/2024 CBC WITH DIFFE RENTI AL/PL ATELE T eos 2 % not estab. normal Not Available [facility] ([facility]) [address] [place], [address], 09/01/2024 22:09:17 08/31/19 25 08/31/2024 CBC WITH DIFFE RENTI AL/PL ATELE T basos 1 % not estab. normal Not Available [facility] ([facility]) [address] [place], [address], 09/01/2024 22:09:17 08/31/19 25 08/31/2024 CBC WITH DIFFE RENTI AL/PL ATELE T immature cells [employer] Not Available [facility] ([facility]) [address] [place], [address], 09/01/2024 22:09:17 08/31/19 25 08/31/2024 CBC WITH DIFFE RENTI AL/PL ATELE T neutrophils (absolute) 6.2 x10e3 /uL 1.4-7. 0 normal Not Available [facility] ([facility]) [address] [place], [address], 09/01/2024 22:09:17 08/31/19 25 08/31/2024 CBC WITH DIFFE RENTI AL/PL ATELE T lymphs (absolute) 2.8 x10e3 /uL 0.7-3. 1 normal Not Available [facility] ([facility]) [address] [place], [address], 09/01/2024 22:09:17 08/31/1908/31/2024 CBC WITH DIFFE RENTI AL/PL ATELE T monocytes(ab solute) 0.8 x10e3 /uL 0.1-0. 9 normal Not Available [facility] ([facility]) [address] [place], [address], 09/01/2024 22:09:17 08/31/19 25 08/31/2024 CBC WITH DIFFE RENTI AL/PL ATELE T eos (absolute) 0.2 x10e3 /uL 0.0-0. 4 normal Not Available [facility] ([facility]) [address] [place], [address], 09/01/2024 22:09:17 08/31/19 25 08/31/2024 CBC WITH DIFFE RENTI AL/PL ATELE T baso (absolute) 0.1 x10e3 /uL 0.0-0. 2 normal Not Available [facility] ([facility]) [address] [place], [address], 09/01/2024 22:09:17 08/31/19 25 08/31/2024 CBC WITH DIFFE RENTI AL/PL ATELE T immature granulocytes 0 % not estab. Not Available [facility] ([facility]) [address] [facility], [place], [address], 09/01/2024 22:09:17 08/31/19 25 08/31/2024 CBC WITH DIFFE RENTI AL/PL ATELE T immature grans (abs) 0.0 x10e3 /uL 0.0-0. 1 Not Available [facility] ([facility]) [address] [facility], [place], [address], 09/01/2024 22:09:17 08/31/19 25 08/31/2024 CBC WITH DIFFE RENTI AL/PL ATELE T NRBC [employer] Not Available [facility] ([facility]) [address] [facility], [place], [address], 09/01/2024 22:09:17 08/31/19 25 08/31/2024 CBC WITH DIFFE RENTI AL/PL ATELE T hematology comments: [employer] Not Available [facility] ([facility]) [address] [place], [address], 09/01/2024 22:09:17 08/31/19 25 08/31/2024 IRON AND TIBC iron bind.cap.(TI BC) 309 ug/dL 250-45 0 normal Not Available [facility] ([facility]) [address] [place], [address], 09/01/2024 22:09:18 08/31/19 25 08/31/2024 IRON AND TIBC UIBC 226 ug/dL 131-42 5 normal Not Available [facility] ([facility]) [address] [place], [address], 09/01/2024 22:09:18 08/31/19 25 08/31/2024 IRON AND TIBC iron 83 ug/dL 27-159 normal Not Available [facility] ([facility]) [address] [facility], [place], [address], 09/01/2024 22:09:18 08/31/19 25 08/31/2024 IRON AND TIBC iron saturation 27 % 15-55 normal Not Available [facility] ([facility]) [address] [facility], [place], [address], 09/01/2024 22:09:18 08/31/19 25 08/31/2024 CHRIS TIN ferritin 54 NG/mL 15-150 normal Not Available [facility] ([facility]) [address] [facility], [place], [address], 09/01/2024 22:09:18 01/02/20 25 01/02/2025 CBC WITH DIFFE RENTI AL/PL ATELE T WBC 14.0 x10e3 /uL 3.4-10 .8 above high normal Not Available [facility] ([facility]) [address] [facility], [place], [address], 01/02/2025 07:14:37 01/02/20 25 01/02/2025 CBC WITH DIFFE RENTI AL/PL ATELE T RBC 4.66 x10e6 /uL 3.77-5 .28 normal Not Available [facility] ([facility]) [address] [place], [address], 01/02/2025 07:14:37 01/02/20 25 01/02/2025 CBC WITH DIFFE RENTI AL/PL ATELE T hemoglobin 13.6 g/dL 11.1-1 5.9 normal Not Available [facility] ([facility]) [address] [place], [address], 01/02/2025 07:14:37 01/02/2001/02/2025 CBC WITH DIFFE RENTI AL/PL ATELE T hematocrit 42.9 % 34.0-4 6.6 normal Not Available [facility] ([facility]) [address] [facility], [place], [address], 01/02/2025 07:14:37 01/02/2001/02/2025 CBC WITH DIFFE RENTI AL/PL ATELE T MCV 92 fL 79-97 normal Not Available [facility] ([facility]) [address] [facility], [place], [address], 01/02/2025 07:14:37 01/02/2001/02/2025 CBC WITH DIFFE RENTI AL/PL ATELE T MCH 29.2 pg 26.6-3 3.0 normal Not Available [facility] ([facility]) [address] [facility], [place], [address], 01/02/2025 07:14:37 01/02/2001/02/2025 CBC WITH DIFFE RENTI AL/PL ATELE T MCHC 31.7 g/dL 31.5-3 5.7 normal Not Available [facility] ([facility]) [address] [place], [address], 01/02/2025 07:14:37 01/02/2001/02/2025 CBC WITH DIFFE RENTI AL/PL ATELE T RDW 12.6 % 11.7-1 5.4 Not Available [facility] ([facility]) [address] [place], [address], 01/02/2025 07:14:37 01/02/2001/02/2025 CBC WITH DIFFE RENTI AL/PL ATELE T platelets 402 x10e3 /uL 150-45 0 normal Not Available [facility] ([facility]) [address] [place], [address], 01/02/2025 07:14:37 01/02/2001/02/2025 CBC WITH DIFFE RENTI AL/PL ATELE T neutrophils 62 % not estab. normal Not Available [facility] ([facility]) [address] [facility], [place], [address], 01/02/2025 07:14:37 01/02/20 25 01/02/2025 CBC WITH DIFFE RENTI AL/PL ATELE T lymphs 29 % not estab. normal Not Available [facility] ([facility]) [address] [facility], [place], [address], 01/02/2025 07:14:37 01/02/2001/02/2025 CBC WITH DIFFE RENTI AL/PL ATELE T monocytes 6 % not estab. normal Not Available [facility] ([facility]) [address] [facility], [place], [address], 01/02/2025 07:14:37 01/02/20 25 01/02/2025 CBC WITH DIFFE RENTI AL/PL ATELE T eos 2 % not estab. normal Not Available [facility] ([facility]) [address] [facility], [place], [address], 01/02/2025 07:14:37 01/02/2001/02/2025 CBC WITH DIFFE RENTI AL/PL ATELE T basos 1 % not estab. normal Not Available [facility] ([facility]) [address] [facility], [place], [address], 01/02/2025 07:14:37 01/02/20 25 01/02/2025 CBC WITH DIFFE RENTI AL/PL ATELE T immature cells [employer] Not Available [facility] ([facility]) [address] [place], [address], 01/02/2025 07:14:37 01/02/20 25 01/02/2025 CBC WITH DIFFE RENTI AL/PL ATELE T neutrophils (absolute) 8.6 x10e3 /uL 1.4-7. 0 above high normal Not Available [facility] ([facility]) [address] [facility], [place], [address], 01/02/2025 07:14:37 01/02/20 25 01/02/2025 CBC WITH DIFFE RENTI AL/PL ATELE T lymphs (absolute) 4.0 x10e3 /uL 0.7-3. 1 above high normal Not Available [facility] ([facility]) [address] [facility], [place], [address], 01/02/2025 07:14:37 01/02/20 25 01/02/2025 CBC WITH DIFFE RENTI AL/PL ATELE T monocytes(ab solute) 0.9 x10e3 /uL 0.1-0. 9 normal Not Available [facility] ([facility]) [address] [facility], [place], [address], 01/02/2025 07:14:37 01/02/20 25 01/02/2025 CBC WITH DIFFE RENTI AL/PL ATELE T eos (absolute) 0.3 x10e3 /uL 0.0-0. 4 normal Not Available [facility] ([facility]) [address] [facility], [place], [address], 01/02/2025 07:14:37 01/02/20 25 01/02/2025 CBC WITH DIFFE RENTI AL/PL ATELE T baso (absolute) 0.1 x10e3 /uL 0.0-0. 2 normal Not Available [facility] ([facility]) [address] [place], [address], 01/02/2025 07:14:37 01/02/2001/02/2025 CBC WITH DIFFE RENTI AL/PL ATELE T immature granulocytes 0 % not estab. Not Available [facility] ([facility]) [address] [facility], [place], [address], 01/02/2025 07:14:37 01/02/20 25 01/02/2025 CBC WITH DIFFE RENTI AL/PL ATELE T immature grans (abs) 0.0 x10e3 /uL 0.0-0. 1 Not Available [facility] ([facility]) [address] [facility], [place], [address], 01/02/2025 07:14:37 01/02/20 25 01/02/2025 CBC WITH DIFFE RENTI AL/PL ATELE T NRBC [employer] Not Available [facility] ([facility]) [address] [facility], [place], [address], 01/02/2025 07:14:37 01/02/2001/02/2025 CBC WITH DIFFE RENTI AL/PL ATELE T hematology comments: [employer] Not Available [facility] ([facility]) [address] [facility], [place], [address], 01/02/2025 07:14:37 01/02/20 25 01/02/2025 BASIC METAB OLIC PANEL (8) glucose 84 mg/dL 70-99 normal Not Available [facility] ([facility]) [address] [facility], [place], [address], 01/02/2025 07:14:38 01/02/20 25 01/02/2025 BASIC METAB OLIC PANEL (8) BUN 8 mg/dL 6-20 normal Not Available [facility] ([facility]) [address] [place], [address], 01/02/2025 07:14:38 01/02/20 25 01/02/2025 BASIC METAB OLIC PANEL (8) creatinine 0.91 mg/dL 0.57-1 .00 normal Not Available [facility] ([facility]) [address] [place], [address], 01/02/2025 07:14:38 01/02/20 25 01/02/2025 BASIC METAB OLIC PANEL (8) eGFR 88 mL/mi n/1.7 3 >59 normal Not Available [facility] ([facility]) [address] [place], [address], 01/02/2025 07:14:38 01/02/2001/02/2025 BASIC METAB OLIC PANEL (8) BUN/creatini ne ratio 9 9-23 normal Not Available [facility] ([facility]) [address] [place], [address], 01/02/2025 07:14:38 01/02/20 25 01/02/2025 BASIC METAB OLIC PANEL (8) sodium 139 mmol/ L 134-14 4 normal Not Available [facility] ([facility]) [address] [place], [address], 01/02/2025 07:14:38 01/02/20 25 01/02/2025 BASIC METAB OLIC PANEL (8) potassium 4.2 mmol/ L 3.5-5. 2 normal Not Available [facility] ([facility]) [address] [place], [address], 01/02/2025 07:14:38 01/02/2001/02/2025 BASIC METAB OLIC PANEL (8) chloride 108 mmol/ L 96-106 above high normal Not Available [facility] ([facility]) [address] [place], [address], 01/02/2025 07:14:38 01/02/2001/02/2025 BASIC METAB OLIC PANEL (8) carbon dioxide, total 17 mmol/ L 20-29 below low normal Not Available [facility] ([facility]) [address] [place], [address], 01/02/2025 07:14:38 01/02/2001/02/2025 BASIC METAB OLIC PANEL (8) calcium 9.4 mg/dL 8.7-10 .2 normal Not Available [facility] ([facility]) [address] [place], [address], 01/02/2025 07:14:38 01/02/2001/02/2025 IRON AND TIBC iron bind.cap.(TI BC) 330 ug/dL 250-45 0 normal Not Available [facility] ([facility]) [address] [facility], [place], [address], 01/02/2025 07:14:38 01/02/2001/02/2025 IRON AND TIBC UIBC 277 ug/dL 131-42 5 normal Not Available [facility] ([facility]) [address] [place], [address], 01/02/2025 07:14:38 01/02/2001/02/2025 IRON AND TIBC iron 53 ug/dL 27-159 normal Not Available [facility] ([facility]) [address] [place], [address], 01/02/2025 07:14:38 01/02/2001/02/2025 IRON AND TIBC iron saturation 16 % 15-55 normal Not Available [facility] ([facility]) [address] [place], [address], 01/02/2025 07:14:38 01/02/2001/02/2025 TSH TSH 2.250 uIU/m L 0.450- 4.500 normal Not Available [facility] ([facility]) [address] [place], [address], 01/02/2025 07:14:39 01/02/2001/02/2025 VITAM IN D, 25-HY [...] um and D. Kelsey rashid [place]: [facility] . 2. Jammie k MF, Binkl ey [place], Bisch off-F errar i ROJO, et al. Evalu ation , treat ment, and preve ntion of vitam in D defic iency : an Endoc rine Socie ty clini sully pract ice guide line. JCEM. 2010; 96(7) :1911 -30. Not Available [facility] ([facility]) [address] [place], [address], 01/02/2025 07:14:39 01/02/20 25 01/02/2025 VITAM IN B12 vitamin B12 438 pg/mL 232-12 45 normal Not Available [facility] ([facility]) [address] [place], [address], 01/02/2025 07:14:40 01/02/20 25 01/02/2025 CHRIS TIN ferritin 60 NG/mL 15-150 normal Not Available [facility] ([facility]) [address] [place], [address], 01/02/2025 07:14:40 01/16/20 25 01/16/2025 CBC WITH DIFFE RENTI AL/PL ATELE T WBC 13.0 x10e3 /uL 3.4-10 .8 above high normal Not Available [facility] ([facility]) [address] [place], [address], 01/16/2025 04:10:48 01/16/20 25 01/16/2025 CBC WITH DIFFE RENTI AL/PL ATELE T RBC 4.64 x10e6 /uL 3.77-5 .28 normal Not Available [facility] ([facility]) [address] [place], [address], 01/16/2025 04:10:48 01/16/20 25 01/16/2025 CBC WITH DIFFE RENTI AL/PL ATELE T hemoglobin 13.5 g/dL 11.1-1 5.9 normal Not Available [facility] ([facility]) [address] [place], [address], 01/16/2025 04:10:48 01/16/20 25 01/16/2025 CBC WITH DIFFE RENTI AL/PL ATELE T hematocrit 43.8 % 34.0-4 6.6 normal Not Available [facility] ([facility]) [address] [place], [address], 01/16/2025 04:10:48 01/16/20 25 01/16/2025 CBC WITH DIFFE RENTI AL/PL ATELE T MCV 94 fL 79-97 normal Not Available [facility] ([facility]) [address] [place], [address], 01/16/2025 04:10:48 01/16/20 25 01/16/2025 CBC WITH DIFFE RENTI AL/PL ATELE T MCH 29.1 pg 26.6-3 3.0 normal Not Available [facility] ([facility]) [address] [place], [address], 01/16/2025 04:10:48 01/16/20 25 01/16/2025 CBC WITH DIFFE RENTI AL/PL ATELE T MCHC 30.8 g/dL 31.5-3 5.7 below low normal Not Available [facility] ([facility]) [address] [place], [address], 01/16/2025 04:10:48 01/16/20 25 01/16/2025 CBC WITH DIFFE RENTI AL/PL ATELE T RDW 12.6 % 11.7-1 5.4 Not Available [facility] ([facility]) [address] [place], [address], 01/16/2025 04:10:48 01/16/20 25 01/16/2025 CBC WITH DIFFE RENTI AL/PL ATELE T platelets 416 x10e3 /uL 150-45 0 normal Not Available [facility] ([facility]) [address] [facility], [place], [address], 01/16/2025 04:10:48 01/16/20 25 01/16/2025 CBC WITH DIFFE RENTI AL/PL ATELE T neutrophils 69 % not estab. normal Not Available [facility] ([facility]) [address] [facility], [place], [address], 01/16/2025 04:10:48 01/16/20 25 01/16/2025 CBC WITH DIFFE RENTI AL/PL ATELE T lymphs 23 % not estab. normal Not Available [facility] ([facility]) [address] [facility], [place], [address], 01/16/2025 04:10:48 01/16/20 25 01/16/2025 CBC WITH DIFFE RENTI AL/PL ATELE T monocytes 5 % not estab. normal Not Available [facility] ([facility]) [address] [facility], [place], [address], 01/16/2025 04:10:48 01/16/20 25 01/16/2025 CBC WITH DIFFE RENTI AL/PL ATELE T eos 2 % not estab. normal Not Available [facility] ([facility]) [address] [facility], [place], [address], 01/16/2025 04:10:48 01/16/20 25 01/16/2025 CBC WITH DIFFE RENTI AL/PL ATELE T basos 1 % not estab. normal Not Available [facility] ([facility]) [address] [facility], [place], [address], 01/16/2025 04:10:48 01/16/20 25 01/16/2025 CBC WITH DIFFE RENTI AL/PL ATELE T immature cells [employer] Not Available [facility] ([facility]) [address] [place], [address], 01/16/2025 04:10:48 01/16/20 25 01/16/2025 CBC WITH DIFFE RENTI AL/PL ATELE T neutrophils (absolute) 8.8 x10e3 /uL 1.4-7. 0 above high normal Not Available [facility] ([facility]) [address] [place], [address], 01/16/2025 04:10:48 01/16/20 25 01/16/2025 CBC WITH DIFFE RENTI AL/PL ATELE T lymphs (absolute) 3.0 x10e3 /uL 0.7-3. 1 normal Not Available [facility] ([facility]) [address] [place], [address], 01/16/2025 04:10:48 01/16/20 25 01/16/2025 CBC WITH DIFFE RENTI AL/PL ATELE T monocytes(ab solute) 0.7 x10e3 /uL 0.1-0. 9 normal Not Available [facility] ([facility]) [address] [place], [address], 01/16/2025 04:10:48 01/16/20 25 01/16/2025 CBC WITH DIFFE RENTI AL/PL ATELE T eos (absolute) 0.3 x10e3 /uL 0.0-0. 4 normal Not Available [facility] ([facility]) [address] [place], [address], 01/16/2025 04:10:48 01/16/20 25 01/16/2025 CBC WITH DIFFE RENTI AL/PL ATELE T baso (absolute) 0.1 x10e3 /uL 0.0-0. 2 normal Not Available [facility] ([facility]) [address] [place], [address], 01/16/2025 04:10:48 01/16/20 25 01/16/2025 CBC WITH DIFFE RENTI AL/PL ATELE T immature granulocytes 0 % not estab. Not Available [facility] ([facility]) [address], [place], [address], 01/16/2025 04:10:48 01/16/20 25 01/16/2025 CBC WITH DIFFE RENTI AL/PL ATELE T immature grans (abs) 0.0 x10e3 /uL 0.0-0. 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 [email or web address] Not Available 2024 15:51:14 10/06/19 25 10/04/2024 XR, knee, 3 view No observ ation record ed. [email or web address] Not Available 2024 10:10:55 10/06/19 25 10/04/2024 XR, wrist , 3 or more view No observ ation record ed. jeferson Garza PT Ecs [address] [facility] , [place], [address], 10/08/2024 10:10:55 01/02/20 25 09/18/2024 home sleep testi ng (PROC ) No observ ation record ed. [facility] (Med Record) [address], [place], [address], 01/01/2025 11:47:39 01/12/20 25 01/02/2025 compl ete PFT w/ post [facility] hodil ator jelly metry * No observ ation record ed. [facility] (Medical Records) [address] [place] [address] , [place], [address], 01/14/2025 13:35:25 Result Notes None recorded. Problems Name Problem SNOMED Code Status Onset Date Resolution Date Notes Provider Name and Address Organization Details Recorded Time Fibromyalgia 507970752 Active 2024 Yahaira Pandey PA-C [address], [place], [address], [place] - [facility] 5 11:12:18 Obsessive-comp ulsive disorder 540400307 Active 2024 Yahaira Pandey PA-C [address], [place], [address], [place] [facility] 5 11:12:28 Bipolar disorder 90896891 Active 2024 Yahaira Pandey PA-C [address], [place], [address], [place] [facility] 5 11:12:36 Migraine 58304861 Active 2024 Yahaira Pandey PA-C [address], [place], [address], [place] [facility] 5 11:12:44 Iron deficiency 83001253 Active 2024 Yahaira Pandey PA-C [address], [place], [address], [place] [facility] 5 09:36:47 Problem Notes None recorded. Procedures Surgical History Date Name Laterality Status Provider Name and Address Organization Details Recorded Time 12/10/19 24 Hysterectomy completed Zonia Valadez [place] - [facility] 06/26/2024 10:42:30 11/17/19 24 Adnexal surgery completed Zonia Valadez [place] - [facility] 07/05/2024 10:21:49 04/18/19 04 ENT Surgery completed Zonia Allyson [place] - [facility] 07/05/2024 10:21:49 Wrist arthroscopy/surge [...] Not Avai lable naltrexone 50 mg tablet TAKE ONE (1) TABLET BY MOUTH ONCE DAILY DIRECTED. 2024 active Not Available Not Available Not [...] No t Available Qulipta 30 mg tablet TAKE 1 TABLET BY MOUTH EVERY DAY 2024 active Not Available Not Available Not Avai lable Vitals Date Recorded Body height Body mass index (BMI) Body weight Body temperature Heart rate Oxygen saturation Respiratory rate Pain severity - 0-10 verbal numeric rating [Score] - Reported Systolic And Diastolic Provider Name and Address Organization Details Last Updated DateTime 5 172.72 cm 35.8 kg/m2 734732. 61 g 98.2 [degF] 95 /min 99 % 18 /min 0 118/76 mm[Hg] Zonia Valadez [place] - [facility] 5 13:06:37 Date Recorded Body height Body mass index (BMI) Body weight Body temperature Heart rate Oxygen saturation Respiratory rate Pain severity - 0-10 verbal numeric rating [Score] - Reported Systolic And Diastolic Provider Name and Address Organization Details Last Updated DateTime 5 172.72 cm 34.1 kg/m2 107541. 39 g 97.9 [degF] 100 /min 96 % 18 /min 4 122/80 mm[Hg] Zonia Valadez [place] - [facility] 5 10:40:01 Date Recorded Body height Body mass index (BMI) Body weight Body temperature Respiratory rate Oxygen saturation Heart rate Systolic And Diastolic Provider Name and Address Organization Details Last Updated DateTime 5 172.72 cm 33.7 kg/m2 631996. 01 g 97.2 [degF] 16 /min 99 % 78 /min 124/80 mm[Hg] Muna Patterson RN [address], [place], [address], [place] - [facility] 09:30:23 Date Recorded Body height Body mass index (BMI) Body weight Respiratory rate Pain severity - 0-10 verbal numeric rating [Score] - Reported Body temperature Heart rate Oxygen saturation Systolic And Diastolic Provider Name and Address Organization Details Last Updated DateTime 5 172.72 cm 33.3 kg/m2 72090.7 3 g 16 /min 8 97.2 [degF] 76 /min 99 % 118/78 mm[Hg] Muna Patterson, RICARDO [address], [place], [address], [place] - [facility] 5 08:42:43 Social History Question Answer Notes LastModified by Organizat ion Details LastModified Time Tobacco Smoking Status Never Smoker Zonia Valadez [facility], [place] - [facility] 06/26/2024 10:40:46 Do You Have [...] Or The Highest Degree You Have Received? [id number] Information not available 07/05/2024 What Was The [...] anxious, or unable to sleep at night)? [id number] Information not available 07/05/2024 Family History Relationship [...] GPAL:G 0 P 0 0 0 0 Immunizations Vaccine Type Date Status Note Provider Nam e and Address Organization Details Recorded Time Influenza, split virus, trivalent, PF 02/14/2025 completed [place] - [facility] 02/14/2025 09:43:48 Past Encounters Encounter ID Performer Location Encounter Start Date Encounter Closed Date Diagnosis/Indication Diagnosis SNOMED-CT Code Diagnosis ICD10 Code Diagnosis IMO Codes Diagnosis Note [id number] Yahaira Pandey PA-C [facility] [address] [facility] [address] 06/26/2024 10:21:46 06/26/2024 11:49:56 Carpal tunnel syndrome of left wrist 7672109208 47550 G56.02 [id number] Yahaira Pandey PA-C [facility] [address] [place] [address] TA[place]IGU[place] ANGEL Pay[place] [address] 07/05/2024 10:06:00 07/05/2024 10:51:48 Migraine 56555650 G43.339 [id number] Yahaira Pandey PA-C [address] [address] 07/23/2024 14:30:08 07/23/2024 16:24:57 Paresthesia 43043154 R20.2 47343 Migraine 94554760 G43.90 9 [id number] Yahaira Pandey PA-C [address] [address] 08/30/2024 09:35:23 08/30/2024 10:23:14 Iron deficiency 40932334 E61.1 9881 Body mass index 30+ - obesity 841625897 Z68.36 487638 Obesity 357505447 E66.9 Loss of hair 633239935 L 65.9 09888 Abdominal discomfort 433 92233 R10.9 883386 [id number] Yahaira Pandey PA-C [address] [address] 09/21/2024 13:01:04 09/21/2024 13:19:42 Pain of right knee joint 8684982197 75480 M25.561 451342 Pain of left wrist 25729 63693 02447 M25.532 655120 [id number] Yahaira Pandey PA-C [address] [address] 11/27/2024 10:24:37 11/27/2024 11:09:02 Fibromyalgia 522733248 M79.7 Obese class II 566765489 1 86231 E66.812 Z68.35 5615683 [id number] Yahaira Pandey PA-C [address] [address] 01/01/2025 09:20:56 01/01/2025 10:31:53 Fatigue 33604477 R53.83 98426786 Dyspnea 080238730 R06.02 85306 [id number] Yahaira Pandey PA-C [address] [address] 01/15/2025 08:36:22 01/15/2025 09:22:47 Leukocytosis 280123652 D72.829 263599 Pain of ri ght knee joint 7076175237 20718 M25.561 330820 [id number] Yahaira Pandey PA-C [facility] [address] [place] [address] 02/14/2025 09:33:08 02/14/2025 10:12:03 Influenza vaccine needed 8243056475 106 Z23 Health Concerns Section Related Observation LastModified by Organization Detai ls LastModified Time None Recorded Concern Status LastModified by Organization Details LastModified Time None Recorded Advance Directives Directive N: Payers Insurance Date Sequence Insurance Name Policy Number Policy Gaxiola Covered Member ID Gaxiola Member ID Guarantor Name 02/14/2025 1 [facility] (MEDICARE REPLACEMENT/A DVANTAGE - PPO) ALEXIADSNP Pravin Haynes [id number] Pravin Haynes Notes Date Note Type Note Provider Name and Address Organization Details Recorded Time 09/21/2024 text/html ROS as noted in the [...] and has overuse syndrome. Yahaira Pandey PA-C [facility][note 3] [address], [place], [address], [place] - [facility] 09/21/2024 13:22:52 11/27/2024 text/html ROS as noted in the HPI 29 yo female presents to discuss a new pain management referral. She was getting tizanidine but there was a contraindication with a psych medication she was put on. 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 In the mean time I will swicth her to methocarbamal until she can be seen. Yahaira Pandey PA-C [address], [place], [address], SHER[employer] assistant - [facility] 11/27/2024 11:08:38 01/01/2025 text/html ROS [...] weeks. Yahaira Pandey PA-C [address], [place], [address], [employer] [facility] 01/01/2025 10:34:03 01/15/2025 text/html ROS as noted [...] now. Yahaira Pandey PA-C [address], [place], [address], [employer] [facility] 01/15/2025 09:04:23 OBGyn Episode No OBEpisode recorded.
--- OUTSIDE RECORDS SUMMARY | 2025-03-11 08:20 | XMS_ITS | Clinical Summary ---
Author Organization Galileo Perez [facility] Address [address] [place] [address], [address] [place] [address] Care Team Providers Care Electronic Die Maker Name Role Phone Christine Ladd PA-C Primary [...] of Treatment Not on file Care Teams Electronic Die Maker Relationship Specialty Start Date End Date Christine Ladd PA-C [address] [place] [address] PCP - General 07/13/21
--- OUTSIDE RECORDS SUMMARY | 2025-03-11 08:20 | XMS_ITS | Continuity of Care Document ---
Author Organization [facility], [facility] Address [address] [place] [address] Assessment No assessment recorded. Plan of Treatment Reminders Order Date Submit Date Provider Last Modified By Organization Details Last Modified Time Details Appointments None recorded. Lab vitamin D, 25-hydroxy , total, serum 2024 025 KERI [facility], [address], [address], [place], [address], 5 07:14:39 iron + total iron-keith ng capacity (TIBC), serum 2024 025 KERI [facility], [address], [address], [place], [address], 5 07:14:38 ferritin, serum or plasma 2024 025 KERI [facility], [address], [address] [address], [place], [address], 5 07:14:40 CBC w/ auto diff 2024 025 KERI [facility], [address], [address] [address], [place], [address], 5 07:14:37 vitamin B12, serum 2024 025 KERI [facility], [address], [address] [address], [place], [address], 5 07:14:40 TSH, ultra-sens itive, serum 2024 025 KERI [facility], [address], [address] [address], [place], [address], 07:14:39 BMP, serum or plasma 2024 025 KERI [facility], [address], [place] [address], [place], [address], 07:14:38 Referral None recorded. Procedures None recorded. Surgeries None recorded. Imaging None recorded. Medication Orders albuterol sulfate HFA 90 mcg/actuat ion aerosol inhaler 2024 025 ACKERLY [facility], [address], [place], [address], 09:43:40 Patient TargetsNo targets recorded. Patient Instructions Encounter Date Encounter Id Patient Instructions Last Modified By Organization Details Last Modified Time 01/01/2025 [id number] complete PFT w/ post bronchodilator spirometry* KERI [...] .8 above high normal Not Available [facility] ([facility]) [address], [place], [address], 01/02/2025 07:14:37 01/02/2001/02/2025 CBC WITH DIFFE RENTI AL/PL ATELE T RBC 4.66 x10e6 /uL 3.77-5 .28 normal Not Available [facility] ([facility]) [address], [place], [address], 01/02/2025 07:14:37 01/02/20 25 01/02/2025 CBC WITH DIFFE RENTI AL/PL ATELE T hemoglobin 13.6 g/dL 11.1-1 5.9 normal Not Available [facility] ([facility]) [address] [place], [address], 01/02/2025 07:14:37 01/02/2001/02/2025 CBC WITH DIFFE RENTI AL/PL ATELE T hematocrit 42.9 % 34.0-4 6.6 normal Not Available [facility] ([facility]) [address] [place], [address], 01/02/2025 07:14:37 01/02/2001/02/2025 CBC WITH DIFFE RENTI AL/PL ATELE T MCV 92 fL 79-97 normal Not Available [facility] ([facility]) [address] [place], [address], 01/02/2025 07:14:37 01/02/2001/02/2025 CBC WITH DIFFE RENTI AL/PL ATELE T MCH 29.2 pg 26.6-3 3.0 normal Not Available [facility] ([facility]) [address] [place], [address], 01/02/2025 07:14:37 01/02/2001/02/2025 CBC WITH DIFFE RENTI AL/PL ATELE T MCHC 31.7 g/dL 31.5-3 5.7 normal Not Available [facility] ([facility]) [address] [place], [address], 01/02/2025 07:14:37 01/02/2001/02/2025 CBC WITH DIFFE RENTI AL/PL ATELE T RDW 12.6 % 11.7-1 5.4 Not Available [facility] ([facility]) [address] [place], [address], 01/02/2025 07:14:37 01/02/2001/02/2025 CBC WITH DIFFE RENTI AL/PL ATELE T platelets 402 x10e3 /uL 150-45 0 normal Not Available [facility] ([facility]) [address], [place], [address], 01/02/2025 07:14:37 01/02/2001/02/2025 CBC WITH DIFFE RENTI AL/PL ATELE T neutrophils 62 % not estab. normal Not Available [facility] ([facility]) [address], [place], [address], 01/02/2025 07:14:37 01/02/2001/02/2025 CBC WITH DIFFE RENTI AL/PL ATELE T lymphs 29 % not estab. normal Not Available [facility] ([facility]) [address], [place], [address], 01/02/2025 07:14:37 01/02/2001/02/2025 CBC WITH DIFFE RENTI AL/PL ATELE T monocytes 6 % not estab. normal Not Available [facility] ([facility]) [address], [place], [address], 01/02/2025 07:14:37 01/02/2001/02/2025 CBC WITH DIFFE RENTI AL/PL ATELE T eos 2 % not estab. normal Not Available [facility] ([facility]) [address], [place], [address], 01/02/2025 07:14:37 01/02/2001/02/2025 CBC WITH DIFFE RENTI AL/PL ATELE T basos 1 % not estab. normal Not Available [facility] ([facility]) [address], [place], [address], 01/02/2025 07:14:37 01/02/20 25 01/02/2025 CBC WITH DIFFE RENTI AL/PL ATELE T immature cells PROCESS CONTROL SUPERVISOR Not Available [facility] ([facility]) [address] [place], [address], 01/02/2025 07:14:37 01/02/20 25 01/02/2025 CBC WITH DIFFE RENTI AL/PL ATELE T neutrophils (absolute) 8.6 x10e3 /uL 1.4-7. 0 above high normal Not Available [facility] ([facility]) [address] [place], [address], 01/02/2025 07:14:37 01/02/2001/02/2025 CBC WITH DIFFE RENTI AL/PL ATELE T lymphs (absolute) 4.0 x10e3 /uL 0.7-3. 1 above high normal Not Available [facility] ([facility]) [address] [place], [address], 01/02/2025 07:14:37 01/02/20 25 01/02/2025 CBC WITH DIFFE RENTI AL/PL ATELE T monocytes(ab solute) 0.9 x10e3 /uL 0.1-0. 9 normal Not Available [facility] ([facility]) [address] [place], [address], 01/02/2025 07:14:37 01/02/20 25 01/02/2025 CBC WITH DIFFE RENTI AL/PL ATELE T eos (absolute) 0.3 x10e3 /uL 0.0-0. 4 normal Not Available [facility] ([facility]) [address] [place], [address], 01/02/2025 07:14:37 01/02/20 25 01/02/2025 CBC WITH DIFFE RENTI AL/PL ATELE T baso (absolute) 0.1 x10e3 /uL 0.0-0. 2 normal Not Available [facility] ([facility]) [address] [place], [address], 01/02/2025 07:14:37 01/02/20 25 01/02/2025 CBC WITH DIFFE RENTI AL/PL ATELE T immature granulocytes 0 % not estab. Not Available [facility] ([facility]) [address] [facility] [address], [place], [address], 01/02/2025 07:14:37 01/02/20 25 01/02/2025 CBC WITH DIFFE RENTI AL/PL ATELE T immature grans (abs) 0.0 x10e3 /uL 0.0-0. 1 Not Available [facility] ([facility]) [address], [place], [address], 01/02/2025 07:14:37 01/02/20 25 01/02/2025 CBC WITH DIFFE RENTI AL/PL ATELE T NRBC PROCESS CONTROL SUPERVISOR Not Available [facility] ([facility]) [address], [place], [address], 01/02/2025 07:14:37 01/02/2001/02/2025 CBC WITH DIFFE RENTI AL/PL ATELE T hematology comments: PROCESS CONTROL SUPERVISOR Not Available [facility] ([facility]) [address] [facility] [address], [place], [address], 01/02/2025 07:14:37 01/02/20 25 01/02/2025 BASIC METAB OLIC PANEL (8) glucose 84 mg/dL 70-99 normal Not Available [facility] ([facility]) [address] [place], [address], 01/02/2025 07:14:38 01/02/2001/02/2025 BASIC METAB OLIC PANEL (8) BUN 8 mg/dL 6-20 normal Not Available [facility] ([facility]) [address] [place], [address], 01/02/2025 07:14:38 01/02/20 25 01/02/2025 BASIC METAB OLIC PANEL (8) creatinine 0.91 mg/dL 0.57-1 .00 normal Not Available [facility] ([facility]) [address] [place], [address], 01/02/2025 07:14:38 01/02/2001/02/2025 BASIC METAB OLIC PANEL (8) eGFR 88 mL/mi n/1.7 3 >59 normal Not Available [facility] ([facility]) [address] [place], [address], 01/02/2025 07:14:38 01/02/2001/02/2025 BASIC METAB OLIC PANEL (8) BUN/creatini ne ratio 9 9-23 normal Not Available [facility] ([facility]) [address] [facility] [address], [place], [address], 01/02/2025 07:14:38 01/02/2001/02/2025 BASIC METAB OLIC PANEL (8) sodium 139 mmol/ L 134-14 4 normal Not Available [facility] ([facility]) [address] [place], [address], 01/02/2025 07:14:38 01/02/2001/02/2025 BASIC METAB OLIC PANEL (8) potassium 4.2 mmol/ L 3.5-5. 2 normal Not Available [facility] ([facility]) [address] [place], [address], 01/02/2025 07:14:38 01/02/2001/02/2025 BASIC METAB OLIC PANEL (8) chloride 108 mmol/ L 96-106 above high normal Not Available [facility] ([facility]) [address] [place], [address], 01/02/2025 07:14:38 01/02/20 25 01/02/2025 BASIC METAB OLIC PANEL (8) carbon dioxide, total 17 mmol/ L 20-29 below low normal Not Available [facility] ([facility]) [address] [facility] [address], [place], [address], 01/02/2025 07:14:38 01/02/2001/02/2025 BASIC METAB OLIC PANEL (8) calcium 9.4 mg/dL 8.7-10 .2 normal Not Available [facility] ([facility]) [address] [facility] [address], [place], [address], 01/02/2025 07:14:38 01/02/2001/02/2025 IRON AND TIBC iron bind.cap.(TI BC) 330 ug/dL 250-45 0 normal Not Available [facility] ([facility]) [address] [facility] [address], [place], [address], 01/02/2025 07:14:38 01/02/2001/02/2025 IRON AND TIBC UIBC 277 ug/dL 131-42 5 normal Not Available [facility] ([facility]) [address] [facility] [address], [place], [address], 01/02/2025 07:14:38 01/02/2001/02/2025 IRON AND TIBC iron 53 ug/dL 27-159 normal Not Available [facility] ([facility]) [address] [facility] [address], [place], [address], 01/02/2025 07:14:38 01/02/2001/02/2025 IRON AND TIBC iron saturation 16 % 15-55 normal Not Available [facility] ([facility]) [address] [place], [address], 01/02/2025 07:14:38 01/02/2001/02/2025 TSH TSH 2.250 uIU/m L 0.450- 4.500 normal Not Available [facility] ([facility]) [address] [place], [address], 01/02/2025 07:14:39 01/02/2001/02/2025 VITAM IN D, 25-HY [...] um and D. Kelsey rashid [place]: The [facility] . 2. Jammie pelaez MF, Leena friedman [place], Parish off-F errar i ROJO, et al. Evalu ation , treat ment, and preve ntion of vitam in D defic iency : an Endoc rine Socie ty clini sully pract ice guide line. JCEM. 2010; 96(7) :1911 -30. Not Available [facility] ([facility]) [address] [facility] [address], [place], [address], 01/02/2025 07:14:39 01/02/20 25 01/02/2025 VITAM IN B12 vitamin B12 438 pg/mL 232-12 45 normal Not Available [facility] ([facility]) [address] [place], [address], 01/02/2025 07:14:40 01/02/20 25 01/02/2025 CHRIS TIN ferritin 60 NG/mL 15-150 normal Not Available [facility] ([facility]) [address] [facility] [address], [place], [address], 01/02/2025 07:14:40 01/02/20 25 09/18/2024 home sleep testi wilton (PROC ) No observ ation record ed. [facility] (Med Record) [address], [place], [address], 01/01/2025 11:47:39 01/12/20 25 01/02/2025 compl ete PFT w/ post [facility] hodil ator jelly metry * No observ ation record ed. [facility] (Medical Records) [address] [place], [address], 01/14/2025 13:35:25 Result Notes None recorded. Problems Name Problem SNOMED Code Status Onset Date Resolution Date Notes Provider Name and Address Organization Details Recorded Time Fibromyalgia 852536332 Active 2024 Yahaira Pandey PA-C [address], [place], [address], [place] - [facility] 5 11:12:18 Obsessive-comp ulsive disorder 412685696 Active 2024 Yahaira Pandey PA-C [address], [place], [address], [place] [facility] 5 11:12:28 Bipolar disorder 83980161 Active 2024 Yahaira Pandey PA-C [address], [place], [address], [place] [facility] 5 11:12:36 Migraine 08601959 Active 2024 Yahaira Pandey PA-C [address], [place], [address], [place] [facility] 5 11:12:44 Iron deficiency 10317536 Active 2024 Yahaira Pandey PA-C [address], [place], [address], [place] [facility] 5 09:36:47 [...] Last Updated DateTime 172.72 cm 33.7 kg/m2 896475. 01 g 97.2 [degF] 16 /min 99 % 78 /min 124/80 mm[Hg] Muna Patterson RN [address], [place], [address], [place] - [facility] 5 09:30:23 Social History Question Answer Notes LastModified by Organizat ion Details LastModified Time Tobacco Smoking Status Never Smoker Zonia Valadez [facility], [place] - [facility] 06/26/2024 10:40:46 Do You Have [...] Or The Highest Degree You Have Received? [id number] Information not available 07/05/2024 What Was The [...] anxious, or unable to sleep at night)? [id number] Information not available 07/05/2024 Family History Relationship [...] ICD10 Code Diagnosis IMO Codes Diagnosis Note [id number] Yahaira Pandey PA-C [facility] [address] [place] [address] 01/01/2025 09:20:56 01/01/2025 10:31:53 Fatigue 83846103 R53.83 12645434 Dyspnea 357103178 R06.02 [address]604 Health Concerns Section Related Observation LastModified by Organization Detai ls LastModified Time None Recorded Concern Status LastModified by Organization Details LastModified Time None Recorded Payers Encounter Date Sequence Insurance Name Policy Number Policy Gaxiola Covered Member ID Gaxiola Member ID Guarantor Name 01/01/2025 1 [facility] (MEDICARE REPLACEMENT/A DVANTAGE - PPO) [place]NP Pravin Haynes [id number] Pravin Haynes Notes Date Note Type Note [...] weeks. Yahaira Pandey PA-C [address], [place], [address], [place] - [facility] 01/01/2025 10:34:03 OBGyn Episode No OBEpisode recorded.
--- OUTSIDE RECORDS SUMMARY | 2025-03-11 08:20 | XMS_ITS | Clinical Summary ---
Author Organization [employer] ([place], [place], [place], [place], [place]) Address [address] [place] [address] Care Team Providers Care Student Success Advisor Name Role Phone Unavailable Primary Care Provider Unavailabl e Social History Tobacco Use Types Packs/Day Years Used Date Smoking Tobacco: Never Assessed Food Insecurity Answer Date Recorded Food run out past 12 months Not on file 06/2023 Food did not last past 12 months Not on file 12/20/2023 Employment Answer Date Recorded Help finding and keeping a job Not on file 0 12/20/2023 Family and Community Support Answer Rafiq e Recorded Help with Day to Day Activities Not on file 12/20/2023 Feeling Lonely or Isolated Not on file 12/19 Educational Attainment Answer Date Denis rded Speak language other than Slovenian at home Not on file 12/20/2023 Want help with school or training Not on file 12/20/2023 Substance Use Answer Date Recorded Used prescription meds for non-medical reasons N ot on file 12/20/2023 Used illegal drugs past 12 months Not on file 12/20/2023 Comments Unknown Sex and Gender Information Value Date Recorded Sex Assigned at Not on file Legal Sex Unknown 12/20/2023 11:09 AM CDT Gender Identity Not on file Sexual Orientation Not on file Plan of Treatment Upcoming Encounters Date Type Department Care Team (Late st Contact Info) Description 03/26/2025 9:00 AM EST Office Visit [facility] Neurology [address] [place] [address] Melyssa Gilbert MD [address] [place], [place] [id number] Health Maintenance Due Date Last Done Comments Depression Screening (12+) 2008 Tobacco Cessation Counseling and Screening (12+) 2008 HIV Screening 10/18/2011 Hepatitis C Screening 2014 DTAP/TDAP/TD VACCINES (1 - Tdap) 10/18/2015 Medicare Initial AWV [id number] 09/17/2022 COVID-19 VACCINE (1 - 2023-2 5 season) 2024 Influenza Vaccine (#1) 2024 Pneumococcal Vaccine: 0-49 Years Aged Out No longer eligible based on patient's age to complete this topic Insurance MEDICARE PART A B
--- OUTSIDE RECORDS SUMMARY | 2025-03-11 08:20 | XMS_ITS | Continuity of Care Document ---
Author Organization [facility], [facility] Address [address] [place] [address] Assessment No assessment recorded. Plan of Treatment Reminders Order Date Submit Date Provider Last Modified By Organization Details Last Modified Time Details Appointments None recorded. Lab CBC w/ auto diff 2024 025 [facility], [address], [place], [address], 04:10:48 Referral physical therapist referral 2024 025 [facility], [address], [place], [address], 15:15:43 Procedures None recorded. Surgeries None recorded. Imaging [...] .8 above high normal Not Available [facility] ([facility]) [address], [place], [address], 01/02/2025 07:14:37 01/02/20 25 01/02/2025 CBC WITH DIFFE RENTI AL/PL ATELE T RBC 4.66 x10e6 /uL 3.77-5 .28 normal Not Available [facility] ([facility]) [address] [place], [address], 01/02/2025 07:14:37 01/02/2001/02/2025 CBC WITH DIFFE RENTI AL/PL ATELE T hemoglobin 13.6 g/dL 11.1-1 5.9 normal Not Available [facility] ([facility]) [address] [place], [address], 01/02/2025 07:14:37 01/02/2001/02/2025 CBC WITH DIFFE RENTI AL/PL ATELE T hematocrit 42.9 % 34.0-4 6.6 normal Not Available [facility] ([facility]) [address] [place], [address], 01/02/2025 07:14:37 01/02/2001/02/2025 CBC WITH DIFFE RENTI AL/PL ATELE T MCV 92 fL 79-97 normal Not Available [facility] ([facility]) [address] [place], [address], 01/02/2025 07:14:37 01/02/2001/02/2025 CBC WITH DIFFE RENTI AL/PL ATELE T MCH 29.2 pg 26.6-3 3.0 normal Not Available [facility] ([facility]) [address] [place], [address], 01/02/2025 07:14:37 01/02/2001/02/2025 CBC WITH DIFFE RENTI AL/PL ATELE T MCHC 31.7 g/dL 31.5-3 5.7 normal Not Available [facility] ([facility]) [address] [place], [address], 01/02/2025 07:14:37 01/02/2001/02/2025 CBC WITH DIFFE RENTI AL/PL ATELE T RDW 12.6 % 11.7-1 5.4 Not Available [facility] ([facility]) [address] [facility], [place], [address], 01/02/2025 07:14:37 01/02/2001/02/2025 CBC WITH DIFFE RENTI AL/PL ATELE T platelets 402 x10e3 /uL 150-45 0 normal Not Available [facility] ([facility]) [address] [facility], [place], [address], 01/02/2025 07:14:37 01/02/2001/02/2025 CBC WITH DIFFE RENTI AL/PL ATELE T neutrophils 62 % not estab. normal Not Available [facility] ([facility]) [address] [facility], [place], [address], 01/02/2025 07:14:37 01/02/2001/02/2025 CBC WITH DIFFE RENTI AL/PL ATELE T lymphs 29 % not estab. normal Not Available [facility] ([facility]) [address] [facility], [place], [address], 01/02/2025 07:14:37 01/02/2001/02/2025 CBC WITH DIFFE RENTI AL/PL ATELE T monocytes 6 % not estab. normal Not Available [facility] ([facility]) [address] [facility], [place], [address], 01/02/2025 07:14:37 01/02/2001/02/2025 CBC WITH DIFFE RENTI AL/PL ATELE T eos 2 % not estab. normal Not Available [facility] ([facility]) [address] [facility], [place], [address], 01/02/2025 07:14:37 01/02/20 25 01/02/2025 CBC WITH DIFFE RENTI AL/PL ATELE T basos 1 % not estab. normal Not Available [facility] ([facility]) [address] [facility], [place], [address], 01/02/2025 07:14:37 01/02/20 25 01/02/2025 CBC WITH DIFFE RENTI AL/PL ATELE T immature cells PRODUCTION SUPPORT MANAGER Not Available [facility] ([facility]) [address] [facility], [place], [address], 01/02/2025 07:14:37 01/02/20 25 01/02/2025 CBC WITH DIFFE RENTI AL/PL ATELE T neutrophils (absolute) 8.6 x10e3 /uL 1.4-7. 0 above high normal Not Available [facility] ([facility]) [address] [facility], [place], [address], 01/02/2025 07:14:37 01/02/20 25 01/02/2025 CBC WITH DIFFE RENTI AL/PL ATELE T lymphs (absolute) 4.0 x10e3 /uL 0.7-3. 1 above high normal Not Available [facility] ([facility]) [address] [facility] [address], [place], [address], 01/02/2025 07:14:37 01/02/20 25 01/02/2025 CBC WITH DIFFE RENTI AL/PL ATELE T monocytes(ab solute) 0.9 x10e3 /uL 0.1-0. 9 normal Not Available [facility] ([facility]) [address] [place], [address], 01/02/2025 07:14:37 01/02/20 25 01/02/2025 CBC WITH DIFFE RENTI AL/PL ATELE T eos (absolute) 0.3 x10e3 /uL 0.0-0. 4 normal Not Available [facility] ([facility]) [address] [place], [address], 01/02/2025 07:14:37 01/02/20 25 01/02/2025 CBC WITH DIFFE RENTI AL/PL ATELE T baso (absolute) 0.1 x10e3 /uL 0.0-0. 2 normal Not Available [facility] ([facility]) [address] [facility] [address], [place], [address], 01/02/2025 07:14:37 01/02/20 25 01/02/2025 CBC WITH DIFFE RENTI AL/PL ATELE T immature granulocytes 0 % not estab. Not Available [facility] ([facility]) [address] [facility], [place], [address], 01/02/2025 07:14:37 01/02/20 25 01/02/2025 CBC WITH DIFFE RENTI AL/PL ATELE T immature grans (abs) 0.0 x10e3 /uL 0.0-0. 1 Not Available [facility] ([facility]) [address] [facility] [address], [place], [address], 01/02/2025 07:14:37 01/02/20 25 01/02/2025 CBC WITH DIFFE RENTI AL/PL ATELE T NRBC PRODUCTION SUPPORT MANAGER Not Available [facility] ([facility]) [address] [facility] [address], [place], [address], 01/02/2025 07:14:37 01/02/20 25 01/02/2025 CBC WITH DIFFE RENTI AL/PL ATELE T hematology comments: PRODUCTION SUPPORT MANAGER Not Available [facility] ([facility]) [address] [place], [address], 01/02/2025 07:14:37 01/02/20 25 01/02/2025 BASIC METAB OLIC PANEL (8) glucose 84 mg/dL 70-99 normal Not Available [facility] ([facility]) [address] [place], [address], 01/02/2025 07:14:38 01/02/20 25 01/02/2025 BASIC METAB OLIC PANEL (8) BUN 8 mg/dL 6-20 normal Not Available [facility] ([facility]) [address] [facility] [place], [address], 01/02/2025 07:14:38 01/02/2001/02/2025 BASIC METAB OLIC PANEL (8) creatinine 0.91 mg/dL 0.57-1 .00 normal Not Available [facility] ([facility]) [address] [place], [address], 01/02/2025 07:14:38 01/02/2001/02/2025 BASIC METAB OLIC PANEL (8) eGFR 88 mL/mi n/1.7 3 >59 normal Not Available [facility] ([facility]) [address] [facility] [place], [address], 01/02/2025 07:14:38 01/02/2001/02/2025 BASIC METAB OLIC PANEL (8) BUN/creatini ne ratio 9 9-23 normal Not Available [facility] ([facility]) [address] [facility], [address], 01/02/2025 07:14:38 01/02/2001/02/2025 BASIC METAB OLIC PANEL (8) sodium 139 mmol/ L 134-14 4 normal Not Available [facility] ([facility]) [address] [facility], [address], 01/02/2025 07:14:38 01/02/2001/02/2025 BASIC METAB OLIC PANEL (8) potassium 4.2 mmol/ L 3.5-5. 2 normal Not Available [facility] ([facility]) [address] [facility], [address], 01/02/2025 07:14:38 01/02/2001/02/2025 BASIC METAB OLIC PANEL (8) chloride 108 mmol/ L 96-106 above high normal Not Available [facility] ([facility]) [address] [facility], [address], 01/02/2025 07:14:38 01/02/20 25 01/02/2025 BASIC METAB OLIC PANEL (8) carbon dioxide, total 17 mmol/ L 20-29 below low normal Not Available [facility] ([facility]) [address] [place], [address], 01/02/2025 07:14:38 01/02/20 25 01/02/2025 BASIC METAB OLIC PANEL (8) calcium 9.4 mg/dL 8.7-10 .2 normal Not Available [facility] ([facility]) [address] [place], [address], 01/02/2025 07:14:38 01/02/20 25 01/02/2025 IRON AND TIBC iron bind.cap.(TI BC) 330 ug/dL 250-45 0 normal Not Available [facility] ([facility]) [address] [place], [address], 01/02/2025 07:14:38 01/02/20 25 01/02/2025 IRON AND TIBC UIBC 277 ug/dL 131-42 5 normal Not Available [facility] ([facility]) [address] [place], [address], 01/02/2025 07:14:38 01/02/20 25 01/02/2025 IRON AND TIBC iron 53 ug/dL 27-159 normal Not Available [facility] ([facility]) [address] [place], [address], 01/02/2025 07:14:38 01/02/20 25 01/02/2025 IRON AND TIBC iron saturation 16 % 15-55 normal Not Available [facility] ([facility]) [address] [place], [address], 01/02/2025 07:14:38 01/02/20 25 01/02/2025 TSH TSH 2.250 uIU/m L 0.450- 4.500 normal Not Available [facility] ([facility]) [address] [facility] [address], [place], [address], 01/02/2025 07:14:39 01/02/2001/02/2025 VITAM IN D, 25-HY [...] and D. Kelsey rashid DC: The [facility] . 2. Jammie pelaez MF, Leena friedman [place], Parish off-F errar i ROJO, et al. Evalu ation , treat ment, and preve ntion of vitam in D defic iency : an Endoc rine Socie ty clini sully pract ice guide line. JCEM. 2010; 96(7) :1911 -30. Not Available [facility] ([facility]) [address] [facility], [place], [address], 01/02/2025 07:14:39 01/02/2001/02/2025 VITAM IN B12 vitamin B12 438 pg/mL 232-12 45 normal Not Available [facility] ([facility]) [address] [facility] [address], [place], [address], 01/02/2025 07:14:40 01/02/20 25 01/02/2025 CHRIS TIN ferritin 60 NG/mL 15-150 normal Not Available [facility] ([facility]) [address] [facility] [address], [place], [address], 01/02/2025 07:14:40 01/16/20 25 01/16/2025 CBC WITH DIFFE RENTI AL/PL ATELE T WBC 13.0 x10e3 /uL 3.4-10 .8 above high normal Not Available [facility] ([facility]) [address] [facility], [place], [address], 01/16/2025 04:10:48 01/16/20 25 01/16/2025 CBC WITH DIFFE RENTI AL/PL ATELE T RBC 4.64 x10e6 /uL 3.77-5 .28 normal Not Available [facility] ([facility]) [address] [facility] [address], [place], [address], 01/16/2025 04:10:48 01/16/20 25 01/16/2025 CBC WITH DIFFE RENTI AL/PL ATELE T hemoglobin 13.5 g/dL 11.1-1 5.9 normal Not Available [facility] ([facility]) [address] [facility] [address], [place], [address], 01/16/2025 04:10:48 01/16/20 25 01/16/2025 CBC WITH DIFFE RENTI AL/PL ATELE T hematocrit 43.8 % 34.0-4 6.6 normal Not Available [facility] ([facility]) [address] [facility] [address] [address], [place], [address], 01/16/2025 04:10:48 01/16/20 25 01/16/2025 CBC WITH DIFFE RENTI AL/PL ATELE T MCV 94 fL 79-97 normal Not Available [facility] ([facility]) [address] [facility] [address] [address], [place], [address], 01/16/2025 04:10:48 01/16/20 25 01/16/2025 CBC WITH DIFFE RENTI AL/PL ATELE T MCH 29.1 pg 26.6-3 3.0 normal Not Available [facility] ([facility]) [address] [facility] [address], [place], [address], 01/16/2025 04:10:48 01/16/20 25 01/16/2025 CBC WITH DIFFE RENTI AL/PL ATELE T MCHC 30.8 g/dL 31.5-3 5.7 below low normal Not Available [facility] ([facility]) [address] [facility], [place], [address], 01/16/2025 04:10:48 01/16/20 25 01/16/2025 CBC WITH DIFFE RENTI AL/PL ATELE T RDW 12.6 % 11.7-1 5.4 Not Available [facility] ([facility]) [address] [facility] [address] [address], [place], [address], 01/16/2025 04:10:48 01/16/20 25 01/16/2025 CBC WITH DIFFE RENTI AL/PL ATELE T platelets 416 x10e3 /uL 150-45 0 normal Not Available [facility] ([facility]) [address] [facility] [address], [place], [address], 01/16/2025 04:10:48 01/16/20 25 01/16/2025 CBC WITH DIFFE RENTI AL/PL ATELE T neutrophils 69 % not estab. normal Not Available [facility] ([facility]) [address] [facility] [address], [place], [address], 01/16/2025 04:10:48 01/16/20 25 01/16/2025 CBC WITH DIFFE RENTI AL/PL ATELE T lymphs 23 % not estab. normal Not Available [facility] ([facility]) [address] [place], [address], 01/16/2025 04:10:48 01/16/20 25 01/16/2025 CBC WITH DIFFE RENTI AL/PL ATELE T monocytes 5 % not estab. normal Not Available [facility] ([facility]) [address] [place], [address], 01/16/2025 04:10:48 01/16/20 25 01/16/2025 CBC WITH DIFFE RENTI AL/PL ATELE T eos 2 % not estab. normal Not Available [facility] ([facility]) [address] [place], [address], 01/16/2025 04:10:48 01/16/20 25 01/16/2025 CBC WITH DIFFE RENTI AL/PL ATELE T basos 1 % not estab. normal Not Available [facility] ([facility]) [address] [facility] [address], [place], [address], 01/16/2025 04:10:48 01/16/20 25 01/16/2025 CBC WITH DIFFE RENTI AL/PL ATELE T immature cells PRODUCTION SUPPORT MANAGER Not Available [facility] ([facility]) [address] [place], [address], 01/16/2025 04:10:48 01/16/20 25 01/16/2025 CBC WITH DIFFE RENTI AL/PL ATELE T neutrophils (absolute) 8.8 x10e3 /uL 1.4-7. 0 above high normal Not Available [facility] ([facility]) [address] [place], [address], 01/16/2025 04:10:48 01/16/20 25 01/16/2025 CBC WITH DIFFE RENTI AL/PL ATELE T lymphs (absolute) 3.0 x10e3 /uL 0.7-3. 1 normal Not Available [facility] ([facility]) [address] [place], [address], 01/16/2025 04:10:48 01/16/20 25 01/16/2025 CBC WITH DIFFE RENTI AL/PL ATELE T monocytes(ab solute) 0.7 x10e3 /uL 0.1-0. 9 normal Not Available [facility] ([facility]) [address] [place], [address], 01/16/2025 04:10:48 01/16/20 25 01/16/2025 CBC WITH DIFFE RENTI AL/PL ATELE T eos (absolute) 0.3 x10e3 /uL 0.0-0. 4 normal Not Available [facility] ([facility]) [address] [facility] [address], [place], [address], 01/16/2025 04:10:48 01/16/20 25 01/16/2025 CBC WITH DIFFE RENTI AL/PL ATELE T baso (absolute) 0.1 x10e3 /uL 0.0-0. 2 normal Not Available [facility] ([facility]) [address] [facility] [address], [place], [address], 01/16/2025 04:10:48 01/16/20 25 01/16/2025 CBC WITH DIFFE RENTI AL/PL ATELE T immature granulocytes 0 % not estab. Not Available [facility] ([facility]) [address] [place], [address], 01/16/2025 04:10:48 01/16/20 25 01/16/2025 CBC WITH DIFFE RENTI AL/PL ATELE T immature grans (abs) 0.0 x10e3 /uL 0.0-0. 1 Not Available [facility] ([facility]) [address] [place], [address], 01/16/2025 04:10:48 01/16/20 25 01/16/2025 CBC WITH DIFFE RENTI AL/PL ATELE T NRBC PRODUCTION SUPPORT MANAGER Not Available [facility] ([facility]) [address] [place], [address], 01/16/2025 04:10:48 01/16/20 25 01/16/2025 CBC WITH DIFFE RENTI AL/PL ATELE T hematology comments: PRODUCTION SUPPORT MANAGER Not Available [facility] ([facility]) [address] [place], [address], 01/16/2025 04:10:48 01/02/20 25 09/18/2024 home sleep testi ng (PROC ) No observ ation record ed. [facility] (Med Record) [address], [place], [address], 01/01/2025 11:47:39 01/12/20 25 01/02/2025 compl ete PFT w/ post [facility] hodil ator jelly metry * No observ ation record ed. [facility] (Medical Records) [address] [place] [address] , [place], [address], 01/14/2025 13:35:25 Result Notes None recorded. Problems Name Problem SNOMED Code Status Onset Date Resolution Date Notes Provider Name and Address Organization Details Recorded Time Fibromyalgia 010472389 Active 2024 Yahaira Pandey PA-C [address], [place], [address], [place] - [facility] 5 11:12:18 Obsessive-comp ulsive disorder 556079581 Active 2024 Yahaira Pandey PA-C [address], [place], [address], [place] - [facility] 5 11:12:28 Bipolar disorder 88413860 Active 2024 Yahaira Pandey PA-C [address], [place], [address], [place] - [facility] 5 11:12:36 Migraine 17142988 Active 2024 Yahaira Pandey PA-C [address], [place], [address], [place] - [facility] 5 11:12:44 Iron deficiency 88001375 Active 2024 Yahaira Pandey PA-C [address], [place], [address], [place] - [facility] 5 09:36:47 [...] Organization Details Last Updated DateTime 172.72 cm 33.3 kg/m2 61981.7 3 g 16 /min 8 97.2 [degF] 76 /min 99 % 118/78 mm[Hg] Muna Patterson RN [address], [place], [address] [place], [place] - [facility] 08:42:43 Social History Question Answer Notes LastModified by Organizat ion Details LastModified Time Tobacco Smoking Status Never Smoker Zonia Valadez [place], [place] - [facility] 06/26/2024 10:40:46 Do You [...] Or The Highest Degree You Have Received? [id number] Information not available 07/05/2024 What Was The [...] anxious, or unable to sleep at night)? [id number] Information not available 07/05/2024 Family History Relationship [...] Influenza, split virus, trivalent, PF 02/14/2025 completed Amelia donaldson, [place] - [facility] 02/14/2025 09:43:48 Past Encounters Encounter ID Performer Location Encounter Start Date Encounter Closed Date Diagnosis/Indication Diagnosis SNOMED-CT Code Diagnosis ICD10 Code Diagnosis IMO Codes Diagnosis Note [id number] [facility] [address] [place] [address] 01/01/2025 09:20:56 01/01/2025 10:31:53 Fatigue 31095348 R53.83 [id number] Dyspnea 983542342 R06.02 81354 [id number] [facility] Pand[facility] [address] [place] [address] 01/15/2025 08:36:22 01/15/2025 09:22:47 Leukocytosis 096906593 D72.829 922653 Pain of ri ght knee joint 9560111582 89469 M25.561 [id number] Health Concerns Section Related Observation LastModified by Organization Detai ls LastModified Time None Recorded Concern Status LastModified by Organization Details LastModified Time None Recorded Payers Encounter Date Sequence Insurance Name Policy Number Policy Gaxiola Covered Member ID Gaxiola Member ID Guarantor Name 01/15/2025 1 [facility] (MEDICARE REPLACEMENT/A DVANTAGE - PPO) RICH Haynes [id number] Pravin Haynes Notes Date Note Type Note [...] now. Yahaira Pandey PA-C [address], [place], [address], [place] - [facility] 01/15/2025 09:04:23 OBGyn Episode No OBEpisode recorded.
--- OUTSIDE RECORDS SUMMARY | 2025-03-11 08:20 | XMS_ITS | Referral Summary ---
Author Organization [employer] ([place], [place], [place], [place], [place]) Address [address] [place] [address] Care Team Providers Care Instrument Operator Name Role Phone Unavailable Primary Care Provider [...] Date Denis rded Speak language other than Cymro at home Not on file 12/20/2023 Want [...] Description 03/26/2025 9:00 AM EST Office Visit [facility] Neurology [address] [place] [address] Melyssa Gilbert MD [address] [place], [place] [address] Insurance MEDICARE PART A B
--- OUTSIDE RECORDS SUMMARY | 2025-03-11 08:20 | XMS_ITS | Clinical Summary ---
Author Organization [facility] Address [address] [place] [address] Phone Care Team Providers Care Sexton Helper Name Role Phone Marlene Nieto NP Primary Care Provider [phone] Shailesh Perez PT Unavailable Allergies Active Allergy [...] to finish a HPV vaccination series through [employer]. Patient to inquire after cervical cancer screening through the [facility]. Generalized osteoarthritis of multiple sites 10/2023 [...] Gender dysphoria 07/26/2022 Overview (08/23/2023): Following with [facility] affirming services Assessment & Plan (08/23/2023 [...] the bariatric surgical information sessions provided by [facility]. Advised that she would be able to find further information regarding qualifications and expectations for these surgical and nonsurgical options. We will hold off on referral for now. Encouraged continued dietary and lifestyle modifications. Bipolar 1 disorder 07/22/2022 Assessment & Plan (08/23/2023 8:48 AM EDT): Following with psychiatry through [facility]. Assessment & Plan (08/20/2022 2:04 PM EDT): On the wait list to established with new psychiatry provider through [facility]. Assessment & Plan (07/22/2022 5:26 PM EDT): Patient given information for [place] therapy group and advised to reach out to them to establish care with local psychiatric provider. Personality disorder 07/22/2022 Assessment & Plan (08/23/2023 8:48 AM EDT): Following with psychiatry through [facility]. Also to establish with psychiatry through the [facility]. Other longwall foreman (current) drug therapy Assessment & Plan (07/22/2022 5:26 PM EDT): Long-term use of antipsychotics which can cause increased lipid and blood glucose levels. Monitoring lab work ordered today. Wyldwood use 07/22/2022 Assessment & Plan (08/20/2022 11:29 AM EDT): Wyldwood levels within normal range. Assessment & Plan [...] place to sleep or slept in a skilled nursing (including now)? No 06/02/2023 Comments No Sex [...] HEALTHCARE GRP MEDICARE PPO MR Care Teams Sexton Helper Relationship Specialty Start Date End Date Marlene Nieto NP [facility] [place] [address] PCP - General Nurse Practitioner-Family 07/22/22 Shailesh Perez, MELISSA [facility] [address] [place] [address] [phone] Physical Therapist Physical Therapist 06/20/23
--- OUTSIDE RECORDS SUMMARY | 2025-03-11 08:20 | XMS_ITS | Continuity of Care Document ---
Author Organization [facility] Address [address] [place] [address] Assessment No assessment recorded. Plan of Treatment Reminders Order Date Submit Date Provider Last Modified By Organization Details Last Modified Time Details Appointments None record ed. Lab None record ed. Referral None record ed. Procedures None record ed. Surgeries None record ed. Imaging None record ed. Medication Orders None record ed. Patient TargetsNo targets recorded. Patient InstructionsNo instructions recorded. Reason for Referral None Reported. Results Created Date Observation Date Name Description Value Unit Range Abnormal Flag Note LastModifiedBy Organization Detail LastModifiedTime 01/16/2001/16/2025 CBC WITH DIFFE RENTI AL/PL ATELE T WBC 13.0 x10e3 /uL 3.4-10 .8 above high normal Not Available [facility] [address] [place], [address], 01/16/2025 04:10:48 01/16/20 25 01/16/2025 CBC WITH DIFFE RENTI AL/PL ATELE T RBC 4.64 x10e6 /uL 3.77-5 .28 normal Not Available [facility] [address] [place], [address], 01/16/2025 04:10:48 01/16/20 25 01/16/2025 CBC WITH DIFFE RENTI AL/PL ATELE T hemoglobin 13.5 g/dL 11.1-1 5.9 normal Not Available [facility] [address] [place], [address], 01/16/2025 04:10:48 01/16/20 25 01/16/2025 CBC WITH DIFFE RENTI AL/PL ATELE T hematocrit 43.8 % 34.0-4 6.6 normal Not Available [facility] [address] [facility], [place], [address], 01/16/2025 04:10:48 01/16/20 25 01/16/2025 CBC WITH DIFFE RENTI AL/PL ATELE T MCV 94 fL 79-97 normal Not Available [facility] [address] [facility], [place], [address], 01/16/2025 04:10:48 01/16/20 25 01/16/2025 CBC WITH DIFFE RENTI AL/PL ATELE T MCH 29.1 pg 26.6-3 3.0 normal Not Available [facility] [address] [facility], [place], [address], 01/16/2025 04:10:48 01/16/20 25 01/16/2025 CBC WITH DIFFE RENTI AL/PL ATELE T MCHC 30.8 g/dL 31.5-3 5.7 below low normal Not Available [facility] [address] [place], [address], 01/16/2025 04:10:48 01/16/20 25 01/16/2025 CBC WITH DIFFE RENTI AL/PL ATELE T RDW 12.6 % 11.7-1 5.4 Not Available [facility] [address] [place], [address], 01/16/2025 04:10:48 01/16/20 25 01/16/2025 CBC WITH DIFFE RENTI AL/PL ATELE T platelets 416 x10e3 /uL 150-45 0 normal Not Available [facility] [address] [place], [address], 01/16/2025 04:10:48 01/16/20 25 01/16/2025 CBC WITH DIFFE RENTI AL/PL ATELE T neutrophils 69 % not estab. normal Not Available [facility] [address] [facility], [place], [address], 01/16/2025 04:10:48 01/16/20 25 01/16/2025 CBC WITH DIFFE RENTI AL/PL ATELE T lymphs 23 % not estab. normal Not Available [facility] [address] [facility], [place], [address], 01/16/2025 04:10:48 01/16/20 25 01/16/2025 CBC WITH DIFFE RENTI AL/PL ATELE T monocytes 5 % not estab. normal Not Available [facility] [address] [place], [address], 01/16/2025 04:10:48 01/16/20 25 01/16/2025 CBC WITH DIFFE RENTI AL/PL ATELE T eos 2 % not estab. normal Not Available [facility] [address] [facility], [place], [address], 01/16/2025 04:10:48 01/16/20 25 01/16/2025 CBC WITH DIFFE RENTI AL/PL ATELE T basos 1 % not estab. normal Not Available [facility] [address] [facility], [place], [address], 01/16/2025 04:10:48 01/16/20 25 01/16/2025 CBC WITH DIFFE RENTI AL/PL ATELE T immature cells [employer] RENTAL CLERK Not Available [facility] [address] [place], [address], 01/16/2025 04:10:48 01/16/20 25 01/16/2025 CBC WITH DIFFE RENTI AL/PL ATELE T neutrophils (absolute) 8.8 x10e3 /uL 1.4-7. 0 above high normal Not Available [facility] [address] [place], [address], 01/16/2025 04:10:48 01/16/20 25 01/16/2025 CBC WITH DIFFE RENTI AL/PL ATELE T lymphs (absolute) 3.0 x10e3 /uL 0.7-3. 1 normal Not Available [facility] [address] [facility], [place], [address], 01/16/2025 04:10:48 01/16/20 25 01/16/2025 CBC WITH DIFFE RENTI AL/PL ATELE T monocytes(ab solute) 0.7 x10e3 /uL 0.1-0. 9 normal Not Available [facility] [address] [place], [address], 01/16/2025 04:10:48 01/16/20 25 01/16/2025 CBC WITH DIFFE RENTI AL/PL ATELE T eos (absolute) 0.3 x10e3 /uL 0.0-0. 4 normal Not Available [facility] [address] [place], [address], 01/16/2025 04:10:48 01/16/20 25 01/16/2025 CBC WITH DIFFE RENTI AL/PL ATELE T baso (absolute) 0.1 x10e3 /uL 0.0-0. 2 normal Not Available [facility] [address] [place], [address], 01/16/2025 04:10:48 01/16/20 25 01/16/2025 CBC WITH DIFFE RENTI AL/PL ATELE T immature granulocytes 0 % not estab. Not Available [facility] [address] [place], [address], 01/16/2025 04:10:48 01/16/20 25 01/16/2025 CBC WITH DIFFE RENTI AL/PL ATELE T immature grans (abs) 0.0 x10e3 /uL 0.0-0. 1 Not Available [facility] [address] [facility], [place], [address], 01/16/2025 04:10:48 01/16/20 25 01/16/2025 CBC WITH DIFFE RENTI AL/PL ATELE T NRBC [employer] RENTAL CLERK Not Available [facility] [address] [facility], [place], [address], 01/16/2025 04:10:48 01/16/2001/16/2025 CBC WITH DIFFE RENTI AL/PL ATELE T hematology comments: SAFE DE[employer]IT [employer]OX RENTAL CLERK Not Available [facility] [address] [facility], [place], [address], 01/16/2025 04:10:48 Result Notes None recorded. Problems Name Problem SNOMED Code Status Onset Date Resolution Date Notes Provider Name and Address Organization Details Recorded Time Fibromyalgia 811011959 Active 2024 Yahaira Pandey PA-C [address], [place], [address], [place] - [facility] 11:12:18 Obsessive-comp ulsive disorder 234671795 Active 2024 Yahaira Pandey PA-C [address], [place], [address], [place] - [facility] 5 11:12:28 Bipolar disorder 24746427 Active 2024 Yahaira Pandey PA-C [address], [place], [address], [place] - [facility] 5 11:12:36 Migraine 86382031 Active 2024 Yahaira Pandey PA-C [address], [place], [address], [place] - [facility] 5 11:12:44 Iron deficiency 56496787 Active 2024 Yahaira Pandey PA-C [address], [place], [address], [place] - [facility] 09:36:47 Problem Notes None recorded. Procedures Surgical History Date Name Laterality Status Provider Name and Address Organization Details Recorded Time 12/10/19 24 Hysterectomy completed Zonia Girmaleman [place] - [facility] 06/26/2024 10:42:30 11/17/19 24 Adnexal surgery completed Zonia Fogleman [place] - [facility] 07/05/2024 10:21:49 04/18/19 04 ENT Surgery completed Zonia Fogleman [place] - [facility] 07/05/2024 10:21:49 Wrist arthroscopy/surge ry completed Zonia Fogleman [place] - [facility] 06/26/2024 10:41:14 Elbow arthroscopy/surge ry completed Zonia Fogleman [place] - [facility] 06/26/2024 10:41:27 Ankle arthroscopy/surge [...] Available Not Available Not Avai lable Vitals None Recorded Social History Question Answer Notes LastModified by [...] Or The Highest Degree You Have Received? [id number] Information not available 07/05/2024 What Was The [...] anxious, or unable to sleep at night)? [id number] Information not available 07/05/2024 Family History Relationship [...] Time Influenza, split virus, trivalent, PF 02/14/2025 yobany donaldson, [place] - [facility] 02/14/2025 09:43:48 Past Encounters Encounter ID Performer Location Encounter Start Date Encounter Closed Date Diagnosis/Indication Diagnosis SNOMED-CT Code Diagnosis ICD10 Code Diagnosis IMO Codes Diagnosis Note [id number] Yahaira Katherin, PA-C [facility] [address] [place] [address] 01/15/2025 08:36:22 01/15/2025 09:22:47 Leukocytosis 500410180 D72.829 646300 Pain of ri ght knee joint 2424482676 01429 M25.561 [id number] Yahaira Pandey PA-C [facility] [address] [place] [address] 02/14/2025 09:33:08 02/14/2025 10:12:03 Influenza vaccine needed 6049174884 106 Z23 Health Concerns Section Related Observation LastModified by Organization Detai ls LastModified Time None Recorded Concern Status LastModified by Organization Details LastModified Time None Recorded Payers Encounter Date Sequence Insurance Name Policy Number Policy Gaxiola Covered Member ID Gaxiola Member ID Guarantor Name 02/14/2025 1 [facility] (MEDICARE REPLACEMENT/A DVANTAGE - PPO) [id number] Pravin Haynes [id number] Pravin Haynes OBGyn Episode No OBEpisode recorded.
[2025-03-11 09:04] VITALS: BP 122/87; PULSE 69; RESP 16; TEMP 36.2; O2SAT 95; BMI 30.4
--- NOTE | 2025-03-13 10:23 | HMH.PROCNOTE ---
[facility] Procedure Note Date: 03/11/25 Time: 09:55 Procedure Note:: Tilt Table Procedure Note Procedure:? Upright Tilt Table Test Requesting Physician: Maricruz Peoples MD Indication: Syncope, Seizure activity Medications:??See chart Pre-test Vital Signs: (Supine):?BP 128/77, HR 65, O2 100% Procedure Summary: Patient placed supine on tilt table and secured with straps.? EKG, blood pressure cuff, and pulse oximeter were all in place and monitored every 5 to 10 minutes.? Table was tilted to 70 to 80 degrees within 10 to 15 seconds.? Vitals continuously monitored every 1 to 2 minutes.? Patient maintained upright position for 30 minutes.? Patient was then returned to supine position with additional monitoring of vital signs for 10 minutes.? 15 minutes into the procedure patient reported left leg shaking and stated this was a focal seizure in her hip. 25 minutes then she developed intermittent dizziness. Both symptoms resolved by the end of the test. Complications: None Conclusion: Does not meet criteria for orthostasis or POTS
== END 2025-03-11 23:59 | disposition home or self-care (01) ==
LOC: RT 03-12 09:48
PROVIDERS: PCP Physician Assistant Medical; Visit Provider Specialist
DX: R55 Syncope and collapse (principal); R56.9 Unspecified convulsions; Z90.89 Acquired absence of other organs
CPT/HCPCS: 93660